=== PATIENT | male | born 1965 | race Caucasian/White ===

== ENCOUNTER → 2017-07-03 10:32 | Outpatient (CLI) | payer OTHER, SELFPAY | PROVIDERS: Family Provider Family Medicine Geriatric Medicine; PCP Family Medicine Geriatric Medicine; Visit Provider Family Medicine Geriatric Medicine | DX: R68.83 Chills (without fever) (principal) | CPT/HCPCS: 87633 ==

== ENCOUNTER → 2017-10-08 14:14 | Outpatient (CLI) | payer OTHER, SELFPAY ==
[2017-10-08 17:30] LABS: Absolute Lymphocyte Count 1.67 X10^3/ul (0.83-4.51); Absolute Neutrophil Count 5.1 X10^3/uL (2.0-7.7); Basophil# 0.08 X10^3/uL; Eosinophil# 0.33 X10^3/uL; Eosinophils% 4.2 % (0-5); Hematocrit 46.9 % (40-54); Hemoglobin 15.3 g/dl (13.0-16.5); Lymphocyte # 1.67 X10^3/ul (4.0); Lymphocyte % 21.5 % (19-41); Mean Corp Hgb Conc 32.6 g/gl (32-36); Mean Corpuscular Volume 94.9 fL (80-94); Mean Platelet Vol. 10.4 fl (6.2-12.0); Monocyte# 0.55 X10^3/uL; Monocyte% 7.1 % (0-10); Neutrophil # 5.13 X10^3/uL (2.7-7.7); Neutrophil % 66.1 % (47-70); Platelet Count 300 K/mm3 (150-450); RBC Distribution Width CV 13.7 % (11.6-14.6); RBC Distribution Width SD 47.1 fl (35.1-43.9); Red Blood Count 4.94 M/mm3 (4.6-6.2); White Blood Count 7.8 K/mm3 (4.4-11.0)
[2017-10-08 17:31] LABS: POSITIVE COUNT NO; POSITIVE DIFFERENTIAL NO; POSITIVE MORPHOLOGY NO
[2017-10-08 17:52] LABS: ALB/GLOB Ratio 1.3 RATIO (0.9-2.4); AST(SGOT) 16 U/L (15-37); Alanine Aminotransfer ALT/SGPT 37 U/L (16-61); Albumin, Serum 4.1 g/dL (3.2-5.0); Alkaline Phosphatase 81 U/L (45-117); Anion Gap 7 (5-15); BUN 16 mg/dL (7-18); BUN/Creat Ratio 12.9 RATIO (10-20); Calcium,Total 8.4 mg/dL (8.5-10.1); Chloride 106 mmol/L (98-107); Creatinine, Serum 1.24 mg/dL (0.70-1.30); EST Glomerular Filtration Rate 65 mL/min (>60); Est Glom Filt Rate - Afr Amer 79 mL/min (>60); Globulin 3.1 g/dL (2.2-4.2); Glucose 166 mg/dL (74-106); Potassium 4.3 mmol/L (3.5-5.1); Protein, Total 7.2 g/dL (6.4-8.2); Sodium Level 141 mmol/L (136-145); Thyroid Stim Hormone (TSH) 1.32 uIU/mL (0.358-3.74)
== END ==
PROVIDERS: Family Provider Family Medicine Geriatric Medicine; PCP Family Medicine Geriatric Medicine; Visit Provider Family Medicine Geriatric Medicine
DX: I10 Essential (primary) hypertension (principal)
CPT/HCPCS: 36415; 80053; 84443; 85025

== ENCOUNTER → 2018-08-17 12:13 | Outpatient (CLI) | payer OTHER, SELFPAY | PROVIDERS: Family Provider Family Medicine Geriatric Medicine; PCP Family Medicine Geriatric Medicine; Referring Provider Family Medicine Geriatric Medicine; Visit Provider Family Medicine Geriatric Medicine | DX: R68.83 Chills (without fever) (principal) | CPT/HCPCS: 87633 ==

== ENCOUNTER → 2018-10-12 09:45 | Outpatient (CLI) | payer OTHER, SELFPAY ==
[2018-10-12 10:34] LABS: Absolute Lymphocyte Count 1.57 X10^3/ul (0.83-4.51); Absolute Neutrophil Count 4.6 X10^3/uL (2.0-7.7); Basophil# 0.11 X10^3/uL; Basophil% 1.5 % (0-1); Eosinophil# 0.47 X10^3/uL; Eosinophils% 6.3 % (0-5); Hemoglobin 16.4 g/dl (13.0-16.5); Lymphocyte # 1.57 X10^3/ul (4.0); Lymphocyte % 20.9 % (19-41); Mean Corp Hgb Conc 34.2 g/gl (32-36); Mean Corpuscular Hgb 30.9 pg (27.0-32.0); Mean Corpuscular Volume 90.4 fL (80-94); Mean Platelet Vol. 10.3 fl (6.2-12.0); Monocyte# 0.73 X10^3/uL; Monocyte% 9.7 % (0-10); Neutrophil # 4.61 X10^3/uL (2.7-7.7); Neutrophil % 61.5 % (47-70); Platelet Count 317 K/mm3 (150-450); RBC Distribution Width CV 13.6 % (11.6-14.6); RBC Distribution Width SD 45.1 fl (35.1-43.9); Red Blood Count 5.31 M/mm3 (4.6-6.2); White Blood Count 7.5 K/mm3 (4.4-11.0)
[2018-10-12 10:36] LABS: POSITIVE COUNT NO; POSITIVE DIFFERENTIAL NO; POSITIVE MORPHOLOGY NO
[2018-10-12 11:41] LABS: ALB/GLOB Ratio 1.1 RATIO (0.9-2.4); AST(SGOT) 36 U/L (15-37); Alanine Aminotransfer ALT/SGPT 68 U/L (16-61); Albumin, Serum 4.1 g/dL (3.2-5.0); Alkaline Phosphatase 111 U/L (45-117); Anion Gap 8 (5-15); BUN 17 mg/dL (7-18); BUN/Creat Ratio 11.9 RATIO (10-20); Calcium,Total 9.7 mg/dL (8.5-10.1); Chloride 105 mmol/L (98-107); Creatinine, Serum 1.43 mg/dL (0.70-1.30); EST Glomerular Filtration Rate 55 mL/min (>60); Est Glom Filt Rate - Afr Amer 67 mL/min (>60); Globulin 3.6 g/dL (2.2-4.2); Glucose 101 mg/dL (74-106); Potassium 4.3 mmol/L (3.5-5.1); Protein, Total 7.7 g/dL (6.4-8.2); Sodium Level 141 mmol/L (136-145); Thyroid Stim Hormone (TSH) 3.17 uIU/mL (0.358-3.74)
== END ==
PROVIDERS: Family Provider Family Medicine Geriatric Medicine; PCP Family Medicine Geriatric Medicine; Visit Provider Family Medicine Geriatric Medicine
DX: I10 Essential (primary) hypertension (principal); E23.6 Other disorders of pituitary gland
CPT/HCPCS: 36415; 80053; 84403; 84443; 85025

== ENCOUNTER 2019-01-04 08:12 | Emergency (ER) | payer OTHER, SELFPAY ==
[2019-01-04 08:13] VITALS: BP 173/107; PULSE 107; RESP 16; TEMP 36.7; O2SAT 97; BMI 35.9
--- NOTE | 2019-01-04 08:17 | NURSING ---
NO OLD EKGS
--- NOTE | 2019-01-04 08:27 | EKG12_ITS ---
Test Reason : CP Blood Pressure : / mmHG Vent. Rate : 105 BPM Atrial Rate : 105 BPM P-R Int : 174 ms QRS Dur : 084 ms QT Int : 336 ms P-R-T Axes : 040 049 026 degrees QTc Int : 444 ms Sinus tachycardia Otherwise normal ECG Confirmed by CHRIS MATHEWS, BRIONNA ([id number]), editorial project manager EDYTA SUAZO ([id number]) on 01/06/2019 8:53:28 AM Referred By: SHIRLEY Confirmed By:BRIONNA PEREZ MD
--- NOTE | 2019-01-04 08:28 | ED.VISSUMM ---
- ER Visit Summary Date of Service: 01/04/19 Chief Complaint: Chest pain History of Present Illness: The patient is a 53 M who presents emergency department for the evaluation of chest pain. Patient states at 0600 hrs. today he experienced the sensation he cannot take a full breath. Feels a tightness across his entire chest. Does not radiate. No sweating. He has been having diarrhea since Friday after eating [employer]. No vomiting. Have a history of reflux symptoms with that have actually been pretty good the past week. Patient states that he never comes to the emergency department but today he was very scared considering his family history. He states his grandfather father and his uncles have all had early heart disease. He had a stress test around the age of 41 that he states was negative. He is a non-smoker. He denies any changes in exercise tolerance. 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 Physical Examination: Afebrile vital signs are stable noted heart rate 107 Gen: Well-nourished well-developed Head: Normocephalic atraumatic Eyes: Perrl EOMI ENT: TMs clear no rhinorrhea moist mucous membranes Neck: Supple no lymphadenopathy no JVD nontender CVS: Regular rate rhythm no murmurs normal S1-S2 Respiratory: No distress clear to auscultation bilaterally chest nontender Abdomen: Soft nontender nondistended normal bowel sounds no masses Back: Nontender Extremity: Nontender no edema Skin: Normal color no rash Neuro: alert orientated ?3 CN II-XII intact normal strength sensation reflexes gait cerebellar Psych: Patient is nervous Test Results: EKG showed a sinus tachycardia at a rate of 105. Basic labs showed a creatinine 1.38. D-dimer 0.44. Troponin is negative. Chest x-ray negative Emergency Department Course and Treatment: Patient's symptoms were abating on its own. He had heartburn that resolved with a single nitroglycerin. He had taken aspirin at home. In speaking with the patient and calculated his YONATHAN score and his heart score we will proceed with a second troponin III hours after the first draw. Second troponin was also negative. At this point he is classified as low risk with both pathways. 2- troponins. Will be discharged to have follow-up with his primary care physician to arrange outpatient stress testing. Return if worsening or concerns Impression: 1. Acute chest pain This note was generated with [employer] software. It may contain incorrect words, spelling, and punctuation that were not noted in review of the chart prior to signing ED Disposition - Plan for ED Patient: Disposition: Home or Assisted Living Instructions: CHEST PAIN, Uncertain Cause Referrals: Robbi Turner Chi, MD [Primary Care Provider] - As soon as possible
--- NOTE | 2019-01-04 08:30 | RAD_ITS ---
STUDY: X-RAY CHEST REASON FOR EXAM: Male, 53 years old. Chest pain. Shortness of breath. TECHNIQUE: Single AP portable view of the chest. COMPARISON: None. FINDINGS: EKG electrodes are seen. Elevation of the right hemidiaphragm. There is no demonstrated pleural abnormality. Normal size heart. Normal mediastinum and kevin. Normal visualized pulmonary arteries. Normal visualized aortic arch and descending thoracic aorta. Normal visualized thoracic spine. Normal visualized ribs, clavicles, and shoulders. There is no demonstrated abnormality of the visualized soft tissue structures of the upper abdomen. RAD/Chest 1 View (Portable) IMPRESSION: No acute abnormality is seen. Electronically Signed: Nabeel Herr, at 8:51 EDT , Service support ,
[2019-01-04 08:52] LABS: Absolute Lymphocyte Count 1.27 X10^3/uL (0.83-4.51); Absolute Neutrophil Count 4.4 X10^3/uL (2.0-7.7); Basophil# 0.05 X10^3/uL; Basophil% 0.7 % (0-1); Eosinophil# 0.47 X10^3/uL; Eosinophils% 6.9 % (0-5); Hematocrit 48.7 % (40-54); Hemoglobin 16.2 g/dL (13.0-16.5); Lymphocyte # 1.27 X10^3/ul (4.0); Lymphocyte % 18.6 % (19-41); Mean Corp Hgb Conc 33.3 g/dL (32-36); Mean Corpuscular Volume 93.3 fL (80-94); Mean Platelet Vol. 9.7 fl (6.2-12.0); Monocyte# 0.64 X10^3/uL; Monocyte% 9.4 % (0-10); NRBC Flagged by Analyzer 0 % (0-5); Neutrophil % 64.3 % (47-70); Platelet Count 293 K/mm3 (150-450); RBC Distribution Width CV 13.1 % (11.6-14.6); RBC Distribution Width SD 44.7 fl (35.1-43.9); Red Blood Count 5.22 M/mm3 (4.6-6.2); White Blood Count 6.8 K/mm3 (4.4-11.0)
[2019-01-04 09:05] LABS: D-Dimer Quantitative (DVT/PE) 0.44 FEU/ug/m (0.27-0.49)
[2019-01-04] MEDS: Nitroglycerin SL (ED/IMG/CATH) 0.4 MG TABLET SUBLINGUAL (09:05)
[2019-01-04 09:09] LABS: Anion Gap 6 (5-15); BUN 15 mg/dL (7-18); BUN/Creat Ratio 10.9 RATIO (10-20); Calcium,Total 9.3 mg/dL (8.5-10.1); Chloride 106 mmol/L (98-107); Creatinine, Serum 1.38 mg/dL (0.70-1.30); EST Glomerular Filtration Rate 57 mL/min (>60); Est Glom Filt Rate - Afr Amer 70 mL/min (>60); Estimated Creatinine Clearance 76.88 ml/min; Glucose 137 mg/dL (74-106); Potassium 3.7 mmol/L (3.5-5.1); Sodium Level 139 mmol/L (136-145)
[2019-01-04 09:13] VITALS: BP 123/93; PULSE 96; RESP 13; O2SAT 94
[2019-01-04 10:09] VITALS: BP 137/92; PULSE 86; RESP 14; O2SAT 96
[2019-01-04 11:56] VITALS: BP 133/95; PULSE 90; RESP 12; O2SAT 96
[2019-01-04 12:27] VITALS: BP 133/105; PULSE 83
== END 2019-01-04 12:27 | disposition home or self-care (01) ==
PROVIDERS: Emergency Provider Emergency Medicine; Family Provider Family Medicine Geriatric Medicine; PCP Family Medicine Geriatric Medicine
DX: R07.9 Chest pain, unspecified (principal); R19.7 Diarrhea, unspecified; R00.0 Tachycardia, unspecified; K21.9 Gastro-esophageal reflux disease without esophagitis; Z79.899 Other long term (current) drug therapy
CPT/HCPCS: 71045; 80048; 84484; 85025; 85379; 93005; 99284; A4216

== ENCOUNTER 2019-01-09 18:18 | Emergency (ER) | payer OTHER, SELFPAY ==
[2019-01-09 18:18] VITALS: BP 137/79; PULSE 101; RESP 21; O2SAT 95
[2019-01-09 18:19] VITALS: BP 137/79; PULSE 102; RESP 18; TEMP 36.7; O2SAT 93; BMI 37.5
[2019-01-09 18:28] VITALS: O2SAT 94
--- NOTE | 2019-01-09 18:28 | EKG12_ITS ---
Test Reason : CP Blood Pressure : / mmHG Vent. Rate : 098 BPM Atrial Rate : 098 BPM P-R Int : 172 ms QRS Dur : 090 ms QT Int : 358 ms P-R-T Axes : 028 015 014 degrees QTc Int : 457 ms Normal sinus rhythm Normal ECG Confirmed by CHRISTIAN MATHEWS, LIZZIE ([id number]), photography editor EDYTA SUAZO ([id number]) on 01/12/2019 1:22:36 PM Referred By: JOAN Confirmed By:LIZZIE GONZALES MD
--- NOTE | 2019-01-09 18:30 | RAD_ITS ---
STUDY: X-RAY CHEST REASON FOR EXAM: Male, 53 years old. Chest pain. TECHNIQUE: Single frontal view of the chest. COMPARISON: January 04, 2019 FINDINGS: There is persistent elevation of the right hemidiaphragm. There is no new focal consolidation. Normal size heart. Normal mediastinum and kevin. Normal visualized pulmonary arteries. Normal visualized aortic arch and descending thoracic aorta. Normal visualized thoracic spine. Normal visualized ribs, clavicles, and shoulders. There is no demonstrated abnormality of the visualized soft tissue structures of the upper abdomen. RAD/Chest 1 View (Portable) IMPRESSION: No acute cardiopulmonary process. Electronically Signed: Leonor Berman MD at 18:58 EDT Tel , Service support ,
[2019-01-09 18:41] LABS: Absolute Lymphocyte Count 2.67 X10^3/uL (0.83-4.51); Absolute Neutrophil Count 6.1 X10^3/uL (2.0-7.7); Basophil# 0.11 X10^3/uL; Basophil% 1.1 % (0-1); Eosinophil# 0.52 X10^3/uL; Hematocrit 44.5 % (40-54); Hemoglobin 15.1 g/dL (13.0-16.5); Lymphocyte # 2.67 X10^3/ul (4.0); Lymphocyte % 25.8 % (19-41); Mean Corp Hgb Conc 33.9 g/dL (32-36); Mean Corpuscular Hgb 31.4 pg (27.0-32.0); Mean Corpuscular Volume 92.5 fL (80-94); Mean Platelet Vol. 9.8 fl (6.2-12.0); Monocyte# 0.88 X10^3/uL; Monocyte% 8.5 % (0-10); NRBC Flagged by Analyzer 0 % (0-5); Platelet Count 315 K/mm3 (150-450); RBC Distribution Width CV 13.2 % (11.6-14.6); RBC Distribution Width SD 44.9 fl (35.1-43.9); Red Blood Count 4.81 M/mm3 (4.6-6.2); White Blood Count 10.3 K/mm3 (4.4-11.0)
[2019-01-09 18:53] LABS: Prothrombin Time (Protime)PT. 12.8 SECONDS (11.7-14.9)
[2019-01-09 18:58] LABS: Anion Gap 8 (5-15); BUN 15 mg/dL (7-18); BUN/Creat Ratio 10.7 RATIO (10-20); Calcium,Total 8.7 mg/dL (8.5-10.1); Chloride 108 mmol/L (98-107); EST Glomerular Filtration Rate 57 mL/min (>60); Est Glom Filt Rate - Afr Amer 68 mL/min (>60); Estimated Creatinine Clearance 75.78 ml/min; Glucose 130 mg/dL (74-106); Potassium 3.3 mmol/L (3.5-5.1); Sodium Level 140 mmol/L (136-145)
--- NOTE | 2019-01-09 19:20 | CT_ITS ---
STUDY: CTA CHEST REASON FOR EXAM: Male, 53 years old. Pleuritic chest pain. RADIATION DOSAGE (If Supplied By Facility): CTDIvol = ( 12.67 ) mGy, DLP = ( 549.35 ) mGycm TECHNIQUE: The examination was performed with the intravenous administration of 100ML IV Isovue 370. Post-processing of the angiographic images was performed, with multiplanar reformation and 3D reconstruction. Individualized dose optimization techniques were used for this CT. COMPARISON: None. FINDINGS: Normal enhancement of the main pulmonary artery and right and left pulmonary arteries. There is suboptimal enhancement of the bilateral peripheral pulmonary arteries. There is no demonstrated gross pulmonary embolism. Normal thoracic aorta and visualized great vessels. There is no demonstrated aortic dissection. There are calcifications of the coronary arteries. Normal mediastinum. Normal hilar regions. Normal visualized trachea and bronchi. There is minimal atelectasis and/or scarring within the lingula. Normal osseous structures. Normal visualized upper abdomen. CT/CTA Chest W/WO Contrast IMPRESSION: No demonstrated pulmonary embolism or arterial dissection. Atherosclerosis. Minimal lingular atelectasis and/or scarring. Electronically Signed: Leonor Berman MD at 20:58 EDT Tel , Service support ,
[2019-01-09] MEDS: 0.9% Normal Saline 1,000 ML 999 ML IV (19:30)
[2019-01-09 22:04] VITALS: BP 142/89; PULSE 85; RESP 18; O2SAT 95
[2019-01-09 22:23] VITALS: BP 146/98; PULSE 84; RESP 15; O2SAT 95
--- NOTE | 2019-01-09 22:23 | ED.VISSUMM ---
- ER Visit Summary Date of Service: 01/09/19 Chief Complaint: Pleuritic chest pain History of Present Illness: The patient is a 53 M history of high cholesterol and hypothyroidism. Patient is now had 7 days of pleuritic chest pain. Denies any hemoptysis. He had a negative stress test years ago. But no prior heart cath. This is not associated with exertion or exercise. It is worse with taking deep breath. He has had no leg pain or leg swelling. He had no recent travel or surgery. He had a negative cardiac work-up on 01/04/2019 along with a negative d-dimer at that time. Physical Examination: Middle-aged male no acute distress. Vital signs are stable and afebrile. Pulse ox 94% on room air no hypoxia. H EENT exam normal. Neck nontender no lymphadenopathy. Lungs clear to auscultation bilaterally. Heart regular rhythm no murmur. Chest were nontender. Abdomen soft nontender. Extremities moves all 4. Equal symmetrical radial pulses. Calves are nontender without edema or cords. Neurologically is awake and alert. Test Results: CBC normal. Chemistries unremarkable potassium 3.3. Creatinine 1.4. PT/INR normal. Troponin normal. Initial EKG sinus rhythm rate 98 with no acute abnormality. No OR or ischemia. Chest x-ray was unremarkable. Patient underwent a CTA of his chest due to the pleuritic nature of his pain and it was read as no acute abnormality read by the radiologist reviewed by me. No PE nor any dissection. Emergency Department Course and Treatment: Repeat exam patient is doing well at 20 2:23 PM. And I discussed all his test results. He will be discharged home. Treatment Plan: Outpatient follow-up. Disposition: Discharge Impression: Acute chest pain uncertain etiology This note was generated with [employer] software. It may contain incorrect words, spelling, and punctuation that were not noted in review of the chart prior to signing ED Disposition - Plan for ED Patient: Referrals: Robbi Turner Chi, MD [Primary Care Provider] -
--- NOTE | 2019-01-09 22:26 | ED.DEP ---
ED Disposition - Plan for ED Patient: Disposition: Home or Assisted Living Instructions: CHEST PAIN, Uncertain Cause Referrals: Robbi Turner Chi, MD [Primary Care Provider] - As soon as possible Additional Instructions: Call follow-up with your doctor.
== END 2019-01-09 22:34 | disposition home or self-care (01) ==
PROVIDERS: Emergency Provider Emergency Medicine; Family Provider Family Medicine Geriatric Medicine; PCP Family Medicine Geriatric Medicine
DX: R07.9 Chest pain, unspecified (principal); E03.9 Hypothyroidism, unspecified; E78.00 Pure hypercholesterolemia, unspecified; Z79.899 Other long term (current) drug therapy
CPT/HCPCS: 71045; 71275; 80048; 84484; 85025; 85610; 93005; 96360; 96361; 99285; J7030; Q9967; A4216

== ENCOUNTER → 2019-01-12 10:29 | Outpatient (CLI) | payer OTHER, SELFPAY ==
[2019-01-04 08:13] VITALS: BMI 35.9
[2019-01-09 18:19] VITALS: BMI 37.5
--- NOTE | 2019-01-12 10:32 | STEWCON_ITS ---
Reason For Study: CHEST PAIN Stress Results Maximum Predicted HR: 168 bpm Target HR: 143 bpm % Maximum Predicted HR: 99 % DurationHeart Rate Stage (mm:ss) (bpm) BP Comment BASELINE 84 132/821.5 CC DEFINITY STAGE 1 3:00 130 162/84 STAGE 2 3:00 151 166/86SLIGHT SOB STAGE 3 1:16 166 / INCREASED SOB, 1.5 CC DEFINITY RECOVERY 129 144/98 Stress Duration: 7:16 mm:ss Maximum Stress HR: 166 bpm METS: 9 Baseline Echocardiogram Findings Stress Echo Wall motion Data Resting WM Intermediate WM Stress WM Resting Wall Motion Wall Motion Stress All segments Normal. All segments Hyperkinetic. Ejection Fraction 55 %. Ejection Fraction 75 %. Stress Results Heart rate response: Appropriate Blood pressure response: Normal resting blood pressure-appropriate response Arrhythmias: None Functional capacity: Average Stopped secondary to: Dyspnea. EKG Data The baseline ECG displays normal sinus rhythm. Peak exercise ECG: No obvious ECG changes. Symptoms with Stress No complaint of chest discomfort concerning for angina pectoris during exercise or recovery. Interpretation Summary Technically difficult study Contrast injection performed Negative (adequate) stress echocardiogram Ordering Physician: Robbi Turner Referring Physician: Robbi Turner Chi Performed By: Judy Samuel RDCS
[2019-01-12 18:01] LABS: Anion Gap 7 (5-15); BUN 16 mg/dL (7-18); Calcium,Total 8.8 mg/dL (8.5-10.1); Chloride 110 mmol/L (98-107); Creatinine, Serum 1.33 mg/dL (0.70-1.30); EST Glomerular Filtration Rate 60 mL/min (>60); Est Glom Filt Rate - Afr Amer 73 mL/min (>60); Glucose 152 mg/dL (74-106); Potassium 3.5 mmol/L (3.5-5.1); Sodium Level 143 mmol/L (136-145)
== END ==
PROVIDERS: Family Provider Family Medicine Geriatric Medicine; PCP Family Medicine Geriatric Medicine; Referring Provider Family Medicine Geriatric Medicine; Visit Provider Family Medicine Geriatric Medicine
DX: R07.9 Chest pain, unspecified (principal); I10 Essential (primary) hypertension
CPT/HCPCS: 36415; 80048; 93017; 93350; Q9957; A4216; C8928

== ENCOUNTER 2019-02-01 07:48 | Day surgery (SDC) | payer OTHER, SELFPAY ==
[2019-01-20 08:41] VITALS: BMI 36.8
[2019-02-01 08:23] VITALS: BMI 35.9
--- NOTE | 2019-02-01 08:32 | HP.PCM_ITS ---
History and Physical Date of Admission: 02/01/19 History of Present Illness Pleasant 53-year-old gentleman with no previous cardiac history but a strong family history of cardiac disease who has been having chest discomfort described as a tightness. He presents here today for a diagnostic heart cath. He does have a history of hypertension, hyperlipidemia, obesity,. He had presented to the emergency room on 01/09/2019. The chest discomfort was not associated with exercise or exertion it appeared to be worse taking a deep breath. His d-dimer was negative his EKG did not demonstrate any significant abnormality. He had a CAT scan done of his chest which did not demonstrate any significant of normality other than mild coronary calcification. He has continued to have some of this chest discomfort his blood pressure has also been elevated and he was started on a beta-amari. He has been keeping meticulous records of his blood pressures but he still has had diastolic blood pressures which have been over 80. He did perform a stress test to 9 metabolic equivalents with no wall motion abnormalities. He has been concerned about the above discomfort especially with his family history and presents here for an evaluation. Intake VS: See chart Allergies No Known Allergies Allergy (Verified 01/20/19 08:42) Medications Levothyroxine [Synthroid] 150 mcg PO DAILY 01/04/19 [History Confirmed 01/20/19] Atorvastatin Calcium 40 mg PO QHS 01/09/19 [History Confirmed 01/20/19] acyclovir 400 mg tablet PO #60 tab 01/13/19 [History Confirmed 01/20/19] omeprazole 20 mg capsule,delayed release 20 mg PO DAILY #90 cap 01/13/19 [Histor y Confirmed 01/20/19] amlodipine 5 mg tablet 5 mg PO DAILY #90 tab 01/20/19 [Rx Confirmed 01/20/19] aspirin 81 mg tablet,delayed release 81 mg PO DAILY 01/20/19 [History Confirmed 01/20/19] metoprolol tartrate 25 mg tablet 25 mg PO BID #60 tab 01/20/19 [History Confirmed 01/20/19] [facility] Medical History Essential (primary) hypertension (Chronic) Hyperlipidemia (Chronic) GERD (gastroesophageal reflux disease) (Chronic) Genital herpes (Chronic) History of nephrolithiasis (Chronic) Hypersomnia, unspecified (Chronic) Hypothyroidism (Chronic) Surgical History History of appendectomy (Resolved) Family History Father Myocardial infarction, Onset Age: 40 Heart disease Grandfather Myocardial infarction, Onset Age: 40 Heart disease Aunt Heart disease Uncle Heart disease Social History (Updated 01/20/19 @ 11:10 by Jesus Zuñiga MD) Smoking Status: Former smoker alcohol intake: current alcohol intake frequency: holidays/special occasions only ROS Const Const: Positive for fatigue; negative for weakness, headache(s), frequent falls, difficulty sleeping or excessive sweating Eyes Eyes: Negative for loss of peripheral vision, transient loss of vision, blurry vision, double vision or tunnel vision ENT ENT: Negative for headache(s), dizziness, Nosebleed/epistaxis or balance pro blems Cardio Chest Pain: Yes Frequency: daily Character: sharp Onset: at rest Location: mid sternal, right chest Duration: continuous Exacerbation: exercise, activity, positional Relieving: positional Recurrence: activity, rest, positional Palpitations: No Edema: None Muscle aches with walking: None Resp Respiratory: Positive for SOB with activity; negative for SOB at rest, SOB orthopnea\SOB lying down, Cough or paroxysmal nocturnal dyspnea GI GI: Negative nausea, vomiting, heartburn or black,tarry stools : Negative for hematuria Musc Musc: Negative for muscle aches/ myalgia, muscle weakness, joint pain or balance problems Skin Skin: Negative non-healing lesions, rash or unusual bruising Neuro Neuro: Negative for dizziness, lightheadedness, near syncope, syncope, orthostatic symptoms, frequent falls, headache(s), weakness, blurry vision, double vision or lack of coordination Rom Hematologic/Lymphatic: Negative for easy bleeding or easy bruising Endo Endo: Positive for fatigue; negative for excessive sweating or increased thirst/drinking Psych Psych: Negative for anxiety or depression Allergy Allergy/Immunology: Negative for hives, Negative for rash Cardiology Exam Const Appearance: cooperative, healthy appearing, no acute distress, well developed and well groomed Nutritional Appearance: average body habitus and well nourished Orientation: alert, awake and oriented x3 Head Head: normal to inspection, normocephalic and atraumatic Ears: hearing grossly normal bilaterally and external ears normal Nose: external nose normal, nares normal, nasal mucous membranes and turbinates normal, septum normal, no nasal discharge Face and Sinus: face symmetric Mouth: oral mucosae normal, tongue normal, oropharynx normal and moist mucous membranes Teeth and gingiva: dentition normal Throat: posterior oropharynx normal, tonsils normal and uvula midline Eyes General: appearance normal, both eyes and all related structures Eyelids: eyelids normal Conjunctivae: conjunctivae normal Pupils: PERRL, normal by confrontation and accommodation normal EOM: EOM intact bilaterally Neck Neck: normal visual inspection, trachea midline and no JVD JVD: +5 Carotids: normal carotid upstroke and bounding pulses Chest Chest inspection: normal inspection of the chest, symmetric chest movement and normal respiratory effort Auscultation: Bilateral: Clear to Auscultation Cardio Palpation: normal PMI Rate: regular rate Rhythm: regular rhythm Heart sounds: S1 normal, S2 normal and normal, physiologic split S2; negative rub, gallop or murmur GI GI: normal to inspection, soft, no hepatosplenomegaly and bowel sounds present Neuro General: alert, awake, oriented x3, gait normal, moves all extremities and no focal sensory deficit Skin Skin: no rashes or lesions noted Extremities Pulses: Normal: Right Femoral Pulse, Left Femoral Pulse, Right Dorsalis Pedis Pulse, Left Dorsalis Pedis Pulse, Right Posterior Tibial Pulse, Left Posterior Tibial Pulse, Right Radial Pulse, Left Radial Pulse Lower Extremity Edema: None: Bilateral Musculoskel Musculoskeletal: No joint tenderness Psych Psychological: normal affect Assessment & Plan 1. Chest pain R07.9 Plan He does have chest discomfort which has some characteristics which are concerning for coronary artery disease. His CAT scan did demonstrate evidence of coronary calcification which is unusual given his age. With his strong family history I would recommend that we proceed with a left heart catheterization, this will be done today. The risk benefits and alternatives have been explained to him he understands and agrees to proceed. 2. Essential (primary) hypertension I10 Plan He does have a history of hypertension which is not very well controlled, at his OV we had added amlodipine 5 mg a day to his regimen. He was continuing on his beta amari. Based on his heart cath today will further adjust if need be.
--- NOTE | 2019-02-01 09:49 | CL.D_ITS ---
Patient Name: DADA SOLO Study Date: 02/01/2019 Performing: Jesus Zuñiga MD Ht: 74 inches 187.96 cm : 1965 Wt: 295.4 lbs 133.81 kg Age: 53 Gender: male BSA: 2.56 PROCEDURE(S) PERFORMED PG49-TNE/COR/LV CLINICAL PROFILE AND INDICATIONS Indications: Suspected CAD Heart Failure: None Stress/Imaging Stress/Image Study Performed: No CAD Presentations: Other: high calcium score CONCLUSIONS Normal coronary arteries Normal LV size, wall motion,and systolic function RECOMMENDATIONS Medical therapy DESCRIPTION OF PROCEDURE The patient arrived to the procedure lab. The risks and benefits of the procedure as well as a full d escription of our services here and current unavailability of surgical backup were fully explained to the patient and/or their significant other prior to the catheterization. The Timeout was completed, verifying the correct patient and procedure. The patient's procedural site was prepped and draped in the usual fashion. Local anesthetic was given subcutaneously to right radial region with Lidocaine 2% . Using a modified Seldinger technique, arterial access was obtained via the right radial artery, a 6 Fr sheath was inserted. Right Coronary Artery selective angiography was then performed in multiple v iews using a 5 Fr. 4.0 [place] catheter. Left Coronary Artery selective angiography was performed in mu ltiple views using a 5 Fr. 4.0 [place] catheter. Left Ventriculography was performed in SPICER projection using a 5 Fr. Pigtail catheter. LV to AO pullback pressures were then recorded.The arterial sheath was pulled and a TR Band was applied for hemostasis. 11cc of air CORONARY ANGIOGRAPHY DOMINANCE: Right Dominant LEFT HEART ASSESSMENT Left Ventricular Ejection Fraction: by LV Gram 60 % Normal LV wall motion Normal Left Ventricular systolic function Normal Left Ventricular systolic function LEFT MAIN: Angiographically normal LEFT ANTERIOR DESCENDING ARTERY: Angiographically normal CIRCUMFLEX ARTERY: Angiographically normal RIGHT CORONARY ARTERY: Angiographically normal COMPLICATIONS No Complications PROCEDURE MEDICATIONS Fentanyl 50 mcg IV Versed 1 mg IV Oxygen: 2 L/min via nasal cannula Heparin diluted in 23cc Heparinized saline. Patient given 10cc IA of this solution. 02/01/2019 09:26:3 9 Verapamil 2.5mg, Ntg 100mcgs, 2000 units of Heparin diluted in 23cc Heparinized saline. Patient give n 10cc IA of this solution. 02/01/2019 09:26:39 SUMMARY OF HEMODYNAMIC DATA Time AIR REST ECG 08:22:28 AO 117/91 (104) SA 09:29:22 LV 118/10, 17 09:38:00 LV 120/11, 16 09:38:06 LVp 123/88, 93 09:38:53 AOp 113/81 (96) 09:38:58 09:44:10 Signed By Jesus Zuñiga MD On 02/01/2019 09:48:22 Jesus Zuñiga MD
== END 2019-02-01 12:15 | disposition home or self-care (01) ==
LOC: CLSP 07:49
PROVIDERS: Family Provider Family Medicine Geriatric Medicine; PCP Family Medicine Geriatric Medicine; Referring Provider Internal Medicine Cardiovascular Disease; Visit Provider Internal Medicine Cardiovascular Disease
DX: R07.9 Chest pain, unspecified (principal); I10 Essential (primary) hypertension; E78.5 Hyperlipidemia, unspecified; E03.9 Hypothyroidism, unspecified; G47.10 Hypersomnia, unspecified; K21.9 Gastro-esophageal reflux disease without esophagitis; E66.9 Obesity, unspecified; Z79.82 Long term (current) use of aspirin; Z79.899 Other long term (current) drug therapy; Z87.442 Personal history of urinary calculi; Z87.891 Personal history of nicotine dependence
CPT/HCPCS: 93458; 99152; J7040; Q9967; C1769; C1894

== ENCOUNTER → 2019-04-12 15:59 | Outpatient (CLI) | payer OTHER, SELFPAY ==
[2019-04-12 17:39] LABS: Absolute Lymphocyte Count 2.17 X10^3/uL (0.83-4.51); Absolute Neutrophil Count 5.3 X10^3/uL (2.0-7.7); Basophil# 0.11 X10^3/uL; Basophil% 1.2 % (0-1); Eosinophil# 0.56 X10^3/uL; Eosinophils% 6.3 % (0-5); Hematocrit 43.1 % (40-54); Hemoglobin 14.3 g/dL (13.0-16.5); Lymphocyte # 2.17 X10^3/ul (4.0); Lymphocyte % 24.2 % (19-41); Mean Corp Hgb Conc 33.2 g/dL (32-36); Mean Corpuscular Hgb 31.2 pg (27.0-32.0); Mean Corpuscular Volume 94.1 fL (80-94); Mean Platelet Vol. 10.3 fl (6.2-12.0); Monocyte# 0.82 X10^3/uL; Monocyte% 9.2 % (0-10); NRBC Flagged by Analyzer 0 % (0-5); Neutrophil # 5.27 X10^3/uL (2.7-7.7); Neutrophil % 58.8 % (47-70); Platelet Count 328 K/mm3 (150-450); RBC Distribution Width CV 13.6 % (11.6-14.6); RBC Distribution Width SD 46.9 fl (35.1-43.9); Red Blood Count 4.58 M/mm3 (4.6-6.2)
[2019-04-12 17:52] LABS: ALB/GLOB Ratio 1.3 RATIO (0.9-2.4); AST(SGOT) 16 U/L (15-37); Alanine Aminotransfer ALT/SGPT 46 U/L (16-61); Albumin, Serum 4.1 g/dL (3.2-5.0); Alkaline Phosphatase 105 U/L (45-117); Anion Gap 6 (5-15); BUN 18 mg/dL (7-18); BUN/Creat Ratio 14.6 RATIO (10-20); Chloride 106 mmol/L (98-107); Creatinine, Serum 1.23 mg/dL (0.70-1.30); EST Glomerular Filtration Rate 66 mL/min (>60); Est Glom Filt Rate - Afr Amer 79 mL/min (>60); Globulin 3.2 g/dL (2.2-4.2); Glucose 105 mg/dL (74-106); Potassium 4.1 mmol/L (3.5-5.1); Protein, Total 7.3 g/dL (6.4-8.2); Sodium Level 138 mmol/L (136-145); Thyroid Stim Hormone (TSH) 0.53 uIU/mL (0.358-3.74)
== END ==
PROVIDERS: Family Provider Family Medicine Geriatric Medicine; PCP Family Medicine Geriatric Medicine; Visit Provider Family Medicine Geriatric Medicine
DX: I10 Essential (primary) hypertension (principal); E23.6 Other disorders of pituitary gland
CPT/HCPCS: 36415; 80053; 84403; 84443; 85025

== ENCOUNTER → 2019-07-09 11:32 | Outpatient (CLI) | payer OTHER, SELFPAY ==
[2019-07-09 12:37] LABS: Erythrocyte Sedimentation Rate 5 mm/hr (0-20)
[2019-07-09 12:41] LABS: Absolute Lymphocyte Count 1.62 X10^3/uL (0.83-4.51); Absolute Neutrophil Count 5.1 X10^3/uL (2.0-7.7); Basophil% 1.3 % (0-1); Eosinophil# 0.53 X10^3/uL; Eosinophils% 6.7 % (0-5); Hematocrit 46.1 % (40-54); Hemoglobin 14.8 g/dL (13.0-16.5); Lymphocyte # 1.62 X10^3/ul (4.0); Lymphocyte % 20.4 % (19-41); Mean Corp Hgb Conc 32.1 g/dL (32-36); Mean Corpuscular Volume 93.3 fL (80-94); Mean Platelet Vol. 10.4 fl (6.2-12.0); Monocyte# 0.63 X10^3/uL; Monocyte% 7.9 % (0-10); NRBC Flagged by Analyzer 0 % (0-5); Neutrophil # 5.05 X10^3/uL (2.7-7.7); Neutrophil % 63.4 % (47-70); Platelet Count 331 K/mm3 (150-450); RBC Distribution Width CV 13.3 % (11.6-14.6); RBC Distribution Width SD 45.9 fl (35.1-43.9); Red Blood Count 4.94 M/mm3 (4.6-6.2)
[2019-07-09 12:45] LABS: BNP,B-Type NATRIURETIC PEPTIDE 33.2 pg/mL (0-100)
[2019-07-09 12:46] LABS: ALB/GLOB Ratio 1.1 RATIO (0.9-2.4); AST(SGOT) 22 U/L (15-37); Alanine Aminotransfer ALT/SGPT 51 U/L (16-61); Alkaline Phosphatase 121 U/L (45-117); Anion Gap 4 (5-15); BUN 17 mg/dL (7-18); BUN/Creat Ratio 13.1 RATIO (10-20); CPK Total, Creatine Kinase 243 U/L (39-308); Calcium,Total 9.3 mg/dL (8.5-10.1); Chloride 108 mmol/L (98-107); EST Glomerular Filtration Rate 61 mL/min (>60); Est Glom Filt Rate - Afr Amer 74 mL/min (>60); Globulin 3.5 g/dL (2.2-4.2); Glucose 100 mg/dL (74-106); Potassium 3.9 mmol/L (3.5-5.1); Protein, Total 7.5 g/dL (6.4-8.2); Sodium Level 140 mmol/L (136-145); Uric Acid 5.2 mg/dL (3.5-7.2)
[2019-07-10 10:40] LABS: Myoglobin, Serum 54 ng/mL (28-72)
== END ==
PROVIDERS: PCP Family Medicine Geriatric Medicine; Visit Provider Family Medicine Geriatric Medicine
DX: R60.9 Edema, unspecified (principal); M10.9 Gout, unspecified; R07.9 Chest pain, unspecified
CPT/HCPCS: 36415; 80053; 82550; 83874; 83880; 84484; 84550; 85025; 85652; 86140

== ENCOUNTER → 2019-10-21 10:29 | Outpatient (CLI) | payer OTHER, SELFPAY ==
[2019-08-10 15:36] VITALS: BMI 35.2
[2019-10-21 12:47] LABS: Absolute Lymphocyte Count 1.95 X10^3/uL (0.83-4.51); Basophil# 0.13 X10^3/uL; Basophil% 1.5 % (0-1); Eosinophil# 0.79 X10^3/uL; Eosinophils% 9.2 % (0-5); Hematocrit 44.8 % (40-54); Hemoglobin 14.2 g/dL (13.0-16.5); Lymphocyte # 1.95 X10^3/ul (4.0); Lymphocyte % 22.6 % (19-41); Mean Corp Hgb Conc 31.7 g/dL (32-36); Mean Corpuscular Hgb 30.1 pg (27.0-32.0); Mean Corpuscular Volume 95.1 fL (80-94); Mean Platelet Vol. 10.3 fl (6.2-12.0); Monocyte# 0.76 X10^3/uL; Monocyte% 8.8 % (0-10); NRBC Flagged by Analyzer 0 % (0-5); Neutrophil # 4.97 X10^3/uL (2.7-7.7); Neutrophil % 57.7 % (47-70); Platelet Count 352 K/mm3 (150-450); RBC Distribution Width SD 49.1 fl (35.1-43.9); Red Blood Count 4.71 M/mm3 (4.6-6.2); White Blood Count 8.6 K/mm3 (4.4-11.0)
[2019-10-21 13:14] LABS: ALB/GLOB Ratio 1.2 RATIO (0.9-2.4); AST(SGOT) 25 U/L (15-37); Alanine Aminotransfer ALT/SGPT 60 U/L (16-61); Albumin, Serum 3.8 g/dL (3.2-5.0); Alkaline Phosphatase 95 U/L (45-117); Anion Gap 7 (5-15); BUN 17 mg/dL (7-18); Calcium,Total 9.1 mg/dL (8.5-10.1); Chloride 105 mmol/L (98-107); Creatinine, Serum 1.21 mg/dL (0.70-1.30); EST Glomerular Filtration Rate 67 mL/min (>60); Est Glom Filt Rate - Afr Amer 81 mL/min (>60); Globulin 3.2 g/dL (2.2-4.2); Glucose 94 mg/dL (74-106); Potassium 4.4 mmol/L (3.5-5.1); Sodium Level 140 mmol/L (136-145); Thyroid Stim Hormone (TSH) 0.35 uIU/mL (0.358-3.74)
== END ==
PROVIDERS: PCP Family Medicine Geriatric Medicine; Visit Provider Family Medicine Geriatric Medicine
DX: E23.6 Other disorders of pituitary gland (principal); I10 Essential (primary) hypertension
CPT/HCPCS: 36415; 80053; 84403; 84443; 85025

== ENCOUNTER → 2020-05-01 08:57 | Outpatient (CLI) | payer OTHER, SELFPAY ==
[2019-08-10 15:36] VITALS: BMI 35.2
[2020-05-01 11:30] LABS: Absolute Neutrophil Count 5.2 X10^3/uL (2.0-7.7); Basophil# 0.11 X10^3/uL; Basophil% 1.3 % (0-1); Eosinophil# 0.78 X10^3/uL; Hematocrit 47.9 % (40-54); Hemoglobin 15.7 g/dL (13.0-16.5); Lymphocyte % 20.7 % (19-41); Mean Corp Hgb Conc 32.8 g/dL (32-36); Mean Corpuscular Hgb 31.2 pg (27.0-32.0); Mean Corpuscular Volume 95.2 fL (80-94); Mean Platelet Vol. 10.2 fl (6.2-12.0); Monocyte# 0.78 X10^3/uL; NRBC Flagged by Analyzer 0 % (0-5); Neutrophil % 59.8 % (47-70); Platelet Count 344 K/mm3 (150-450); RBC Distribution Width CV 13.3 % (11.6-14.6); RBC Distribution Width SD 46.9 fl (35.1-43.9); Red Blood Count 5.03 M/mm3 (4.6-6.2); White Blood Count 8.7 K/mm3 (4.4-11.0)
[2020-05-01 11:54] LABS: ALB/GLOB Ratio 1.2 RATIO (0.9-2.4); AST(SGOT) 26 U/L (15-37); Alanine Aminotransfer ALT/SGPT 61 U/L (16-61); Alkaline Phosphatase 104 U/L (45-117); Anion Gap 5 (5-15); BUN 17 mg/dL (7-18); Chloride 108 mmol/L (98-107); Creatinine, Serum 1.31 mg/dL (0.70-1.30); EST Glomerular Filtration Rate 61 mL/min (>60); Est Glom Filt Rate - Afr Amer 73 mL/min (>60); Globulin 3.4 g/dL (2.2-4.2); Glucose 82 mg/dL (74-106); Potassium 4.3 mmol/L (3.5-5.1); Protein, Total 7.4 g/dL (6.4-8.2); Sodium Level 141 mmol/L (136-145); Thyroid Stim Hormone (TSH) 0.63 uIU/mL (0.358-3.74)
== END ==
PROVIDERS: PCP Family Medicine Geriatric Medicine; Visit Provider Family Medicine Geriatric Medicine
DX: I10 Essential (primary) hypertension (principal)
CPT/HCPCS: 36415; 80053; 84443; 85025

== ENCOUNTER → 2020-10-26 16:32 | Outpatient (CLI) | payer OTHER, SELFPAY ==
[2020-08-08 15:45] VITALS: BMI 36.5
[2020-10-26 17:27] LABS: Absolute Lymphocyte Count 2.55 X10^3/uL (0.83-4.51); Absolute Neutrophil Count 4.6 X10^3/uL (2.0-7.7); Basophil# 0.11 X10^3/uL; Basophil% 1.3 % (0-1); Eosinophil# 0.69 X10^3/uL; Eosinophils% 7.9 % (0-5); Hemoglobin 15.4 g/dL (13.0-16.5); Lymphocyte # 2.55 X10^3/ul (0.83-4.51); Lymphocyte % 29.1 % (19-41); Mean Corp Hgb Conc 32.8 g/dL (32-36); Mean Corpuscular Hgb 30.5 pg (27.0-32.0); Mean Corpuscular Volume 93.1 fL (80-94); Mean Platelet Vol. 10.1 fl (6.2-12.0); Monocyte# 0.78 X10^3/uL; Monocyte% 8.9 % (0-10); NRBC Flagged by Analyzer 0 % (0-5); Neutrophil # 4.62 X10^3/uL (2.7-7.7); Neutrophil % 52.6 % (47-70); Platelet Count 335 K/mm3 (150-450); RBC Distribution Width CV 13.2 % (11.6-14.6); RBC Distribution Width SD 44.3 fl (35.1-43.9); Red Blood Count 5.05 M/mm3 (4.6-6.2); White Blood Count 8.8 K/mm3 (4.4-11.0)
--- NOTE | 2020-10-26 17:35 | RAD_ITS ---
STUDY: X-RAY - LEFT KNEE REASON FOR EXAM: Male, 55 years old. KNEE PAIN FOR SEVERAL MONTHS WITH POPPING SOUND. NO INJURY. TECHNIQUE: 4 view(s) of the knee. COMPARISON: None. FINDINGS: Normal visualized distal femur. Normal visualized proximal tibia and fibula. Normal proximal tibiofibular articulation. There is no demonstrated fracture. Normal medial femorotibial compartment. Normal lateral femorotibial compartment. Normal patellofemoral articulation. There is no demonstrated joint effusion. The soft tissue structures are unremarkable. RAD/Knee 4 or More Views IMPRESSION: Normal x-ray examination of the knee. Electronically Signed: Natalio Bullock MD at 19:34 EDT , Service support ,
[2020-10-26 17:57] LABS: Vitamin D,25 Hydroxy 69.3 ng/mL
[2020-10-26 18:05] LABS: ALB/GLOB Ratio 1.2 RATIO (0.9-2.4); AST(SGOT) 58 U/L (15-37); Alanine Aminotransfer ALT/SGPT 134 U/L (16-61); Albumin, Serum 3.9 g/dL (3.2-5.0); Alkaline Phosphatase 135 U/L (45-117); Anion Gap 7 (5-15); BUN 15 mg/dL (7-18); Calcium,Total 8.9 mg/dL (8.5-10.1); Chloride 105 mmol/L (98-107); Creatinine, Serum 1.36 mg/dL (0.70-1.30); EST Glomerular Filtration Rate 58 mL/min (>60); Est Glom Filt Rate - Afr Amer 70 mL/min (>60); Globulin 3.3 g/dL (2.2-4.2); Glucose 95 mg/dL (74-106); Potassium 4.3 mmol/L (3.5-5.1); Protein, Total 7.2 g/dL (6.4-8.2); Sodium Level 141 mmol/L (136-145); Thyroid Stim Hormone (TSH) 0.91 uIU/mL (0.358-3.74)
== END ==
PROVIDERS: PCP Family Medicine Geriatric Medicine; Visit Provider Family Medicine Geriatric Medicine
DX: I10 Essential (primary) hypertension (principal); E55.9 Vitamin D deficiency, unspecified; M25.562 Pain in left knee
CPT/HCPCS: 36415; 73564; 80053; 82306; 84443; 85025

== ENCOUNTER → 2020-11-06 08:44 | Outpatient (CLI) | payer OTHER, SELFPAY ==
[2020-08-08 15:45] VITALS: BMI 36.5
--- NOTE | 2020-11-06 08:55 | US_ITS ---
STUDY: ABDOMINAL ULTRASOUND - RIGHT UPPER QUADRANT REASON FOR VISIT: Male, 55 years old ELEVATED LIVER ENZYMES TECHNIQUE: Ultrasound evaluation of the right upper quadrant was performed with real-time and static tillman-scale imaging. TECHNICAL QUALITY: Limited. Examination limited due to a combination of factors including obesity and bowel gas. COMPARISON: None. FINDINGS: Liver: The liver measures 16.9 cm. There is increased echogenicity consistent with fatty infiltration. The bile ducts are within normal limits. There is hepatic color flow. The direction of portal flow is hepatopetal. There is no demonstrated mass lesion. Gallbladder: Normal distended gallbladder. The gallbladder wall measures 1.4 mm. There is a negative sonographic Patel''s sign. There is no pericholecystic fluid. There are no gallstones. Common Bile Duct (C.B.D.): The common bile duct measures 4 mm. Pancreas: Normal size of the head, body of the pancreas. The tail portion of the pancreas is obscured due to overlying bowel gas. There is increased echogenicity of the pancreas. There is no demonstrated pancreatic mass or cyst. Right Kidney: Normal size of the right kidney. The right kidney measures 11.6 cm x 5.6 cm x 5.5 cm. Normal renal cortex. The right cortex measures 1.5 cm. There is no demonstrated renal mass or cyst. There is no right hydronephrosis. US/Abdomen Limited IMPRESSION: Fatty infiltration of the liver. Electronically Signed: Nabeel Herr MD at 10:04 EDT , Service support ,
== END ==
PROVIDERS: PCP Family Medicine Geriatric Medicine; Referring Provider Family Medicine Geriatric Medicine; Visit Provider Family Medicine Geriatric Medicine
DX: R74.8 Abnormal levels of other serum enzymes (principal)
CPT/HCPCS: 76705

== ENCOUNTER → 2020-11-06 10:32 | Outpatient (CLI) | payer OTHER, SELFPAY ==
[2020-08-08 15:45] VITALS: BMI 36.5
[2020-11-07 05:07] LABS: HEPATITIS B SURFACE AG Negative (Negative); Hepatitis A AB, Total Negative (Negative); Hepatitis A IgM Antibody Negative (Negative); Hepatitis B Core AB IgM Negative (Negative); Hepatitis B Core Ab Total Negative (Negative); Hepatitis C Ab <0.1 s/co ratio (0.0-0.9)
[2020-11-07 11:15] LABS: Hep B Surface Antibodies Non Reactive (.)
== END ==
PROVIDERS: PCP Family Medicine Geriatric Medicine; Visit Provider Family Medicine Geriatric Medicine
DX: R74.8 Abnormal levels of other serum enzymes (principal)
CPT/HCPCS: 36415; 86704; 86705; 86706; 86708; 86709; 86803; 87340

== ENCOUNTER → 2021-05-02 13:33 | Outpatient (CLI) | payer OTHER, SELFPAY ==
[2021-05-02 15:14] LABS: Absolute Lymphocyte Count 2.21 X10^3/uL (0.83-4.51); Absolute Neutrophil Count 4.3 X10^3/uL (2.0-7.7); Basophil# 0.11 X10^3/uL; Basophil% 1.4 % (0-1); Eosinophils% 10.1 % (0-5); Hematocrit 45.2 % (40-54); Hemoglobin 14.7 g/dL (13.0-16.5); Lymphocyte # 2.21 X10^3/ul (0.83-4.51); Lymphocyte % 27.8 % (19-41); Mean Corp Hgb Conc 32.5 g/dL (32-36); Mean Corpuscular Hgb 30.6 pg (27.0-32.0); Mean Platelet Vol. 10.6 fl (6.2-12.0); Monocyte# 0.53 X10^3/uL; Monocyte% 6.7 % (0-10); NRBC Flagged by Analyzer 0 % (0-5); Neutrophil # 4.27 X10^3/uL (2.7-7.7); Neutrophil % 53.7 % (47-70); Platelet Count 306 K/mm3 (150-450); RBC Distribution Width CV 13.2 % (11.6-14.6); RBC Distribution Width SD 45.5 fl (35.1-43.9); Red Blood Count 4.81 M/mm3 (4.6-6.2); White Blood Count 7.9 K/mm3 (4.4-11.0)
[2021-05-02 15:36] LABS: ALB/GLOB Ratio 1.2 RATIO (0.9-2.4); AST(SGOT) 27 U/L (15-37); Alanine Aminotransfer ALT/SGPT 61 U/L (16-61); Albumin, Serum 3.9 g/dL (3.2-5.0); Alkaline Phosphatase 92 U/L (45-117); Anion Gap 8 (5-15); BUN 18 mg/dL (7-18); BUN/Creat Ratio 11.2 RATIO (10-20); Calcium,Total 8.9 mg/dL (8.5-10.1); Chloride 106 mmol/L (98-107); EST Glomerular Filtration Rate 48 mL/min (>60); Est Glom Filt Rate - Afr Amer 58 mL/min (>60); Globulin 3.3 g/dL (2.2-4.2); Glucose 146 mg/dL (74-106); Potassium 4.4 mmol/L (3.5-5.1); Protein, Total 7.2 g/dL (6.4-8.2); Sodium Level 142 mmol/L (136-145); Thyroid Stim Hormone (TSH) 0.43 uIU/mL (0.358-3.74)
== END ==
PROVIDERS: PCP Family Medicine Geriatric Medicine; Visit Provider Family Medicine Geriatric Medicine
DX: I10 Essential (primary) hypertension (principal); E23.6 Other disorders of pituitary gland
CPT/HCPCS: 36415; 80053; 84403; 84443; 85025

== ENCOUNTER → 2021-05-24 07:09 | Outpatient (CLI) | payer OTHER, SELFPAY ==
--- NOTE | 2021-05-24 07:15 | US_ITS ---
STUDY: ABDOMINAL ULTRASOUND - ELASTOGRAPHY REASON FOR VISIT: Male, 55 years old. History of fatty infiltration of the liver. TECHNIQUE: Liver stiffness measurements were obtained on a CellVir RS 85 ultrasound machine using a CA 1-7 probe following the SRU guidelines. 3 measurements were obtained using a 2-D-SWE method. The IQR/M was 21% suggesting a quality data set. TECHNICAL QUALITY: Adequate. COMPARISON: Comparison is made with prior examination done earlier in the day. FINDINGS: Liver: Fatty infiltration of the liver. Median liver stiffness measured 4.4 kPa. US/Elastography Parenchyma/Organ IMPRESSION: Liver stiffness measures 4.4 kPa compatible with F0 Metavir score. Electronically Signed: Nabeel Herr MD at 10:16 EST , Service support ,
--- NOTE | 2021-05-24 07:15 | US_ITS ---
STUDY: ABDOMINAL ULTRASOUND - RIGHT UPPER QUADRANT REASON FOR VISIT: Male, 55 years old FATTY LIVER TECHNIQUE: Ultrasound evaluation of the right upper quadrant was performed with real-time and static tillman-scale imaging. TECHNICAL QUALITY: Adequate. COMPARISON: Comparison is made with prior study dated 11/06/2020. FINDINGS: Liver: The liver measures 15.9 cm. There is increased echogenicity consistent with fatty infiltration. The bile ducts are within normal limits. There is hepatic color flow. The direction of portal flow is hepatopetal. There is no demonstrated mass lesion. Gallbladder: Normal distended gallbladder. The gallbladder wall measures 2.2 mm. There is a negative sonographic Patel''s sign. There is no pericholecystic fluid. There are no gallstones. Common Bile Duct (C.B.D.): The common bile duct measures 4.7 mm. Pancreas: There is nonvisualization of the pancreas due to overlying bowel gas. Right Kidney: Normal size of the right kidney. The right kidney measures 12.4 cm x 6.4 cm x 6.5 cm. Normal renal cortex. The right cortex measures 1.9 cm. There is no demonstrated renal mass or cyst. There is no right hydronephrosis. US/Abdomen Limited IMPRESSION: Fatty infiltration of the liver. Stable examination. Electronically Signed: Nabeel Herr MD at 10:17 EST , Service support ,
== END ==
PROVIDERS: PCP Family Medicine Geriatric Medicine; Referring Provider Family Medicine Geriatric Medicine; Visit Provider Family Medicine Geriatric Medicine
DX: K76.0 Fatty (change of) liver, not elsewhere classified (principal)
CPT/HCPCS: 76705; 76981

== ENCOUNTER 2021-05-30 14:34 | Outpatient (CLI) | payer OTHER, SELFPAY ==
[2021-05-30 17:29] LABS: Anion Gap 6 (5-15); BUN 16 mg/dL (7-18); BUN/Creat Ratio 12.6 RATIO (10-20); Calcium,Total 9.2 mg/dL (8.5-10.1); Chloride 105 mmol/L (98-107); Creatinine, Serum 1.27 mg/dL (0.70-1.30); EST Glomerular Filtration Rate 63 mL/min (>60); Est Glom Filt Rate - Afr Amer 76 mL/min (>60); Glucose 103 mg/dL (74-106); Potassium 4.5 mmol/L (3.5-5.1); Sodium Level 140 mmol/L (136-145)
== END 2021-05-30 23:59 | disposition short-term general hospital (02) ==
LOC: POLAB3 14:35
PROVIDERS: PCP Family Medicine Geriatric Medicine; Visit Provider Family Medicine Geriatric Medicine
DX: N18.31 Chronic kidney disease, stage 3a (principal)
CPT/HCPCS: 36415; 80048

== ENCOUNTER 2021-06-08 10:30 | Outpatient (CLI) | payer OTHER, SELFPAY ==
[2021-06-08 12:20] LABS: BUN 16 mg/dL (7-18); BUN/Creat Ratio 13.3 RATIO (10-20); Calcium,Total 8.9 mg/dL (8.5-10.1); Chloride 104 mmol/L (98-107); EST Glomerular Filtration Rate 67 mL/min (>60); Est Glom Filt Rate - Afr Amer 81 mL/min (>60); Glucose 102 mg/dL (74-106); Potassium 4.1 mmol/L (3.5-5.1); Sodium Level 139 mmol/L (136-145)
== END 2021-06-08 23:59 | disposition short-term general hospital (02) ==
LOC: POLAB3 10:31
PROVIDERS: PCP Family Medicine Geriatric Medicine; Visit Provider Internal Medicine Nephrology
DX: N17.9 Acute kidney failure, unspecified (principal); N18.31 Chronic kidney disease, stage 3a
CPT/HCPCS: 36415; 80069

== ENCOUNTER 2021-07-06 11:00 | Outpatient (CLI) | payer OTHER, SELFPAY ==
[2021-07-06 12:37] LABS: Albumin, Serum 3.6 g/dL (3.2-5.0); BUN 15 mg/dL (7-18); BUN/Creat Ratio 11.8 RATIO (10-20); Calcium,Total 8.6 mg/dL (8.5-10.1); Chloride 108 mmol/L (98-107); Creatinine, Serum 1.27 mg/dL (0.70-1.30); EST Glomerular Filtration Rate 63 mL/min (>60); Est Glom Filt Rate - Afr Amer 76 mL/min (>60); Glucose 164 mg/dL (74-106); Phosphorus 1.2 mg/dL (2.5-4.9); Potassium 3.9 mmol/L (3.5-5.1); Sodium Level 140 mmol/L (136-145)
== END 2021-07-06 23:59 | disposition home or self-care (01) ==
PROVIDERS: PCP Family Medicine Geriatric Medicine; Visit Provider Internal Medicine Nephrology
DX: N17.9 Acute kidney failure, unspecified (principal); N18.31 Chronic kidney disease, stage 3a
CPT/HCPCS: 36415; 80069

== ENCOUNTER 2021-09-04 16:55 | Outpatient (CLI) | payer OTHER, SELFPAY ==
--- NOTE | 2021-09-04 17:07 | RAD_ITS ---
STUDY: X-RAY - RIGHT ANKLE REASON FOR EXAM: Male, 55 years old. Ankle pain. TECHNIQUE: 3 view(s) of the ankle. COMPARISON: None. FINDINGS: Normal visualized distal tibia and fibula. Normal medial and lateral malleoli. Normal tibiotalar articulation and ankle mortise. Normal visualized talus and calcaneus. The visualized subtalar, talonavicular, calcaneocuboid and tarsal articulations are normal. The soft tissue structures are unremarkable. RAD/Ankle min 3 Views IMPRESSION: Normal x-ray examination of the ankle. Electronically Signed: Ishmael Dias MD at 9:58 EDT ,
== END 2021-09-04 23:59 | disposition home or self-care (01) ==
LOC: RAD 17:02
PROVIDERS: PCP Family Medicine Geriatric Medicine; Referring Provider Family Medicine Geriatric Medicine; Visit Provider Family Medicine Geriatric Medicine
DX: M25.571 Pain in right ankle and joints of right foot (principal)
CPT/HCPCS: 73610

== ENCOUNTER → 2021-11-01 | Outpatient (CLI) | payer OTHER, SELFPAY ==
[2021-11-01 12:13] LABS: Absolute Neutrophil Count 4.5 X10^3/uL (2.0-7.7); Basophil% 1.3 % (0-1); Eosinophil# 0.34 X10^3/uL; Eosinophils% 4.6 % (0-5); Hematocrit 46.9 % (40-54); Hemoglobin 15.4 g/dL (13.0-16.5); Lymphocyte % 24.2 % (19-41); Mean Corp Hgb Conc 32.8 g/dL (32-36); Mean Corpuscular Volume 94.6 fL (80-94); Mean Platelet Vol. 10.4 fl (6.2-12.0); Monocyte# 0.73 X10^3/uL; Monocyte% 9.8 % (0-10); NRBC Flagged by Analyzer 0 % (0-5); Neutrophil # 4.46 X10^3/uL (2.7-7.7); Neutrophil % 59.8 % (47-70); Platelet Count 307 K/mm3 (150-450); RBC Distribution Width CV 13.5 % (11.6-14.6); RBC Distribution Width SD 46.9 fl (35.1-43.9); Red Blood Count 4.96 M/mm3 (4.6-6.2); White Blood Count 7.5 K/mm3 (4.4-11.0)
[2021-11-01 13:00] LABS: ALB/GLOB Ratio 1.2 RATIO (0.9-2.4); AST(SGOT) 27 U/L (15-37); Alanine Aminotransfer ALT/SGPT 54 U/L (16-61); Albumin, Serum 3.9 g/dL (3.2-5.0); Alkaline Phosphatase 84 U/L (45-117); Anion Gap 6 (5-15); BUN 15 mg/dL (7-18); BUN/Creat Ratio 10.4 RATIO (10-20); Chloride 104 mmol/L (98-107); Creatinine, Serum 1.44 mg/dL (0.70-1.30); EST Glomerular Filtration Rate 54 mL/min (>60); Est Glom Filt Rate - Afr Amer 66 mL/min (>60); Globulin 3.2 g/dL (2.2-4.2); Glucose 102 mg/dL (74-106); PSA,Total - Annual Screen 0.42 ng/mL (0.00-4.00); Potassium 4.4 mmol/L (3.5-5.1); Protein, Total 7.1 g/dL (6.4-8.2); Sodium Level 137 mmol/L (136-145); Thyroid Stim Hormone (TSH) 1.15 uIU/mL (0.358-3.74)
== END | disposition home or self-care (01) ==
LOC: POLAB3 11:03
PROVIDERS: PCP Family Medicine Geriatric Medicine; Visit Provider Family Medicine Geriatric Medicine
DX: E23.6 Other disorders of pituitary gland (principal); R53.83 Other fatigue; Z12.5 Encounter for screening for malignant neoplasm of prostate
CPT/HCPCS: 36415; 80053; 84153; 84403; 84443; 85025; G0103

== ENCOUNTER → 2021-12-05 | Outpatient (CLI) | payer OTHER, SELFPAY ==
--- NOTE | 2021-12-05 09:54 | ART_ITS ---
Reason For Study: Ankle Pain Procedure A bilateral lower extremity continuous wave Doppler with analog waveform analysis and ankle brachial indexes. Left Segmental Pressures Left brachial= 132mmHg. Left posterior tibial artery = 151mmHg. Left dorsalis pedis artery = 145mmHg. Right Segmental Pressures Right brachial= 134mmHg. Right posterior tibial artery = 162mmHg. Right dorsalis pedis artery = 155mmHg. Indices The right ankle brachial index by the posterior tibial artery is 1.21. The right ankle brachial index by the dorsalis pedis is 1.16. The left ankle brachial index by the posterior tibial artery is 1.13. The left ankle brachial index by the dorsalis pedis is 1.08. VL/Ankle Brachial Index Interpretation Summary Right MELANIE 1.21, normal. Doppler/PVR waveforms of the right leg normal at rest. Left MELANIE 1.13, normal. Doppler/PVR waveforms of the left leg normal at rest. Ordering Physician: Robbi Turner Referring Physician: Robbi Turner Chi Performed By: Stephanie Willson RDCS/RVT
--- NOTE | 2021-12-05 11:10 | MRI_ITS ---
STUDY: MRI RIGHT ANKLE WITHOUT CONTRAST REASON FOR EXAM: Right ankle pain, twisting injury of the right ankle 3 months ago. TECHNIQUE: Standardized fat and water weighted pulse sequences were obtained in all 3 orthogonal planes. COMPARISON: Radiographs 09/04/2021. FINDINGS: Normal subcutis adipose space. Normal posterior tibialis tendon. Normal flexor digitorum longus tendon. Normal flexor hallucis longus tendon. Normal peroneus longus and brevis tendons. Normal tibialis anterior tendon. Normal extensor hallucis longus tendon. Normal extensor digitorum longus tendons. Normal Achilles tendon and teno-osseous insertion. Normal plantar fascia. Normal plantar calcaneal tubercles. Normal intrinsic muscles of the rearfoot. Normal distal tibiofibular syndesmotic ligamentous complex. There is attenuation of the anterior talofibular ligament (T2 axial image 15) consistent with partial tear. Normal calcaneofibular and posterior talofibular ligaments. Normal subtalar ligaments and sinus tarsi. There is a mild sprain of the deltoid ligament (T2 coronal images 14, 15). Normal plantar calcaneonavicular (spring) ligament. Normal tibiotalar articulation. Normal talar dome. Normal subtalar articulations. Normal talonavicular articulation. Normal calcaneocuboid articulation. Normal navicular-cuneiform articulations. MRI/Lower Ext Joint Only (Routine) IMPRESSION: Partial tear of the anterior talofibular ligament. Mild sprain of the deltoid ligament. Electronically Signed: Semaj Leigh MD at 13:09 EDT ,
== END | disposition home or self-care (01) ==
PROVIDERS: PCP Family Medicine Geriatric Medicine; Referring Provider Family Medicine Geriatric Medicine; Visit Provider Family Medicine Geriatric Medicine
DX: M25.571 Pain in right ankle and joints of right foot (principal)
CPT/HCPCS: 73721; 93922

== ENCOUNTER → 2021-12-07 | Outpatient (CLI) | payer OTHER, SELFPAY ==
--- NOTE | 2021-12-07 11:46 | CT_ITS ---
STUDY: CT BRAIN WITHOUT CONTRAST REASON FOR EXAM: Male, 56 years old. LIGHTHEADED for one month. History of hypertension. RADIATION DOSAGE (If Supplied By Facility): CTDIvol = ( 47.06 ) mGy, DLP = ( 872.68 ) mGycm TECHNIQUE: Transaxial CT imaging of the brain was performed without administration of intravenous contrast material. Individualized dose optimization techniques were used for this CT. COMPARISON: No relevant priors. FINDINGS: Normal soft tissue structures. Normal calvarium. Normal size ventricles and extra-axial spaces for the patient''s age. Normal white matter tracts of the cerebral hemispheres. Normal basal ganglia and thalami. Normal brainstem. Normal cerebellum. There is no intracranial hemorrhage. There are no findings of an acute ischemic infarction. Normal visualized paranasal sinuses. CT/Brain/Head without Contrast IMPRESSION: Normal unenhanced CT scan of the brain. Electronically Signed: Nabeel Herr MD at 12:52 EDT ,
[2021-12-07 12:40] LABS: Absolute Lymphocyte Count 0.87 X10^3/uL (0.83-4.51); Absolute Neutrophil Count 6.4 X10^3/uL (2.0-7.7); Basophil# 0.09 X10^3/uL; Basophil% 1.1 % (0-1); Eosinophil# 0.17 X10^3/uL; Eosinophils% 2.2 % (0-5); Hemoglobin 14.8 g/dL (13.0-16.5); Lymphocyte # 0.87 X10^3/ul (0.83-4.51); Lymphocyte % 11.1 % (19-41); Mean Corp Hgb Conc 32.9 g/dL (32-36); Mean Corpuscular Hgb 31.1 pg (27.0-32.0); Mean Corpuscular Volume 94.5 fL (80-94); Mean Platelet Vol. 10.4 fl (6.2-12.0); Monocyte# 0.22 X10^3/uL; Monocyte% 2.8 % (0-10); NRBC Flagged by Analyzer 0 % (0-5); Neutrophil # 6.37 X10^3/uL (2.7-7.7); Platelet Count 302 K/mm3 (150-450); RBC Distribution Width CV 13.3 % (11.6-14.6); RBC Distribution Width SD 45.8 fl (35.1-43.9); Red Blood Count 4.76 M/mm3 (4.6-6.2); White Blood Count 7.9 K/mm3 (4.4-11.0)
[2021-12-07 13:12] LABS: Anion Gap 5 (5-15); BUN 19 mg/dL (7-18); BUN/Creat Ratio 13.4 RATIO (10-20); Calcium,Total 9.2 mg/dL (8.5-10.1); Chloride 106 mmol/L (98-107); Creatinine, Serum 1.42 mg/dL (0.70-1.30); EST Glomerular Filtration Rate 55 mL/min (>60); Est Glom Filt Rate - Afr Amer 67 mL/min (>60); Glucose 150 mg/dL (74-106); Potassium 4.5 mmol/L (3.5-5.1); Sodium Level 138 mmol/L (136-145)
== END | disposition home or self-care (01) ==
LOC: CT 11:44
PROVIDERS: PCP Family Medicine Geriatric Medicine; Visit Provider Family Medicine Geriatric Medicine
DX: R42 Dizziness and giddiness (principal); N39.0 Urinary tract infection, site not specified
CPT/HCPCS: 36415; 70450; 80048; 85025; 87086

== ENCOUNTER → 2022-04-03 | Outpatient (CLI) | payer OTHER, SELFPAY ==
[2022-04-03 14:30] LABS: Albumin, Serum 3.9 g/dL (3.2-5.0); BUN 17 mg/dL (7-18); BUN/Creat Ratio 13.1 RATIO (10-20); Calcium,Total 8.7 mg/dL (8.5-10.1); Chloride 104 mmol/L (98-107); EST Glomerular Filtration Rate 61 mL/min (>60); Est Glom Filt Rate - Afr Amer 74 mL/min (>60); Glucose 94 mg/dL (74-106); Phosphorus 2.2 mg/dL (2.5-4.9); Potassium 4.1 mmol/L (3.5-5.1); Sodium Level 139 mmol/L (136-145)
== END | disposition home or self-care (01) ==
PROVIDERS: PCP Family Medicine Geriatric Medicine; Visit Provider Internal Medicine Nephrology
DX: N18.2 Chronic kidney disease, stage 2 (mild) (principal)
CPT/HCPCS: 36415; 80069

== ENCOUNTER → 2022-04-16 | Outpatient (CLI) | payer OTHER, SELFPAY | END | disposition home or self-care (01) | PROVIDERS: PCP Family Medicine Geriatric Medicine; Referring Provider Family Medicine Geriatric Medicine; Visit Provider Family Medicine Geriatric Medicine | DX: R68.83 Chills (without fever) (principal) | CPT/HCPCS: 87635; 87804; 87807; C9803; U0003; U0005 ==

== ENCOUNTER → 2022-05-02 | Outpatient (CLI) | payer OTHER, SELFPAY ==
[2022-05-02 13:28] LABS: Absolute Lymphocyte Count 1.32 X10^3/uL (0.83-4.51); Basophil# 0.06 X10^3/uL; Eosinophil# 0.58 X10^3/uL; Eosinophils% 10.1 % (0-5); Hematocrit 48.7 % (40-54); Hemoglobin 15.6 g/dL (13.0-16.5); Lymphocyte # 1.32 X10^3/ul (0.83-4.51); Mean Corpuscular Hgb 29.7 pg (27.0-32.0); Mean Corpuscular Volume 92.8 fL (80-94); Mean Platelet Vol. 10.7 fl (6.2-12.0); Monocyte# 0.78 X10^3/uL; Monocyte% 13.6 % (0-10); NRBC Flagged by Analyzer 0 % (0-5); Neutrophil # 2.99 X10^3/uL (2.7-7.7); Neutrophil % 52.1 % (47-70); Platelet Count 267 K/mm3 (150-450); RBC Distribution Width CV 13.9 % (11.6-14.6); RBC Distribution Width SD 47.5 fl (35.1-43.9); Red Blood Count 5.25 M/mm3 (4.6-6.2); White Blood Count 5.7 K/mm3 (4.4-11.0)
[2022-05-02 13:48] LABS: ALB/GLOB Ratio 1.2 RATIO (0.9-2.4); AST(SGOT) 28 U/L (15-37); Alanine Aminotransfer ALT/SGPT 63 U/L (16-61); Albumin, Serum 3.9 g/dL (3.2-5.0); Alkaline Phosphatase 100 U/L (45-117); Anion Gap 6 (5-15); BUN 13 mg/dL (7-18); BUN/Creat Ratio 9.8 RATIO (10-20); Calcium,Total 8.8 mg/dL (8.5-10.1); Chloride 106 mmol/L (98-107); Creatinine, Serum 1.32 mg/dL (0.70-1.30); EST Glomerular Filtration Rate 60 mL/min (>60); Est Glom Filt Rate - Afr Amer 72 mL/min (>60); Globulin 3.2 g/dL (2.2-4.2); Glucose 132 mg/dL (74-106); Potassium 3.8 mmol/L (3.5-5.1); Protein, Total 7.1 g/dL (6.4-8.2); Sodium Level 141 mmol/L (136-145); Thyroid Stim Hormone (TSH) 7.93 uIU/mL (0.358-3.74)
== END | disposition home or self-care (01) ==
LOC: POLAB3 09:12
PROVIDERS: PCP Family Medicine Geriatric Medicine; Visit Provider Family Medicine Geriatric Medicine
DX: I10 Essential (primary) hypertension (principal)
CPT/HCPCS: 36415; 80053; 84443; 85025

== ENCOUNTER → 2022-06-27 | Outpatient (CLI) | payer OTHER, SELFPAY ==
[2022-06-27 18:01] LABS: Thyroid Stim Hormone (TSH) 2.23 uIU/mL (0.358-3.74)
== END | disposition home or self-care (01) ==
LOC: POLAB3 14:15
PROVIDERS: PCP Family Medicine Geriatric Medicine; Visit Provider Family Medicine Geriatric Medicine
DX: E03.9 Hypothyroidism, unspecified (principal)
CPT/HCPCS: 36415; 84443

== ENCOUNTER → 2022-10-23 | Outpatient (CLI) | payer OTHER, SELFPAY ==
[2022-10-23 10:36] LABS: Absolute Lymphocyte Count 1.93 X10^3/uL (0.83-4.51); Absolute Neutrophil Count 3.8 X10^3/uL (2.0-7.7); Basophil# 0.07 X10^3/uL; Eosinophil# 0.64 X10^3/uL; Eosinophils% 9.2 % (0-5); Hematocrit 46.4 % (40-54); Hemoglobin 15.3 g/dL (13.0-16.5); Lymphocyte # 1.93 X10^3/ul (0.83-4.51); Lymphocyte % 27.8 % (19-41); Mean Corpuscular Hgb 30.7 pg (27.0-32.0); Mean Platelet Vol. 10.1 fl (6.2-12.0); Monocyte# 0.49 X10^3/uL; Monocyte% 7.1 % (0-10); NRBC Flagged by Analyzer 0 % (0-5); Neutrophil # 3.81 X10^3/uL (2.7-7.7); Neutrophil % 54.8 % (47-70); Platelet Count 301 K/mm3 (150-450); RBC Distribution Width CV 13.4 % (11.6-14.6); Red Blood Count 4.99 M/mm3 (4.6-6.2)
[2022-10-23 11:48] LABS: Albumin, Serum 3.8 g/dL (3.2-5.0); BUN 16 mg/dL (7-18); BUN/Creat Ratio 12.6 RATIO (10-20); Calcium,Total 9.1 mg/dL (8.5-10.1); Chloride 104 mmol/L (98-107); Creatinine, Serum 1.27 mg/dL (0.70-1.30); EST Glomerular Filtration Rate 62 mL/min (>60); Est Glom Filt Rate - Afr Amer 75 mL/min (>60); Glucose 143 mg/dL (74-106); PSA,Total - Annual Screen 0.54 ng/mL (0.00-4.00); Phosphorus 1.6 mg/dL (2.5-4.9); Potassium 3.8 mmol/L (3.5-5.1); Sodium Level 138 mmol/L (136-145); Thyroid Stim Hormone (TSH) 3.93 uIU/mL (0.358-3.74)
== END | disposition home or self-care (01) ==
LOC: POLAB3 09:30
PROVIDERS: PCP Family Medicine Geriatric Medicine; Visit Provider Internal Medicine Nephrology
DX: R53.83 Other fatigue (principal); N18.2 Chronic kidney disease, stage 2 (mild)
CPT/HCPCS: 36415; 80069; 84153; 84443; 85025; G0103

== ENCOUNTER → 2023-02-13 | Outpatient (CLI) | payer OTHER, SELFPAY | END | disposition home or self-care (01) | LOC: PSN 11:09 | PROVIDERS: PCP Family Medicine Geriatric Medicine; Referring Provider Family Medicine Geriatric Medicine; Visit Provider Family Medicine Geriatric Medicine | DX: R68.83 Chills (without fever) (principal) | CPT/HCPCS: 87635; 87804; 87807; C9803 ==

== ENCOUNTER → 2023-02-27 | Outpatient (CLI) | payer OTHER, SELFPAY | END | disposition home or self-care (01) | PROVIDERS: PCP Family Medicine Geriatric Medicine; Referring Provider Family Medicine Geriatric Medicine; Visit Provider Family Medicine Geriatric Medicine | DX: R68.83 Chills (without fever) (principal) | CPT/HCPCS: 87635; 87804; 87807 ==

== ENCOUNTER → 2023-05-09 | Outpatient (CLI) | payer OTHER, SELFPAY ==
[2023-05-09 10:54] LABS: Absolute Lymphocyte Count 2.09 X10^3/uL (0.83-4.51); Absolute Neutrophil Count 5.3 X10^3/uL (2.0-7.7); Basophil# 0.15 X10^3/uL; Basophil% 1.7 % (0-1); Eosinophil# 0.58 X10^3/uL; Eosinophils% 6.6 % (0-5); Hematocrit 47.7 % (40-54); Hemoglobin 15.5 g/dL (13.0-16.5); Lymphocyte # 2.09 X10^3/ul (0.83-4.51); Lymphocyte % 23.8 % (19-41); Mean Corp Hgb Conc 32.5 g/dL (32-36); Mean Corpuscular Hgb 30.3 pg (27.0-32.0); Mean Corpuscular Volume 93.3 fL (80-94); Mean Platelet Vol. 10.2 fl (6.2-12.0); Monocyte# 0.68 X10^3/uL; Monocyte% 7.7 % (0-10); NRBC Flagged by Analyzer 0 % (0-5); Neutrophil # 5.27 X10^3/uL (2.7-7.7); Platelet Count 320 K/mm3 (150-450); RBC Distribution Width CV 13.5 % (11.6-14.6); RBC Distribution Width SD 46.5 fl (35.1-43.9); Red Blood Count 5.11 M/mm3 (4.6-6.2); White Blood Count 8.8 K/mm3 (4.4-11.0)
[2023-05-09 11:17] LABS: ALB/GLOB Ratio 1.2 RATIO (0.9-2.4); AST(SGOT) 21 U/L (15-37); Alanine Aminotransfer ALT/SGPT 46 U/L (16-61); Alkaline Phosphatase 102 U/L (45-117); Anion Gap 6 (5-15); BUN 15 mg/dL (7-18); BUN/Creat Ratio 11.1 RATIO (10-20); Calcium,Total 8.9 mg/dL (8.5-10.1); Chloride 107 mmol/L (98-107); Creatinine, Serum 1.35 mg/dL (0.70-1.30); EST Glomerular Filtration Rate 58 mL/min (>60); Est Glom Filt Rate - Afr Amer 70 mL/min (>60); Globulin 3.4 g/dL (2.2-4.2); Glucose 113 mg/dL (74-106); Potassium 4.1 mmol/L (3.5-5.1); Protein, Total 7.4 g/dL (6.4-8.2); Sodium Level 142 mmol/L (136-145); Thyroid Stim Hormone (TSH) 0.39 uIU/mL (0.358-3.74)
== END | disposition home or self-care (01) ==
LOC: POLAB3 09:41
PROVIDERS: PCP Family Medicine Geriatric Medicine; Visit Provider Family Medicine Geriatric Medicine
DX: I10 Essential (primary) hypertension (principal)
CPT/HCPCS: 36415; 80053; 84443; 85025

== ENCOUNTER → 2023-07-29 | Outpatient (CLI) | payer OTHER, SELFPAY ==
--- OUTSIDE RECORDS SUMMARY | 2023-07-29 06:35 | XMS RPT_ITS | CCD ---
Author Name Unknown Address [address] [place] [address] Organization [facility] Care Team Providers Care Completions Engineer Name Role Phone Med Chand Unavailable Unavailable Med Chand Unavailable Unavailable Robbi Santizo Chi Unavailable Unavailable Jolly MATHEWS, Roby Agarwal Unavailable Norman Santizo MD Primary Care Provider LOGAN GRIFFIN Attending Unavailable NORMAN SANTIZO Primary Care Unavailable Medications Current Medications Medication Drug Class(es) Dates Sig (Normalized) Sig (Original) oxygen (O2) therapy (1 source) Start: 07-14-2023 oxygen (O2) therapy Completed/Discontinued Medications Medication Drug Class(es) Dates Sig (Normalized) Sig (Original) baclofen 10 mg oral tablet (1 source) gamma-Aminobutyric Acid-ergic Agonist Start: 08-09-2019 BACLOFEN 10 MG TABS one tablet daily BACLOFEN [id number] Rosa Maria Ferguson CABLE SPLICER ASSISTANT diclofenac sodium 25 mg delayed release oral tablet (1 source) Nonsteroidal Anti-inflammatory Drug Start: 08-09-2019 DICLOFENAC SODIUM 25 MG TBEC one tablet twice daily DICLOFENAC SODIUM [id number] Rosa Maria Ferguson CABLE SPLICER ASSISTANT furosemide 20 mg oral tablet (1 source) Loop Diuretic Start: 08-09-2019 LASIX 20 MG TABS one tablet daily FUROSEMIDE [id number] Rosa Maria Ferguson CABLE SPLICER ASSISTANT predniSONE 10 mg oral tablet (1 source) Start: 08-09-2019 PREDNISONE 10 MG TABS titer as prescribed by family physician PREDNISONE [id number] Rosa Maria Ferguson CABLE SPLICER ASSISTANT 1000 ml sodium chloride 9 mg/ml injection (1 source) Start: 07-14-2023 End: 07-14-2023 sodium chloride 0.9 % bolus 1,000 mL Problems Active Problems Problem Classification Problem Date Documented Da te Episodic/Chronic Fluid and electrolyte disorders (3 sources) Hypovolemia; Translations: [Volume depletion, unspecified] Onset: 07-14-2023 07-14-2023 Episodic Other connective tissue disease (1 source) Palmar fascial fibromatosis [Dupuytren]; Translations: [Palmar fascial fibromatosis [Dupuytren]] Onset: 08-21-2019 08-21-2019 Episodic Syncope (3 sources) Syncope; Translations: [Syncope and collapse] Onset: 07-14-2023 07-14-2023 Episodic Past or Other Problems Problem Classification Problem Date Documented Da te Episodic/Chronic Unclassified (1 source) Problem Results Test Name Value Interpretation Reference Range Facil ity Vital Signs Date Time Vital Sign Value Performing Clinician Facility 07-14-2023 14:30-0500 Diastolic blood pressure 82 mm[Hg] Logan Griffin DO Work Phone: [facility] 07-14-2023 14:30-0500 Heart rate 79 /min Logan Griffin DO Work Phone: [facility] 07-14-2023 14:30-0500 Respiratory rate 15 /min Logan Abernathyservando DO Work Phone: [facility] 07-14-2023 14:30-0500 SaO2% (BldA) [Mass fraction] 96 % Logan Griffin DO Work Phone: [facility] 07-14-2023 14:30-0500 Systolic blood pressure 123 mm[Hg] Logan Griffin DO Work Phone: [facility] 07-14-2023 12:00-0500 Body height 193 cm Logan Griffin DO Work Phone: [facility] 07-14-2023 12:00-0500 Body mass index (BMI) [Ratio] 33.47 kg/m2 Logan Griffin DO Work Phone: [facility] 07-14-2023 12:00-0500 Body temperature 97.39 [degF] Logan Abernathyservando DO Work Phone: [facility] 07-14-2023 12:00-0500 Body weight 124.74 kg Logansukhjinder Griffin DO Work Phone: [facility] NEGATED: Highlighted [id number] 12:23-0400 BMI (Body Mass Index) 34.21 kg/m2 Balaji García [facility] Work Phone: NEGATED: Highlighted [id number] 12:23-0400 Body weight 127.01 kg Balaji [facility] Work Phone: NEGATED: Highlighted [id number] 12:23-0400 Body weight 127 kg [facility] Work Phone: NEGATED: Highlighted [id number] 12:23-0400 Height 193.04 cm Balaji García [facility] Work Phone: NEGATED: Highlighted [id number] 12:23-0400 Height 193 cm Balaji García [facility] Work Phone: Encounters Encounter Date Encounter Type Care Provider Facility Start: 07-14-2023 End: 07-14-2023 Emergency department patient visit LOGAN GRIFFIN [facility] Start: 07-14-2023 End: 07-14-2023 Emergency department patient visit Logan Griffin DO Work Phone: [facility] Emergency Medicine Procedures Date Procedure Procedure Detail Performing Clinician Start: 07-14-2023 ECG 12-LEAD LOGAN KERNS Start: 07-14-2023 EXTRA URINE PHIPPS TUBE C AMCHANA GRIFFIN Start: 07-14-2023 URINALYSIS MICROSCOP IC WITH REFLEX CULTURE LOGAN GRIFFIN Start: 07-14-2023 URINALYSIS WITH REFL EX CULTURE AND MICROSCOPIC LOGAN GRIFFIN Start: 07-14-2023 CT HEAD WO IV CONTRAST LOGAN GRIFFIN Start: 07-14-2023 Ecg routine ecg w/le ast 12 lds trcg only w/o i&r Logan Griffin DO Work Phone: Start: 07-14-2023 XR CHEST 1 VIEW LOGAN GRIFFIN Start: 07-14-2023 INFLUENZA A AND B PCR C AMEROSukhjinder GRIFFIN Start: 07-14-2023 SARS-COV-2 PCR LOGAN GRIFFIN Start: 07-14-2023 CBC W Auto Different ial panel - Blood LOGAN GRIFFIN Start: 07-14-2023 Comprehensive metabo lic 2000 panel - Serum or Plasma LOGAN GRIFFIN Start: 07-14-2023 TROPONIN I, HIGH SENSITIVITY LOGAN GRIFFIN Start: 07-14-2023 Urinalysis complete W Reflex Culture panel - Urine Logan Griffin DO Work Phone: Start: 07-14-2023 Urnls dip stick/tabl et reagent auto microscopy Logan Griffin DO Work Phone: Start: 07-14-2023 INITIATE DROPLET PLU S ISOLATION LOGAN GRIFFIN Start: 07-14-2023 Ct head/brain w/o contrast material Logan Griffin DO Work Phone: Start: 07-14-2023 Radiologic exam ches t single view Logan Griffin DO Work Phone: Start: 07-14-2023 Influenza virus A an d B RNA [Identifier] in Unspecified specimen by COSTA with probe detection Logan Griffin DO Work Phone: Start: 07-14-2023 SARS-CoV-2 (COVID-19 ) RNA [Presence] in Respiratory specimen by COSTA with probe detection Logan Griffin DO Work Phone: Start: 07-14-2023 Comprehensive metabo lic panel Logan Griffin DO Work Phone: Start: 08-19-2019 End: 08-21-2019 Blood pressure screening not performed - reason not given Roby Azevedo MD Work Phone: Start: 08-19-2019 End: 08-21-2019 BMI outside of normal parameters - no follow-up plan/reason not given Roby Azevedo MD Work Phone: Start: 08-19-2019 End: 08-21-2019 Documentation of current medications Roby Azevedo MD Work Phone: Start: 08-19-2019 End: 08-21-2019 Pain assessment documented as negative - follow-up not required Roby Azevedo MD Work Phone: Start: 08-19-2019 End: 08-21-2019 Tobacco non-user Roby Azevedo MD Work Phone: NEGATED: Highlighted rowStart: 08-19-2019 End: 08-19-2019 Documentation of current medications Balaji García LPN Plan of Treatment Date Care Activity Detail Author Start: 01-24-2023 COVID-19 Vaccine () COVID-19 Vaccine ( season) [facility] Start: 1988 DTaP/Tdap/Td Vaccine s (1 - Tdap) DTaP/Tdap/Td Vaccines (1 - Tdap) [facility] Start: 1984 Hepatitis C screening Hepatitis C Sc reening [facility] Start: 09-23-1967 MMR Vaccines (1 of 1 - Standard series) MMR Vaccines (1 of 1 - Standard series) [facility] Start: 1966 Hepatitis B Vaccines (1 of 3 - 3-dose series) Hepatitis B Vaccines (1 of 3 - 3-dose series) [facility] Start: 1966 HIV screening HIV Screening [facility] Start: 1966 Lipid panel Lipid Panel [facility] Start: 1966 Screening for malignant neoplasm of colon [facility] Start: 1966 Yearly Adult Physical Yearly Adult P hysical [facility] ECG 12 lead ECG 12 lead ECG STAT 07/14/2023 2:47 PM EST [facility] Work Phone: End: 07-14-2023 Extra Urine Phipps Tube [facility] Work Phone: Payers Date Payer Category Payer Unknown [id number] 2017 Unknown 1965 Unknown [id number] Social History Date Type Detail Facility Tobacco smoking status NHIS Tobacco smoking consumption unknown [facility] Work Phone: Start: 1965 Sex Assigned At Not on file [facility] Work Phone: [facility] identity [facility] Work Phone: Start: 07-04-2023 End: 07-14-2023 Exposure to SARS-CoV-2 (event) Not sure [facility] Work Phone: NEGATED: Highlighted rowStart: 08-19-2019 End: 08-19-2019 Alcohol use Alcohol use [facility] Work Phone: NEGATED: Highlighted rowStart: 08-19-2019 End: 08-19-2019 Details of drug misuse behavior Details of drug misuse behavior [facility] Work Phone: NEGATED: Highlighted rowStart: 08-19-2019 End: 08-19-2019 How many days of moderate to strenuous exercise, like a brisk walk, did you do in the last 7 days? How many days of moderate to strenuous exercise, like a brisk walk, did you do in the last 7 days? [facility] Work Phone: NEGATED: Highlighted rowStart: 08-19-2019 End: 08-19-2019 Assertion Never smoker [facility] Work Phone: Emergency department Note 07-14-2023 Logan Griffin, - 07/14/2023 11:56 AM EST Note Date & Type Note Facility 07-14-2023 Emergency department Note Associated Order(s): ECG 12 lead HPI Chief Complaint Patient presents with Syncope Brought to ED per [employer] squad after syncopal episode at [employer] while sitting at a table. He denies any pain or SOB before the episode or now. He is diaphoretic and tired. He did not hit his head or fall to ground. No injuries from episode. EKG done at Limitations to History: None HPI: 57-year-old male presents with concern for syncopal episode while at [employer]. Was seated. States he was feeling unwell somewhat while going to the restaurant. Did state that he had nausea as well as dizziness prior. Denies any headache, vision change, neck pain, chest pain, shortness of breath, abdominal pain, urinary symptoms. Additional History Obtained from: EMS Physical Exam: VS: As documented in the triage note and EMR flowsheet from this visit were reviewed. Appearance: Alert. cooperative, in no acute distress. Skin: Intact, dry skin, no lesions, rash, petechiae or purpura. Eyes: PERRLA, EOMs intact, Conjunctiva pink with no redness or exudates. HENT: Normocephalic, atraumatic. Nares patent. No intraoral lesions. Neck: Supple, without meningismus. Trachea at midline. No lymphadenopathy. Pulmonary: Clear bilaterally with good chest wall excursion. No rales, rhonchi or wheezing. No accessory muscle use or stridor. Cardiac: Regular rate and rhythm, no rubs, murmurs, or gallops. Abdomen: Abdomen is soft, nontender, and nondistended. No palpable organomegaly. No rebound or guarding. No CVA tenderness. Nonsurgical abdomen. Genitourinary: Exam deferred. Musculoskeletal: Full range of motion. Pulses full and equal. No cyanosis, clubbing, or edema. Neurological: Cranial nerves are grossly intact, grossly normal sensation, no weakness, no focal findings identified. Psychiatric: Appropriate mood and affect. Peterson Coma Scale Score: 15 Patient History No past medical history on file. No past surgical history on file. No family history on file. Social History Tobacco Use Smoking status: Not on file Smokeless tobacco: Not on file Substance Use Topics Alcohol use: Not on file Drug use: Not on file Physical Exam ED Triage Vitals [07/14/23 1200] Temperature Heart Rate Respirations BP 36.3 C (97.4 F) 86 18 115/74 Pulse Ox Temp src Heart Rate Source Patient Position (!) 92 % -- -- -- BP Location FiO2 (%) -- -- Physical Exam ED Course & MDM Diagnoses as of 07/14/23 1444 Syncope, unspecified syncope type Volume depletion Medical Decision Making Labs Reviewed CBC WITH AUTO DIFFERENTIAL - Abnormal WBC 8.1 nRBC 0.0 RBC 4.87 Hemoglobin 15.1 Hematocrit 45.4 MCV 93 MCH 31.0 MCHC 33.3 RDW 13.1 Platelets 314 Neutrophils % 46.5 Immature Granulocytes %, Automated 0.1 Lymphocytes % 35.2 Monocytes % 8.9 Eosinophils % 7.7 Basophils % 1.6 Neutrophils Absolute 3.74 Immature Granulocytes Absolute, Au* 0.01 Lymphocytes Absolute 2.84 Monocytes Absolute 0.72 Eosinophils Absolute 0.62 Basophils Absolute 0.13 (*) COMPREHENSIVE METABOLIC PANEL - Abnormal Glucose 167 (*) Sodium 139 Potassium 3.6 Chloride 106 Bicarbonate 24 Anion Gap 13 Urea Nitrogen 14 Creatinine 1.15 eGFR 75 Calcium 9.3 Albumin 4.0 Alkaline Phosphatase 95 Total Protein 6.2 (*) AST 19 Bilirubin, Total 0.5 ALT 38 URINALYSIS WITH REFLEX CULTURE AND MICROSCOPIC - Abnormal Color, Urine Yellow Appearance, Urine Hazy (*) Specific [place], Urine 1.019 pH, Urine 5.0 Protein, Urine 100 (2+) (*) Glucose, Urine NEGATIVE Blood, Urine NEGATIVE Ketones, Urine 20 (1+) (*) Bilirubin, Urine NEGATIVE Urobilinogen, Urine <2.0 Nitrite, Urine NEGATIVE Leukocyte Esterase, Urine NEGATIVE URINALYSIS MICROSCOPIC WITH REFLEX CULTURE - Abnormal WBC, Urine 1-5 RBC, Urine 3-5 Mucus, Urine 1+ Hyaline Casts, Urine 1+ (*) Fine Granular Casts, Urine 3+ (*) TROPONIN I, HIGH SENSITIVITY - Normal Troponin I, High Sensitivity <3 Narrative: Less than 99th percentile of normal range cutoff- Female and children under 18 years old <14 ng/L; Male <21 ng/L: Negative Repeat testing should be performed if clinically indicated. Female and children under 18 years old 14-50 ng/L; Male 21-50 ng/L: Consistent with possible cardiac damage and possible increased clinical risk. Serial measurements may help to assess extent of myocardial damage. >50 ng/L: Consistent with cardiac damage, increased clinical risk and myocardial infarction. Serial measurements may help assess extent of myocardial damage. NOTE: Children less than 1 year old may have higher baseline troponin levels and results should be interpreted in conjunction with the overall clinical context. NOTE: Troponin I testing is performed using a different testing methodology at [facility] than at [facility]. Direct result comparisons should only be made within the same method. SARS-COV-2 PCR - Normal Coronavirus 2019, PCR Narrative: This assay has received FDA Emergency Use Authorization (EUA) and is only authorized for the duration of time that circumstances exist to justify the authorization of the emergency use of in vitro diagnostic tests for the detection of SARS-CoV-2 virus and/or diagnosis of COVID-19 infection under section 564(b)(1) of the Act, 21 U.S.C. 360bbb-3(b)(1). This assay is an in vitro diagnostic nucleic acid amplification test for the qualitative detection of SARS-CoV-2 from nasopharyngeal specimens and has been validated for use at [facility]. Negative results do not preclude COVID-19 infections and should not be used as the sole basis for diagnosis, treatment, or other management decisions. INFLUENZA A AND B PCR - Normal Flu A Result Flu B Result Narrative: This assay is an in vitro diagnostic multiplex nucleic acid amplification test for the detection and discrimination of Influenza A & B from nasopharyngeal specimens, and has been validated for use at [facility]. Negative results do not preclude Influenza A/B infections, and should not be used as the sole basis for diagnosis, treatment, or other management decisions. If Influenza A/B and RSV PCR results are negative, testing for Parainfluenza virus, Adenovirus and Metapneumovirus is routinely performed for [facility] pediatric oncology and intensive care inpatients, and is available on other patients by placing an add-on request. URINALYSIS WITH REFLEX CULTURE AND MICROSCOPIC Narrative: The following orders were created for panel order Urinalysis with Reflex Culture and Microscopic. Procedure Abnormality Status --------- ------ Urinalysis with Reflex C...[[id number]] Abnormal Final result Extra Urine Phipps Tube[[id number]] In process Please view results for these tests on the individual orders. EXTRA URINE PHIPPS TUBE CT head wo IV contrast Final Result No evidence of acute cortical infarct or intracranial hemorrhage. MACRO: None Signed by: Jonah Dugan 07/14/2023 1:29 PM Dictation workstation: [id number] XR chest 1 view Final Result No focal infiltrate or pneumothorax is identified. MACRO: None. Signed by: John Paul Sales 07/14/2023 12:27 PM Dictation workstation: [id number] Medical Decision Making: Patient appears well nontoxic. No focal deficit. Lab work otherwise unremarkable. CT brain negative. Chest x-ray clear. Patient treated with fluid resuscitation and feeling much improved. Able to ambulate to the bathroom without any difficulty. Stable at time of discharge. Differential Diagnoses Considered: Volume depletion, vasovagal syncope, intracranial hemorrhage, electrolyte abnormality Independent Interpretation of Studies: I independently interpreted: CT brain shows no intracranial hemorrhage or mass. Chest x-ray shows no evidence of pneumonia or pneumothorax. Escalation of Care: Appropriate for discharge and follow-up with primary care. Procedure ECG 12 lead Performed by: Logan Griffin DO Authorized by: Logan Griffin DO ECG interpreted by ED Physician in the absence of a inspection machine tender: yes Comments: EKG interpreted by Dr. Logan Griffin: Normal sinus rhythm at 85 bpm. GA interval 188 ms. QTc of 452 ms. No evidence of ST elevation or depression at this time. Logan Griffin DO 07/14/23 1447 documented in this encounter [facility] Work Phone: Physician Emergency department Note 07-14-2023 Logan Griffin DO - 07/14/2023 11:56 AM EST Note Date & Type Note Facility 07-14-2023 Physician Emergency department Note Associated Order(s): ECG 12 lead HPI Chief Complaint Patient presents with Syncope Brought to ED per [facility] crain after syncopal episode at [employer] while sitting at a table. He denies any pain or SOB before the episode or now. He is diaphoretic and tired. He did not hit his head or fall to ground. No injuries from episode. EKG done at Limitations to History: None HPI: 57-year-old male presents with concern for syncopal episode while at [employer]. Was seated. States he was feeling unwell somewhat while going to the restaurant. Did state that he had nausea as well as dizziness prior. Denies any headache, vision change, neck pain, chest pain, shortness of breath, abdominal pain, urinary symptoms. Additional History Obtained from: EMS Physical Exam: VS: As documented in the triage note and EMR flowsheet from this visit were reviewed. Appearance: Alert. cooperative, in no acute distress. Skin: Intact, dry skin, no lesions, rash, petechiae or purpura. Eyes: PERRLA, EOMs intact, Conjunctiva pink with no redness or exudates. HENT: Normocephalic, atraumatic. Nares patent. No intraoral lesions. Neck: Supple, without meningismus. Trachea at midline. No lymphadenopathy. Pulmonary: Clear bilaterally with good chest wall excursion. No rales, rhonchi or wheezing. No accessory muscle use or stridor. Cardiac: Regular rate and rhythm, no rubs, murmurs, or gallops. Abdomen: Abdomen is soft, nontender, and nondistended. No palpable organomegaly. No rebound or guarding. No CVA tenderness. Nonsurgical abdomen. Genitourinary: Exam deferred. Musculoskeletal: Full range of motion. Pulses full and equal. No cyanosis, clubbing, or edema. Neurological: Cranial nerves are grossly intact, grossly normal sensation, no weakness, no focal findings identified. Psychiatric: Appropriate mood and affect. Peterson Coma Scale Score: 15 Patient History No past medical history on file. No past surgical history on file. No family history on file. Social History Tobacco Use Smoking status: Not on file Smokeless tobacco: Not on file Substance Use Topics Alcohol use: Not on file Drug use: Not on file Physical Exam ED Triage Vitals [07/14/23 1200] Temperature Heart Rate Respirations BP 36.3 C (97.4 F) 86 18 115/74 Pulse Ox Temp src Heart Rate Source Patient Position (!) 92 % -- -- -- BP Location FiO2 (%) -- -- Physical Exam ED Course & MDM Diagnoses as of 07/14/23 1444 Syncope, unspecified syncope type Volume depletion Medical Decision Making Labs Reviewed CBC WITH AUTO DIFFERENTIAL - Abnormal WBC 8.1 nRBC 0.0 RBC 4.87 Hemoglobin 15.1 Hematocrit 45.4 MCV 93 MCH 31.0 MCHC 33.3 RDW 13.1 Platelets 314 Neutrophils % 46.5 Immature Granulocytes %, Automated 0.1 Lymphocytes % 35.2 Monocytes % 8.9 Eosinophils % 7.7 Basophils % 1.6 Neutrophils Absolute 3.74 Immature Granulocytes Absolute, Au* 0.01 Lymphocytes Absolute 2.84 Monocytes Absolute 0.72 Eosinophils Absolute 0.62 Basophils Absolute 0.13 (*) COMPREHENSIVE METABOLIC PANEL - Abnormal Glucose 167 (*) Sodium 139 Potassium 3.6 Chloride 106 Bicarbonate 24 Anion Gap 13 Urea Nitrogen 14 Creatinine 1.15 eGFR 75 Calcium 9.3 Albumin 4.0 Alkaline Phosphatase 95 Total Protein 6.2 (*) AST 19 Bilirubin, Total 0.5 ALT 38 URINALYSIS WITH REFLEX CULTURE AND MICROSCOPIC - Abnormal Color, Urine Yellow Appearance, Urine Hazy (*) Specific [place], Urine 1.019 pH, Urine 5.0 Protein, Urine 100 (2+) (*) Glucose, Urine NEGATIVE Blood, Urine NEGATIVE Ketones, Urine 20 (1+) (*) Bilirubin, Urine NEGATIVE Urobilinogen, Urine <2.0 Nitrite, Urine NEGATIVE Leukocyte Esterase, Urine NEGATIVE URINALYSIS MICROSCOPIC WITH REFLEX CULTURE - Abnormal WBC, Urine 1-5 RBC, Urine 3-5 Mucus, Urine 1+ Hyaline Casts, Urine 1+ (*) Fine Granular Casts, Urine 3+ (*) TROPONIN I, HIGH SENSITIVITY - Normal Troponin I, High Sensitivity <3 Narrative: Less than 99th percentile of normal range cutoff- Female and children under 18 years old <14 ng/L; Male <21 ng/L: Negative Repeat testing should be performed if clinically indicated. Female and children under 18 years old 14-50 ng/L; Male 21-50 ng/L: Consistent with possible cardiac damage and possible increased clinical risk. Serial measurements may help to assess extent of myocardial damage. >50 ng/L: Consistent with cardiac damage, increased clinical risk and myocardial infarction. Serial measurements may help assess extent of myocardial damage. NOTE: Children less than 1 year old may have higher baseline troponin levels and results should be interpreted in conjunction with the overall clinical context. NOTE: Troponin I testing is performed using a different testing methodology at [facility] than at [facility]. Direct result comparisons should only be made within the same method. SARS-COV-2 PCR - Normal Coronavirus 2019, PCR Narrative: This assay has received FDA Emergency Use Authorization (EUA) and is only authorized for the duration of time that circumstances exist to justify the authorization of the emergency use of in vitro diagnostic tests for the detection of SARS-CoV-2 virus and/or diagnosis of COVID-19 infection under section 564(b)(1) of the Act, 21 U.S.C. 360bbb-3(b)(1). This assay is an in vitro diagnostic nucleic acid amplification test for the qualitative detection of SARS-CoV-2 from nasopharyngeal specimens and has been validated for use at [facility]. Negative results do not preclude COVID-19 infections and should not be used as the sole basis for diagnosis, treatment, or other management decisions. INFLUENZA A AND B PCR - Normal Flu A Result Flu B Result Narrative: This assay is an in vitro diagnostic multiplex nucleic acid amplification test for the detection and discrimination of Influenza A & B from nasopharyngeal specimens, and has been validated for use at [facility]. Negative results do not preclude Influenza A/B infections, and should not be used as the sole basis for diagnosis, treatment, or other management decisions. If Influenza A/B and RSV PCR results are negative, testing for Parainfluenza virus, Adenovirus and Metapneumovirus is routinely performed for [facility] pediatric oncology and intensive care inpatients, and is available on other patients by placing an add-on request. URINALYSIS WITH REFLEX CULTURE AND MICROSCOPIC Narrative: The following orders were created for panel order Urinalysis with Reflex Culture and Microscopic. Procedure Abnormality Status --------- ------ Urinalysis with Reflex C...[[id number]] Abnormal Final result Extra Urine Phipps Tube[[id number]] In process Please view results for these tests on the individual orders. EXTRA URINE PHIPPS TUBE CT head wo IV contrast Final Result No evidence of acute cortical infarct or intracranial hemorrhage. MACRO: None Signed by: Jonah Dugan 07/14/2023 1:29 PM Dictation workstation: [id number] XR chest 1 view Final Result No focal infiltrate or pneumothorax is identified. MACRO: None. Signed by: John Paul Sales 07/14/2023 12:27 PM Dictation workstation: [id number] Medical Decision Making: Patient appears well nontoxic. No focal deficit. Lab work otherwise unremarkable. CT brain negative. Chest x-ray clear. Patient treated with fluid resuscitation and feeling much improved. Able to ambulate to the bathroom without any difficulty. Stable at time of discharge. Differential Diagnoses Considered: Volume depletion, vasovagal syncope, intracranial hemorrhage, electrolyte abnormality Independent Interpretation of Studies: I independently interpreted: CT brain shows no intracranial hemorrhage or mass. Chest x-ray shows no evidence of pneumonia or pneumothorax. Escalation of Care: Appropriate for discharge and follow-up with primary care. Procedure ECG 12 lead Performed by: Logan Griffin DO Authorized by: Logan Griffin DO ECG interpreted by ED Physician in the absence of a inspection machine tender: yes Comments: EKG interpreted by Dr. Logan Griffin: Normal sinus rhythm at 85 bpm. GA interval 188 ms. QTc of 452 ms. No evidence of ST elevation or depression at this time. Logan Griffin DO 07/14/23 1447 [facility] Work Phone: Evaluation note Note Date & Type Note Facility documented in this encounter [facility] Work Phone: Reason for referral (narrative) Consultation (Routine) - Authorized Note Date & Type Note Facility Referral ID Status Reason Start Date Expiration Date Visits Requested Visits Authorized [id number] Authorized Specialty Services Required 07/14/2023 07/13/2024 1 1 [facility] Work Phone: Summary Purpose Family History No Family History Records FoundThere may be information available, but it has not been provided by the sender.No Family History Records FoundNo Family History Records Found Advance Directives No Advanced Directives Records FoundThere may be information available, but it has not been provided by the sender.No Advanced Directives Records FoundNo Advanced Directives Records Found Chief Complaint Chief Complaint Description Start Date bilateral hand pain Preliminary chief co mplaint data, not yet signed by the author as of Assessments There may be information available, but it has not been provided by the sender. Review of System There may be information available, but it has not been provided by the sender. History of Present Illness There may be information available, but it has not been provided by the sender. Additional Source Comments (unrecognized sect ion and content) No Status Records FoundNo Status Records FoundNo Status Records Found INFORMATION SOURCE (unrecogn ized section and content) DATE CREATED AUTHOR AUTHOR'S ORGANIZ ATION 07/16/2023 [facility] DATE CREATED AUTHOR AUTHOR'S ORGANIZ ATION 07/22/2023 [facility] Reason for Visit (unrecogniz ed section and content) Reason Comments Syncope Brought to ED per [employer] D squad after syncopal episode at [facility] while sitting at a table. He denies any pain or SOB before the episode or now. He is diaphoretic and tired. He did not hit his head or fall to ground. No injuries from episode. EKG done at Scheduled Active and Recently Administ ered Medications (unrecognized section and content) PRN Medication Order 07/12/2023 07/13/2023 07/14/2023 oxygen (O2) therapy inhalation, Continuous PRN - O2/gases, other, Starting on 07/14/23 at 1202, Device: Nasal Cannula, Rate in liters per minute: 2 LPM 1202 (Start - Provid er: Reta Rachel CRTT) Care Teams (unrecognized sec tion and content) FOR RECORDS PERTAINING TO PATIENTS WHO ARE OR HAVE BEEN ENROLLED IN A CHEMICAL DEPENDENCY/SUBSTANCEABUSE PROGRAM, SOME INFORMATION MAY BE OMITTED. This clinical summary was aggregated from multiple sources. Caution should be exercised in using it in the provision of clinical care. This summary normalizes information from multiple sources, and as a consequence, information in this document may materially change the coding, format and clinical context of patient data. In addition, data may be omitted in some cases. CLINICAL DECISIONS SHOULD BE BASED ON THE PRIMARY CLINICAL RECORDS. [facility]. provides no warranty or guarantee of the accuracy or completeness of information in this document.
--- NOTE | 2023-07-29 06:39 | MRI_ITS ---
INDICATION: SYNCOPE AND COLLAPSE EXAMINATION: MRI - MR Brain WO/W Contrast TECHNIQUE: Multiplanar and multisequence MR images of the brain were obtained without and with gadolinium. IV Contrast Dosage and Agent: 10 mL Dotarem COMPARISON: CT brain dated 12/07/2021 FINDINGS: BRAIN PARENCHYMA: No MRI evidence of hemorrhage. No evidence of acute infarct. No intracranial mass or mass effect. No areas of abnormal brain parenchymal or leptomeningeal enhancement. There is preservation of the tillman/white matter interface. Normal sella turcica, pituitary gland, infundibular stalk, optic chiasm and hypothalamus. Posterior fossa structures are unremarkable. CSF SPACES: Appropriate for age. No hydrocephalus. Basal cisterns are patent. VASCULAR SYSTEM: Normal flow voids in the major intracranial circulation. CALVARIUM, SKULL BASE, PARANASAL SINUSES AND MASTOID AIR CELLS: Clear. No expansile changes. ORBITS: Both globes, extraocular muscles, optic nerves and retrobulbar fat appear unremarkable. MRI/Brain W/WO Contrast IMPRESSION: Normal MR imaging appearance of the brain. Electronically Signed: Jamshid Bautista MD at 2:34 EST ,
--- NOTE | 2023-07-29 06:41 | MRI_ITS ---
INDICATION: SYNCOPE AND COLLAPSE EXAMINATION: MRA - MRA Head W/O Contrast TECHNIQUE: Routine [place]/brain 3D time of flight MR angiogram protocol was performed without gadolinium. 3D reconstructions were reviewed. IV Contrast Dosage and Agent: None. COMPARISON: No relevant prior comparison study available FINDINGS: --Anterior Circulation: ICAs: No significant stenosis at the intracranial/visualized segments. ACAs: No significant stenosis at the visualized segments. ACOM: Present. MCAs: No significant stenosis at the visualized segments. --Posterior Circulation: PCOMs: Absent assembler molded frames: No significant stenosis at the visualized segments. BASILAR ARTERY: No significant stenosis. VERTEBRAL ARTERIES: No significant stenosis at the intradural/visualized segments. No evidence of intracranial aneurysm or vascular malformation. MRI/MRA Head ONLY without Contrast IMPRESSION: Unremarkable MRA head. Electronically Signed: Jamshid Bautista MD at 2:25 EST ,
== END | disposition home or self-care (01) ==
LOC: MRI 06:32
PROVIDERS: PCP Family Medicine Geriatric Medicine; Referring Provider Family Medicine Geriatric Medicine; Visit Provider Family Medicine Geriatric Medicine
DX: R55 Syncope and collapse (principal)
CPT/HCPCS: 70544; 70553; A9575; A4216

== ENCOUNTER → 2023-08-06 | Outpatient (CLI) | payer OTHER, SELFPAY ==
[2023-08-08 18:08] LABS: Lyme IgG P18 Ab Absent (.); Lyme IgG P23 Ab Absent (.); Lyme IgG P28 Ab Absent (.); Lyme IgG P30 Ab Absent (.); Lyme IgG P39 Ab Absent (.); Lyme IgG P41 Ab Absent (.); Lyme IgG P45 Ab Absent (.); Lyme IgG P58 Ab Absent (.); Lyme IgG P66 Ab Absent (.); Lyme IgG P93 Ab Absent (.); Lyme IgG WB Interpretation Negative (.); Lyme IgM P23 Ab Absent (.); Lyme IgM P39 Ab Absent (.); Lyme IgM P41 Ab Absent (.); Lyme IgM WB Interpretation Negative (.)
== END | disposition home or self-care (01) ==
LOC: POLAB3 09:48
PROVIDERS: PCP Family Medicine Geriatric Medicine; Visit Provider Family Medicine Geriatric Medicine
DX: T14.8XXA Other injury of unspecified body region, initial encounter (principal); W57.XXXA Bitten or stung by nonvenomous insect and other nonvenomous arthropods, initial encounter
CPT/HCPCS: 36415; 86617

== ENCOUNTER → 2023-08-11 | Outpatient (CLI) | payer OTHER, SELFPAY ==
--- OUTSIDE RECORDS SUMMARY | 2023-08-11 08:35 | XMS RPT_ITS | CCD ---
Author Name Unknown Address [address] [place] [address] Organization [facility] Care Team Providers Care Condominium [employer] Manager Name Role Phone Med Chand Unavailable Unavailable Med Chand Unavailable Unavailable Robbi Santizo Chi Unavailable Unavailable Jolly MATHEWS, Roby Agarwal Unavailable Norman Santizo MD Primary Care Provider [phone] LOGAN GRIFFIN Attending Unavailable NORMAN SANTIZO Primary Care Unavailable Medications Current Medications Medication Drug Class(es) Dates Sig (Normalized) Sig (Original) oxygen (O2) therapy (1 source) Start: 07-14-2023 oxygen (O2) therapy Completed/Discontinued Medications Medication Drug Class(es) Dates Sig (Normalized) Sig (Original) baclofen 10 mg oral tablet (1 source) gamma-Aminobutyric Acid-ergic Agonist Start: 08-09-2019 BACLOFEN 10 MG TABS one tablet daily BACLOFEN [id number] Rosa Maria Ferguson [employer] diclofenac sodium 25 mg delayed release oral tablet (1 source) Nonsteroidal Anti-inflammatory Drug Start: 08-09-2019 DICLOFENAC SODIUM 25 MG TBEC one tablet twice daily DICLOFENAC SODIUM [id number] Roas Maria Ferguson [employer]EL [employer] furosemide 20 mg oral tablet (1 source) Loop Diuretic Start: 08-09-2019 LASIX 20 MG TABS one tablet daily FUROSEMIDE [id number] Rosa Maria Ferguson [employer]EL [employer] predniSONE 10 mg oral tablet (1 source) Start: 08-09-2019 PREDNISONE 10 MG TABS titer as prescribed by family physician PREDNISONE [id number] Rosa Maria Ferguson HEEL LAYER 1000 ml sodium chloride 9 mg/ml injection [...] 82 mm[Hg] Logan Griffin DO Work Phone: [facility] 07-14-2023 14:30-0500 Heart rate 79 /min Logan Griffin DO Work Phone: [facility] 07-14-2023 14:30-0500 Respiratory rate 15 /min Logan Abernathyservando DO Work Phone: [facility] 07-14-2023 14:30-0500 SaO2% (BldA) [Mass fraction] 96 % Logan Griffin DO Work Phone: [facility] 07-14-2023 14:30-0500 Systolic blood pressure 123 mm[Hg] Logan Griffin DO Work Phone: [facility] 07-14-2023 12:00-0500 Body height 193 cm Logan Griffin DO Work Phone: [facility] 07-14-2023 12:00-0500 Body mass index (BMI) [Ratio] 33.47 kg/m2 Logan Griffin DO Work Phone: [facility] 07-14-2023 12:00-0500 Body temperature 97.39 [degF] Logan Abernathyservando DO Work Phone: [facility] 07-14-2023 12:00-0500 Body weight 124.74 kg Logansukhjinder Griffin DO Work Phone: [facility] NEGATED: Highlighted [id number] 12:23-0400 BMI (Body Mass Index) 34.21 kg/m2 Balaji García [facility] Work Phone: NEGATED: Highlighted [id number] 12:23-0400 Body weight 127.01 kg Balaji [facility] Work Phone: NEGATED: Highlighted [id number] 12:23-0400 Body weight 127 kg [facility] Work Phone: NEGATED: Highlighted [id number] 12:23-0400 Height 193.04 cm Balaji García [facility] Work Phone: NEGATED: Highlighted [id number] 12:23-0400 Height 193 cm Balaji García [facility] Work Phone: Encounters Encounter Date Encounter Type Care Provider Facility Start: 07-14-2023 End: 07-14-2023 Emergency department patient visit LOGAN GRIFFIN [facility] Start: 07-14-2023 End: 07-14-2023 Emergency department patient visit Logan Griffin DO Work Phone: [facility] Emergency [facility] Procedures Date Procedure Procedure [...] COVID-19 Vaccine () COVID-19 Vaccine ( season) [facility] Start: 1988 DTaP/Tdap/Td Vaccine s (1 - Tdap) DTaP/Tdap/Td Vaccines (1 - Tdap) [facility] Start: 1984 Hepatitis C screening Hepatitis C Sc reening [facility] Start: 09-23-1967 MMR Vaccines (1 of 1 - Standard series) MMR Vaccines (1 of 1 - Standard series) [facility] Start: 1966 Hepatitis B Vaccines (1 of 3 - 3-dose series) Hepatitis B Vaccines (1 of 3 - 3-dose series) [facility] Start: 1966 HIV screening HIV Screening [facility] Start: 1966 Lipid panel Lipid Panel [facility] Start: 1966 Screening for malignant neoplasm of colon [facility] Start: 1966 Yearly Adult Physical Yearly Adult P hysical [facility] ECG 12 lead ECG 12 lead ECG STAT 07/14/2023 2:47 PM EST [facility] Work Phone: End: 07-14-2023 Extra Urine Phipps Tube [facility] Work Phone: Payers Date Payer Category Payer Unknown [id number] 2017 Unknown 1965 Unknown [id number] Social History Date Type Detail Facility Tobacco smoking status NHIS Tobacco smoking consumption unknown [facility] Work Phone: Start: 1965 Sex Assigned At Not on file [facility] Work Phone: Gender identity [facility]: Start: 07-04-2023 End: 07-14-2023 Exposure to SARS-CoV-2 (event) Not sure [facility] Work Phone: NEGATED: Highlighted rowStart: 08-19-2019 End: 08-19-2019 Alcohol use Alcohol use [facility] Work Phone: NEGATED: Highlighted rowStart: 08-19-2019 End: 08-19-2019 Details of drug misuse behavior Details of drug misuse behavior [facility] Work Phone: NEGATED: Highlighted rowStart: 08-19-2019 End: 08-19-2019 How many days of moderate to strenuous exercise, like a brisk walk, did you do in the last 7 days? How many days of moderate to strenuous exercise, like a brisk walk, did you do in the last 7 days? [facility] Work Phone: NEGATED: Highlighted rowStart: 08-19-2019 End: 08-19-2019 Assertion Never smoker [facility] Work Phone: Emergency department Note 07-14-2023 [...] findings identified. Psychiatric: Appropriate mood and affect. Charisse Coma Scale Score: 15 Patient History No [...] Urine Yellow Appearance, Urine Hazy (*) Specific [place], Urine 1.019 pH, Urine 5.0 Protein, Urine [...] performed using a different testing methodology at [facility] than at [facility]. Direct result comparisons should only be made [...] and has been validated for use at [facility]. Negative results do not preclude [...] and has been validated for use at [facility]. Negative results do not preclude Influenza A/B infections, and should not be used as the sole basis for diagnosis, treatment, or other management decisions. If Influenza A/B and RSV PCR results are negative, testing for Parainfluenza virus, Adenovirus and Metapneumovirus is routinely performed for [facility] pediatric oncology and intensive care inpatients, and is available on other patients by placing an add-on request. URINALYSIS WITH REFLEX CULTURE AND MICROSCOPIC Narrative: The following orders were created for panel order Urinalysis with Reflex Culture and Microscopic. Procedure Abnormality Status --------- ------ Urinalysis with Reflex C...[[id number]] Abnormal Final result Extra Urine Phipps Tube[[id number]] In process Please view results for these tests on the individual orders. EXTRA URINE PHIPPS TUBE CT head wo IV contrast Final Result No evidence of acute cortical infarct or intracranial hemorrhage. MACRO: None Signed by: Jonah Dugan 07/14/2023 1:29 PM Dictation workstation: [id number] XR chest 1 view Final Result No focal infiltrate or pneumothorax is identified. MACRO: None. Signed by: John Paul Sales 07/14/2023 12:27 PM Dictation workstation: [id number] Medical Decision Making: Patient appears well nontoxic. [...] ED Physician in the absence of a grain drier: yes Comments: EKG interpreted by Dr. Logan Griffin: Normal sinus rhythm at 85 bpm. MT interval 188 ms. QTc of 452 ms. No evidence of ST elevation or depression at this time. Logan Griffin DO 07/14/23 1447 documented in this encounter [facility] Work Phone: Physician Emergency department [...] findings identified. Psychiatric: Appropriate mood and affect. Charisse Coma Scale Score: 15 Patient History No [...] Urine Yellow Appearance, Urine Hazy (*) Specific [place], Urine 1.019 pH, Urine 5.0 Protein, Urine [...] performed using a different testing methodology at [facility] than at [facility]. Direct result comparisons should only be made [...] and has been validated for use at [facility]. Negative results do not preclude [...] and has been validated for use at [facility]. Negative results do not preclude Influenza A/B infections, and should not be used as the sole basis for diagnosis, treatment, or other management decisions. If Influenza A/B and RSV PCR results are negative, testing for Parainfluenza virus, Adenovirus and Metapneumovirus is routinely performed for [facility] pediatric oncology and intensive care inpatients, and is available on other patients by placing an add-on request. URINALYSIS WITH REFLEX CULTURE AND MICROSCOPIC Narrative: The following orders were created for panel order Urinalysis with Reflex Culture and Microscopic. Procedure Abnormality Status --------- ------ Urinalysis with Reflex C...[[id number]] Abnormal Final result Extra Urine Phipps Tube[[id number]] In process Please view results for these tests on the individual orders. EXTRA URINE PHIPPS TUBE CT head wo IV contrast Final Result No evidence of acute cortical infarct or intracranial hemorrhage. MACRO: None Signed by: Jonah Dugan 07/14/2023 1:29 PM Dictation workstation: [id number] XR chest 1 view Final Result No focal infiltrate or pneumothorax is identified. MACRO: None. Signed by: John Paul Sales 07/14/2023 12:27 PM Dictation workstation: [id number] Medical Decision Making: Patient appears well nontoxic. [...] ED Physician in the absence of a grain drier: yes Comments: EKG interpreted by Dr. Logan Griffin: Normal sinus rhythm at 85 bpm. MT interval 188 ms. QTc of 452 ms. No evidence of ST elevation or depression at this time. Logan Griffin DO 07/14/23 1447 [facility] Work Phone: Evaluation note Note Date & Type Note Facility documented in this encounter [facility] Work Phone: Reason for referral (narrative) Consultation (Routine) - Authorized Note Date & Type Note Facility Referral ID Status Reason Start Date Expiration Date Visits Requested Visits Authorized [id number] Authorized Specialty Services Required 07/14/2023 07/13/2024 1 1 [facility] Work Phone: Summary Purpose Family [...] DATE CREATED AUTHOR AUTHOR'S ORGANIZ ATION 07/16/2023 [facility] DATE CREATED AUTHOR AUTHOR'S ORGANIZ ATION 07/22/2023 [facility] Reason for Visit (unrecogniz ed section and content) Reason Comments 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 He [...] BE BASED ON THE PRIMARY CLINICAL RECORDS. [facility] [employer] [facility]. provides no warranty or guarantee of the accuracy or completeness of information in this document.
== END | disposition home or self-care (01) ==
PROVIDERS: PCP Family Medicine Geriatric Medicine; Referring Provider Family Medicine Geriatric Medicine; Visit Provider Family Medicine Geriatric Medicine
DX: R55 Syncope and collapse (principal)
CPT/HCPCS: 95819

== ENCOUNTER → 2023-08-15 | Outpatient (CLI) | payer OTHER, SELFPAY ==
--- NOTE | 2023-08-15 08:43 | ECHOD_ITS ---
Reason For Study: Syncope Procedure This was a 2D Doppler, Color Flow transthoracic echocardiogram. Exam performed in department. Left Ventricle Normal LV size. Left ventricular systolic function is normal. The estimated ejection fraction is 55 %. Stage 1 diastolic dysfunction. No regional wall motion abnormalities noted. Right Ventricle Normal RV size. Normal systolic function. Atria Normal left atrium. Normal right atrium. Mitral Valve Normal mitral valve. Tricuspid Valve Normal tricuspid valve. Mild tricuspid valve insufficiency. Normal pulmonary artery pressure. Pulmonic Valve The pulmonic valve is not well visualized. Great Vessels Normal aortic root. Pericardium/Pleural No pericardial effusion. MMode/2D Measurements & Calculations LVIDd: 4.4 cm IVSd: 1.1 cm Ao root diam: 3.4 cm LVIDs: 3.2 cm LVPWd: 1.1 cm LA dimension: 3.9 cm RVDd: 3.9 cm FS: 26.3 % LAV(MOD-bp): 56.3 ml LVAd ap4: 36.5 cm2 SV(MOD-sp4): 59.6 ml LAV(MOD-bp) Indexed: 21.9 ml/m2 LVLd ap4: 9.0 cm LAV(MOD-sp2): 58.2 ml EDV(MOD-sp4): 120.8 ml LAV(MOD-sp4): 54.3 ml EDV(sp4-el): 125.4 ml LVAs ap4: 24.3 cm2 LVLs ap4: 8.1 cm ESV(MOD-sp4): 61.2 ml ESV(sp4-el): 62.0 ml EF(MOD-sp4): 49.4 % EF(sp4-el): 50.6 % SV(sp4-el): 63.4 ml LA A4 area: 20.0 cm2 RA A4 area: 19.7 cm2 TAPSE: 1.8 cm Time Measurements MV dec time: 0.22 sec Doppler Measurements & Calculations MV E max raphael: 80.4 cm/sec Lat Peak E' Raphael: 10.9 cm/sec Med Peak E' Raphael: 10.5 cm/sec MV A max raphael: 93.8 cm/sec E/E' lat: 7.4 E/E' med: 7.7 MV E/A: 0.86 MV V2 max: 94.1 cm/sec MV P1/2t max raphael: 75.8 cm/sec Ao V2 max: 136.1 cm/sec MV max P.5 mmHg MV P1/2t: 67.0 msec Ao max P.4 mmHg MV V2 mean: 55.2 cm/sec MV dec slope: 331.1 cm/sec2 Ao V2 mean: 93.8 cm/sec MV mean P.4 mmHg Ao mean P.1 mmHg MV V2 VTI: 21.3 cm MVA(P1/2t): 3.3 cm2 Ao V2 VTI: 26.7 cm AV (velocity ratio): 0.93 LV V1 max: 130.0 cm/sec PA V2 max: 126.5 cm/sec TR max raphael: 206.1 cm/sec LV V1 max P.8 mmHg PA V2 mean: 87.0 cm/sec TR max P.0 mmHg LV V1 mean P.8 mmHg LV V1 mean: 90.9 cm/sec LV V1 VTI: 24.8 cm ECHO/Echo Complete Interpretation Summary Normal LV size. Left ventricular systolic function is normal. Stage 1 diastolic dysfunction. The estimated ejection fraction is 55 %. The study was technically difficult. Ordering Physician: Robbi Turner Chi Referring Physician: Miguel Petty MD Performed By: Oziel Anderson RCS
== END | disposition home or self-care (01) ==
PROVIDERS: PCP Family Medicine Geriatric Medicine; Referring Provider Family Medicine Geriatric Medicine; Visit Provider Family Medicine Geriatric Medicine
DX: R55 Syncope and collapse (principal)
CPT/HCPCS: 93306

== ENCOUNTER → 2023-08-27 | Outpatient (CLI) | payer OTHER, SELFPAY ==
--- NOTE | 2023-08-27 07:40 | CDU_ITS ---
Reason For Study: Syncope Rt. Velocities/BP Lt. Velocities/BP Prox CCA 96.6/27.2 cm/sec. Prox CCA 105.1/25.3 cm/sec. Mid CCA 80.1/23.0 cm/sec. Mid CCA 96.5/31.4 cm/sec. Dist CCA 73.5/24.1 cm/sec. Dist CCA 95.3/31.4 cm/sec. Prox ICA 66.0/21.6 cm/sec. Prox ICA 85.1/30.3 cm/sec. Mid ICA 76.8/35.2 cm/sec. Mid ICA 61.6/25.0 cm/sec. Dist ICA 78.7/35.2 cm/sec. Dist ICA 61.0/30.4 cm/sec. Rt. ICA/CCA = 1.00. Lt. ICA/CCA = 0.9. Prox ECA 109.4/21.7 cm/sec. Prox ECA 86.4/17.1 cm/sec. Rt. Vert. 53.8/20.7 cm/sec. Lt. Vert. 45.0/18.0 cm/sec. Right Extracranial There is intimal thickening but no significant atherosclerotic plaque noted in the right common carotid artery. There is intimal thickening but no significant atherosclerotic plaque noted in the right internal carotid artery. There is intimal thickening but no significant atherosclerotic plaque noted in the right external carotid artery. Antegrade flow is noted in the right vertebral artery. Left Extracranial There is intimal thickening but no significant atherosclerotic plaque noted in the left common carotid artery. There is intimal thickening but no significant atherosclerotic plaque noted in the left internal carotid artery. There is intimal thickening but no significant atherosclerotic plaque noted in the left external carotid artery. Antegrade flow is noted in the left vertebral artery. Procedure Carotid Duplex [id number]. This is a Carotid Duplex examination using B-mode, color flow and specral Doppler. The exam was diagnostic. Exam performed in department. VL/Carotid Duplex Ultrasound Interpretation Summary Normal right extracranial internal carotid. Normal left extracranial internal carotid. Patent and antegrade vertebrals bilaterally. Ordering Physician: Robbi Turner Chi Referring Physician: Robbi Turner Chi Performed By: Donavan Murray RVT and Student
== END | disposition home or self-care (01) ==
PROVIDERS: PCP Family Medicine Geriatric Medicine; Referring Provider Family Medicine Geriatric Medicine; Visit Provider Family Medicine Geriatric Medicine
DX: R55 Syncope and collapse (principal)
CPT/HCPCS: 93880

== ENCOUNTER → 2023-10-14 | Outpatient (CLI) | payer OTHER, SELFPAY ==
--- NOTE | 2023-10-20 11:28 | STRESSREP_ITS ---
Stress Test Report Date: 10/14/2023 Procedure: Pharmacologic stress nuclear imaging study Indications: Chest pain Consent: Per the patient Procedure: The patient underwent pharmacologic (Regadenoson) evaluation with a peak heart rate of 107 beats per minute (65%predicted maximal heart rate) and a peak blood pressure of 118/64 mmHg. The baseline ECG demonstrated normal sinus rhythm. EKG during lexiscan infusion revealed no significant ischemic changes. EKG post infusion revealed no significant ischemic changes [There were no cardiac dysrhythmias pretest, during pharmacologic infusion, or recovery]. [There was no complaint of chest discomfort during pharmacologic infusion or recovery]. The examination was discontinued secondary to completion of protocol. Impression: 1. Lexiscan stress test test is negative for Lexiscan infusion induced EKG changes of ischemia. 2. Lexiscan stress test test is negative for Lexiscan infusion induced chest pain. 3. Results of the nuclear portion of the test is as below Myocardial perfusion imaging study: Technique: The patient was injected with 14.5 millicuries of technetium 99m Cardiolite and subsequently rest SPECT Cardiolite nuclear imaging was obtained in the horizontal long, vertical long, and short axis views. The patient underwent pharmacologic [Regadenoson 0.4mg] evaluation. Please see above for details. The patient was injected with 44.8 millicuries of technetium 99m Cardiolite and subsequently stress SPECT Cardiolite nuclear imaging was obtained in the horizontal long, vertical long, and short axis views. A gated Cardiolite study at peak stress was obtained. Interpretation: Rest and stress SPECT Cardiolite nuclear imaging status post realignment, normalization, and attenuation correction demonstrate no evidence of significant ischemia or infarction. Gated images reveal no significant regional wall motion abnormalities. The reported LVEF is 55%. Impression: 1. There is []. 2. Estimated ejection fraction is []. This note was generated with [employer] software. It may contain incorrect words, spelling, and punctuation that were not noted in checking the note before signing.
== END | disposition home or self-care (01) ==
LOC: CVS 06:24
PROVIDERS: PCP Family Medicine Geriatric Medicine; Referring Provider Family Medicine Geriatric Medicine; Visit Provider Family Medicine Geriatric Medicine
DX: I51.89 Other ill-defined heart diseases (principal); R07.9 Chest pain, unspecified; R55 Syncope and collapse
CPT/HCPCS: 78452; 93017; A9500; A4216; J2785

== ENCOUNTER → 2023-11-14 | Outpatient (CLI) | payer OTHER, SELFPAY ==
[2023-11-14 10:17] LABS: Absolute Lymphocyte Count 1.96 X10^3/uL (0.83-4.51); Absolute Neutrophil Count 3.7 X10^3/uL (2.0-7.7); Basophil# 0.12 X10^3/uL; Basophil% 1.6 % (0-1); Eosinophil# 0.91 X10^3/uL; Eosinophils% 12.4 % (0-5); Hematocrit 47.5 % (40-54); Hemoglobin 15.5 g/dL (13.0-16.5); Lymphocyte # 1.96 X10^3/ul (0.83-4.51); Lymphocyte % 26.7 % (19-41); Mean Corp Hgb Conc 32.6 g/dL (32-36); Mean Corpuscular Hgb 30.4 pg (27.0-32.0); Mean Corpuscular Volume 93.1 fL (80-94); Monocyte% 8.2 % (0-10); NRBC Flagged by Analyzer 0 % (0-5); Neutrophil # 3.73 X10^3/uL (2.7-7.7); Platelet Count 307 K/mm3 (150-450); RBC Distribution Width CV 13.5 % (11.6-14.6); RBC Distribution Width SD 46.3 fl (35.1-43.9); White Blood Count 7.3 K/mm3 (4.4-11.0)
[2023-11-14 11:00] LABS: ALB/GLOB Ratio 1.3 RATIO (0.9-2.4); AST(SGOT) 23 U/L (15-37); Alanine Aminotransfer ALT/SGPT 53 U/L (16-61); Alkaline Phosphatase 109 U/L (45-117); Anion Gap 6 (5-15); BUN 20 mg/dL (7-18); BUN/Creat Ratio 16.5 RATIO (10-20); Calcium,Total 9.1 mg/dL (8.5-10.1); Chloride 107 mmol/L (98-107); Creatinine, Serum 1.21 mg/dL (0.70-1.30); EST Glomerular Filtration Rate 66 mL/min (>60); Est Glom Filt Rate - Afr Amer 80 mL/min (>60); Globulin 3.1 g/dL (2.2-4.2); Glucose 106 mg/dL (74-106); PSA,Total - Annual Screen 0.48 ng/mL (0.00-4.00); Potassium 4.2 mmol/L (3.5-5.1); Protein, Total 7.1 g/dL (6.4-8.2); Sodium Level 140 mmol/L (136-145); Thyroid Stim Hormone (TSH) 0.07 uIU/mL (0.358-3.74)
== END | disposition home or self-care (01) ==
LOC: LAB 09:46
PROVIDERS: PCP Family Medicine Geriatric Medicine; Referring Provider Family Medicine Geriatric Medicine; Visit Provider Family Medicine Geriatric Medicine
DX: I10 Essential (primary) hypertension (principal); Z12.5 Encounter for screening for malignant neoplasm of prostate
CPT/HCPCS: 36415; 80053; 84153; 84443; 85025; G0103

== ENCOUNTER → 2023-12-26 | Outpatient (CLI) | payer OTHER, SELFPAY ==
[2023-12-26 09:56] LABS: Thyroid Stim Hormone (TSH) 0.13 uIU/mL (0.358-3.74)
== END | disposition home or self-care (01) ==
LOC: LAB 08:51
PROVIDERS: PCP Family Medicine Geriatric Medicine; Referring Provider Family Medicine Geriatric Medicine; Visit Provider Family Medicine Geriatric Medicine
DX: E03.9 Hypothyroidism, unspecified (principal)
CPT/HCPCS: 36415; 84443

== ENCOUNTER → 2024-02-09 | Outpatient (CLI) | payer OTHER, SELFPAY | END | disposition home or self-care (01) | LOC: LAB 08:27 | PROVIDERS: PCP Family Medicine Geriatric Medicine; Referring Provider Family Medicine Geriatric Medicine; Visit Provider Family Medicine Geriatric Medicine | DX: E03.9 Hypothyroidism, unspecified (principal) | CPT/HCPCS: 36415; 84443 ==

== ENCOUNTER → 2024-05-28 | Outpatient (CLI) | payer OTHER, SELFPAY ==
[2024-05-28 10:00] LABS: Absolute Lymphocyte Count 1.63 X10^3/uL (0.83-4.51); Absolute Neutrophil Count 3.6 X10^3/uL (2.0-7.7); Basophil# 0.11 X10^3/uL; Basophil% 1.6 % (0-1); Eosinophil# 0.72 X10^3/uL; Eosinophils% 10.7 % (0-5); Hematocrit 45.2 % (40-54); Hemoglobin 15.1 g/dL (13.0-16.5); Lymphocyte # 1.63 X10^3/ul (0.83-4.51); Lymphocyte % 24.3 % (19-41); Mean Corp Hgb Conc 33.4 g/dL (32-36); Mean Corpuscular Hgb 31.2 pg (27.0-32.0); Mean Corpuscular Volume 93.4 fL (80-94); Monocyte# 0.65 X10^3/uL; Monocyte% 9.7 % (0-10); NRBC Flagged by Analyzer 0 % (0-5); Neutrophil # 3.58 X10^3/uL (2.7-7.7); Neutrophil % 53.3 % (47-70); Platelet Count 307 K/mm3 (150-450); RBC Distribution Width CV 13.2 % (11.6-14.6); RBC Distribution Width SD 44.9 fl (35.1-43.9); Red Blood Count 4.84 M/mm3 (4.6-6.2); White Blood Count 6.7 K/mm3 (4.4-11.0)
[2024-05-28 10:31] LABS: ALB/GLOB Ratio 1.3 RATIO (0.9-2.4); AST(SGOT) 29 U/L (15-37); Alanine Aminotransfer ALT/SGPT 47 U/L (16-61); Alkaline Phosphatase 117 U/L (45-117); Anion Gap 2 (5-15); BUN 11 mg/dL (7-18); BUN/Creat Ratio 9.2 RATIO (10-20); Calcium,Total 8.7 mg/dL (8.5-10.1); Chloride 107 mmol/L (98-107); Cholesterol 178 mg/dL (200); EST Glomerular Filtration Rate 66 mL/min (>60); Est Glom Filt Rate - Afr Amer 80 mL/min (>60); Globulin 3.1 g/dL (2.2-4.2); Glucose 109 mg/dL (74-106); High Density Lipoprotein 61 mg/dL; Potassium 4.3 mmol/L (3.5-5.1); Protein, Total 7.1 g/dL (6.4-8.2); Sodium Level 139 mmol/L (136-145); Triglycerides 101 mg/dL; Very Low Density Lipoprotein 20 mg/dL (5-40)
== END | disposition home or self-care (01) ==
LOC: LAB 09:41
PROVIDERS: PCP Family Medicine Geriatric Medicine; Referring Provider Family Medicine Geriatric Medicine; Visit Provider Family Medicine Geriatric Medicine
DX: I10 Essential (primary) hypertension (principal); E78.5 Hyperlipidemia, unspecified
CPT/HCPCS: 36415; 80053; 80061; 84443; 85025

== ENCOUNTER → 2024-07-16 | Outpatient (CLI) | payer OTHER, SELFPAY ==
[2024-07-16 15:12] LABS: Thyroid Stim Hormone (TSH) 0.196 uIU/mL (0.358-3.740)
== END | disposition home or self-care (01) ==
LOC: LAB 13:33
PROVIDERS: PCP Family Medicine Geriatric Medicine; Referring Provider Family Medicine Geriatric Medicine; Visit Provider Family Medicine Geriatric Medicine
DX: E03.9 Hypothyroidism, unspecified (principal)
CPT/HCPCS: 36415; 84443

== ENCOUNTER → 2024-08-13 | Outpatient (CLI) | payer OTHER, SELFPAY ==
--- NOTE | 2024-08-13 12:30 | RAD_ITS ---
EXAM: XR Lumbosacral Spine, 4 or 5 Views CLINICAL INDICATION: LOW BACK PAIN TECHNIQUE: Frontal, lateral and bilateral oblique views of the lumbar spine. COMPARISON: No relevant prior studies available. FINDINGS: VERTEBRAE: Moderate facet arthropathy of L4 to S1. No acute fracture. Normal alignment. SACRUM/COCCYX: Unremarkable as visualized. No acute fracture. DISC SPACES: No acute findings. No significant narrowing. SOFT TISSUES: Unremarkable. RAD/L/S Spine Min 4 Views IMPRESSION: Degenerative changes as above. Reading Location: [facility]
== END | disposition home or self-care (01) ==
LOC: RAD 12:16
PROVIDERS: PCP Family Medicine Geriatric Medicine; Referring Provider Family Medicine Geriatric Medicine; Visit Provider Family Medicine Geriatric Medicine
DX: M54.50 Low back pain, unspecified (principal)
CPT/HCPCS: 72110

== ENCOUNTER → 2024-09-06 | Outpatient (CLI) | payer OTHER, SELFPAY | END | disposition home or self-care (01) | LOC: LABSPEC 18:22 | PROVIDERS: PCP Family Medicine Geriatric Medicine; Visit Provider Family Medicine Geriatric Medicine | DX: R05.9 Cough, unspecified (principal); R06.2 Wheezing | CPT/HCPCS: 87631 ==

== ENCOUNTER → 2024-09-25 | Outpatient (CLI) | payer OTHER, SELFPAY | END | disposition home or self-care (01) | LOC: LAB 10:20 | PROVIDERS: PCP Family Medicine Geriatric Medicine; Referring Provider Family Medicine Geriatric Medicine; Visit Provider Family Medicine Geriatric Medicine | DX: E03.9 Hypothyroidism, unspecified (principal) | CPT/HCPCS: 36415; 84443 ==

== ENCOUNTER 2024-10-07 17:30 | Outpatient (RCR) | payer OTHER, SELFPAY ==
--- NOTE | 2024-08-24 16:49 | HP.PTEVAL_ITS ---
Patient's Visit Information Visit Information Visit Information: DADA SOLO is a 58 year old M referred to Physical Therapy by Dr. Robbi Turner MD with a diagnosis of LBP. Date of Evaluation: 08/24/24 Physical Therapist: Carmine Landaverde, DPT, OCS, CSCS Visit Plan Frequency: 2x /Week Duration: 4-6 Weeks Plan: 2x/week x 3-6 IE HEP PPU 15x every 2 days, posture with towel roll, avoid excessive sitting, avoid forward bending of spine. Please treat with ext bias ROM including progression to PA mobs as needed, may need to go to L SGIS if deviation continues with ext. Progress to lumbar ROM and core strength to HEP when improved. May use TENS and ice if painful, STM paraspinals Subjective Subjective: LBP B and into legs and makes feet go numb for a couple weeks now. Hurts both knees. Has been happening 3-4 weeks. Wakes him up at night. No previous back problems. Worse at night, sitting makes him worse. Walking too far makes him worse 1/4 mile. Lies down adn feels better. Hard to get comfortable sitting. 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 Worse getting out of chair, uses arms to get up from chair. Morning is worse and hard to get up. Basic ADLs getting done slowly painfully. Exercises none. Has 10 acres and cuts firewood and splitting firewood when healthy. Pain LBP: Pain Intensity (Out of 10): 2 Pain Intensity Range: 0 and 8 Objective Objective: Walks into PT I without gait deviations. sits leaning to R offloading L spine. Flat lordosis in posture, kyphotic T/S Lumbar AROM deviates R with ext and mod limtied, flexion full, L SB painfu, R not painful, L limited. reflexes 2/3 patella and achilles sensaiton LE WNl to gross light touch. Strength: 4+, no myotomal abnormalities. core strength 4/5 abs and 4- extension. repeated eil 10x NE but better L SB, PDM repeated L SGIS: NO PDM, better ext ROM. Balance/Special Test Scores Oswestry Low Back Score: 16 Goals Goal 1:: Sleep without waking at night for 2 weeks Goal Time Frame: 4-6 Weeks Goal 2:: I appropriate HEP for strength, ROM and body mechanics/posture to limit future problems. Goal Time Frame: 4-6 Weeks Goal 3:: full lumbar ROM without deviations Goal Time Frame: 4-6 Weeks Goal 4:: Pain in LB and leg symptoms 80% better adn 1/10 at worst. Goal Time Frame: 4-6 Weeks Goal 5:: oswestry score 5 or better. Goal Time Frame: 4-6 Weeks Rehabilitation Potential Physical Therapy Diagnosis: limited ROM and strength and postural abnormalities causing LB and leg symptoms. Rehabilitation Potential: Fair Anticipated Interventions Patient/Client Instruction: Educate patient on: Condition and Plan of Care For the Purpose of:: To decrease pain, To increase ROM, To improve nutrient delivery to tissue, To increase tolerance to activity/condition/position and To improve ability of physical actions for home/community/work/leisure Therapeutic Exercise to Include: Strength training, Postural training, Passive ROM, Active ROM, Dynamic Lumbar Stabilization and Sae Exercises For the Purpose of:: To decrease pain, To increase ROM, To improve nutrient delivery to tissue, To improve muscle performance and motor function, To increase tolerance to activity/condition/position, To improve performance and independence with ADL's and To improve ability of physical actions for home/community/work/leisure Manual Therapy Techniques to Include: Mobilization, Passive ROM and Soft tissue mobilization For the Purpose of:: To decrease pain, To increase ROM, To improve nutrient delivery to tissue and To improve muscle performance and motor function TENS: Yes Cryotherapy (ice pack, ice massage): Yes For the Purpose of:: To decrease pain and To improve nutrient delivery to tissue Text: Thank you for the opportunity to evaluate your patient. For Medicare and Medicare HMO plans, please review the plan of care and approve it. It will need to be FAXED BACK to us at [phone] for Medicare purposes. For Medicare only, by signing this I certify the plan of care. Please let me know if there are questions or concerns regarding this plan of care. Physician Signature: Date:
--- NOTE | 2024-10-07 17:41 | HP.PTDCSUM ---
Discharge Summary D/C summary: It has been my pleasure to treat DADA SOLO referred by Dr. Robbi Turner MD, with the diagnosis of LBP for a total of 6 visit(s). Discharge Date: 10/07/24 Please see the following information for a summary of their discharge status. Subjective Subjective: No pain today. overdid jogging and knees hurt. Back tolerated well. Sagastume gets him at 3 am at times. Takes ibuprofen and it goes away. Intermittent without reason. HEP exercises daily, does them every other day or so. Will continue ex via HEP. Dr. Turner in October for normal follow up. Pain LBP: Pain Intensity (Out of 10): 4 Overall Improvement % Improvement: 100 Objective Objective/Function: Full Lumbar ROM without pain today. walks normal and feeling better. Feels able to manage with HEP from here on out. sagastume pain more intermittent and maangeable with meds. Goals Goal 1:: Sleep without waking at night for 2 weeks Goal Progress: Goal Met Goal 2:: I appropriate HEP for strength, ROM and body mechanics/posture to limit future problems. Goal Progress: Goal Met Goal 3:: full lumbar ROM without deviations Goal Progress: Goal Met Goal 4:: Pain in LB and leg symptoms 80% better adn 1/10 at worst. Goal Progress: Goal Met Goal 5:: oswestry score 5 or better. Goal Progress: Progressing Plan Plan: d/c to HEP D/C Information d/c sentence: If there are questions or concerns regarding this patient's physical therapy, please feel free to call me at [phone]. Thank you for the referral of this patient. Sincerely, Carmine Landaverde, DPT, OCS, CSCS Balance/Gait/Functional tests Balance/Special Test Scores Oswestry Low Back Score: 11 Improvement % Improvement: 100
== END 2024-10-07 19:00 | disposition home or self-care (01) ==
LOC: PT 17:30
PROVIDERS: PCP Family Medicine Geriatric Medicine; Referring Provider Family Medicine Geriatric Medicine; Visit Provider Family Medicine Geriatric Medicine
DX: M54.50 Low back pain, unspecified (principal)
CPT/HCPCS: 97110; 97161; 97530

== ENCOUNTER → 2024-11-15 | Outpatient (CLI) | payer OTHER, SELFPAY ==
[2024-11-15 10:42] LABS: Absolute Lymphocyte Count 1.16 X10^3/uL (0.83-4.51); Absolute Neutrophil Count 7.9 X10^3/uL (2.0-7.7); Basophil# 0.07 X10^3/uL; Basophil% 0.7 % (0-1); Eosinophil# 0.36 X10^3/uL; Eosinophils% 3.5 % (0-5); Hematocrit 45.4 % (40-54); Hemoglobin 15.1 g/dL (13.0-16.5); Lymphocyte # 1.16 X10^3/ul (0.83-4.51); Lymphocyte % 11.4 % (19-41); Mean Corp Hgb Conc 33.3 g/dL (32-36); Mean Corpuscular Hgb 31.4 pg (27.0-32.0); Mean Corpuscular Volume 94.4 fL (80-94); Mean Platelet Vol. 10.3 fl (6.2-12.0); Monocyte# 0.69 X10^3/uL; Monocyte% 6.8 % (0-10); NRBC Flagged by Analyzer 0 % (0-5); Neutrophil % 77.2 % (47-70); Platelet Count 281 K/mm3 (150-450); RBC Distribution Width CV 13.3 % (11.6-14.6); RBC Distribution Width SD 46.6 fl (35.1-43.9); Red Blood Count 4.81 M/mm3 (4.6-6.2); White Blood Count 10.2 K/mm3 (4.4-11.0)
[2024-11-15 12:19] LABS: ALB/GLOB Ratio 1.7 RATIO (0.9-2.4); AST(SGOT) 26 U/L (<=37); Alanine Aminotransfer ALT/SGPT 48 U/L (<=46); Albumin, Serum 4.4 g/dL (3.5-5.0); Alkaline Phosphatase 98 U/L (40-129); Anion Gap 11 (5-15); BUN 15 mg/dL (4-19); BUN/Creat Ratio 10.3 RATIO (10-20); Calcium,Total 9.5 mg/dL (7.6-11.0); Carbon Dioxide 25.1 mmol/L (21.0-32.0); Chloride 105 mmol/L (98-108); Cholesterol 164 mg/dL (<=200); Creatinine, Serum 1.47 mg/dL (0.70-1.20); EST Glomerular Filtration Rate 55 (>60); Globulin 2.5 g/dL (2.2-4.2); Glucose 109 mg/dL (70-99); High Density Lipoprotein 54 mg/dL; Low Density Lipoprotein Calc. 82 mg/dL; Potassium 4.1 mmol/L (3.3-5.1); Protein, Total 6.9 g/dL (5.9-8.4); Sodium Level 141 mmol/L (133-145); Total Bilirubin 0.64 mg/dL (0.00-1.30); Triglycerides 141 mg/dL; Very Low Density Lipoprotein 28 mg/dL (5-40); cholesterol:hdl ratio screen 3.04
[2024-11-15 12:20] LABS: PSA,Total - Annual Screen 0.53 ng/mL (0.02-4.00); Thyroid Stim Hormone (TSH) 0.158 uIU/mL (0.300-4.200)
--- OUTSIDE RECORDS SUMMARY | 2024-11-15 21:37 | XMS RPT_ITS | CCD ---
Author Organization [facility] Care Team Providers Care Paraffiner Name Role Phone Med Chand Unavailable Unavailable Med Chand Unavailable Unavailable Darlyn, Neel Chi Unavailable Unavailable Jolly MATHEWS, Roby Agarwal Unavailable Darlyn, Dr. Neel Rasmussen Primary Care Provider 1([facility])[phone] Dr. Carmine Fang Attending Provider 1([facility])[phone] Darlyn MATHEWS, Norman Primary Care Provider 1([facility])[phone] LOGAN GRIFFIN Attending Unavailable DARLYN, NEEL-CHI Primary Care Unavailable Darlyn, Dr. Neel Rasmussen Primary Care Provider 1([facility])[phone] Darlyn, Dr. Neel Rasmussen Referring Provider Dr. Miguel Petty Attending Provider 1([facility])[phone] Dr. Jesus Zuñiga Attending Provider 1([facility])[phone] Darlyn MATHEWS, Dr. Neel Rasmussen Primary Care Provider Darlyn MATHEWS, Dr. Neel Rasmussen Attending Provider 1([facility])[phone] Darlyn MATHEWS, Dr. Neel Rasmussen Referring Provider 1([facility])[phone] Darlyn MATHEWS, Dr. Neel Rasmussen Primary Care Provider Darlyn MATHEWS, Dr. Neel Rasmussen Attending Provider Darlyn MATHEWS, Dr. Neel Rasmussen Referring Provider [phone] Darlyn, Neel Chi Attending Unavailable Darlyn, Neel Chi Referring Unavailable Darlyn, Neel Chi Primary Care Unavailable Darlyn, Neel Chi Attending Unavailable Darlyn, Neel Chi Referring Unavailable Dalryn, Neel Chi Primary Care Unavailable Darlyn, Neel Chi Attending Unavailable Darlyn, Neel Chi Primary Care Unavailable Darlyn, Neel Chi Attending Unavailable Darlyn, Neel Chi Referring Unavailable Darlyn, Neel Chi Primary Care Unavailable Darlyn, Neel Chi Attending Unavailable Darlyn, Neel Chi Referring Unavailable Darlyn, Neel Chi Primary Care Unavailable Darlyn, Neel Chi Attending Unavailable Darlyn, Neel Chi Referring Unavailable Darlyn, Neel Chi Primary Care Unavailable Gail Torres Attending Unavailabl e Darlyn, Neel Chi Referring Unavailable Darlyn, Neel Chi Primary Care Unavailable NagajothiHaapradee Attending Unavailabl e Darlyn, Neel Chi Referring Unavailable Darlyn, Neel Chi Primary Care Unavailable Darlyn, Neel Chi Consulting Unavailable Darlyn, Neel Chi Attending Unavailable Darlyn, Neel Chi Referring Unavailable Darlyn, Neel Chi Primary Care Unavailable Darlyn, Neel Chi Primary Care Unavailable Darlyn, Neel Chi Attending Unavailable Darlyn, Neel Chi Referring Unavailable Darlyn, Neel Chi Primary Care Unavailable Darlyn, Neel Chi Attending Unavailable Darlny, Neel Chi Referring Unavailable Darlyn, Neel Chi Primary Care Unavailable Darlyn, Neel Chi Attending Unavailable Darlyn, Neel Chi Referring Unavailable Allergies Allergy Classification Reported Allergen(s) Allergy Type Date of Onset Reaction(s) Facility (17 sources) amLODIPine Drug Allergy 1 edema and syncope [facility] (1 source) amLODIPine Drug Allergy 4 [facility] Repository Medications Current Medications Medication Drug Class(es) Dates Sig (Normalized) Sig (Original) acyclovir 400 mg oral tablet (17 sources) Herpesvirus Nucleoside Analog DNA Polymerase Inhibitor, Herpes Simplex Virus Nucleoside Analog DNA Polymerase Inhibitor, Herpes Zoster Virus Nucleoside Analog DNA Polymerase Inhibitor Start: 01-13-2019 take 1 tablet by mouth every other day Acyclovir 400 mg tablet Active 1 {tbl} PO EVERY OTHER DAY 60 January 13, 2019 12:00am aspirin 81 mg delayed release oral tablet (17 sources) Platelet Aggregation Inhibitor, Nonsteroidal Anti-inflammatory Drug Start: 01-20-2019 take 1 tablet by mouth once daily Aspirin (Adult Aspirin Regimen) 81 mg tablet,delayed release (DR/EC) Active 81 mg PO DAILY January 20, 2019 12:00am atorvastatin 40 mg oral tablet (17 sources) HMG-CoA Reductase Inhibitor Start: 01-09-2019 take 1 tablet by mouth at bedtime Atorvastatin 40 MG tablet Active 40 mg PO AT BEDTIME January 09, 2019 12:00am levothyroxine sodium 0.175 mg oral capsule (20 sources) l-Thyroxine Start: 08-06-2023 take 1 capsule by mouth once daily Levothyroxine 175 mcg capsule Active 175 ug PO DAILY August 06, 2023 12:00am Start: 01-04-2019 End: 08-06-2023 take 1 tablet by mouth once daily Levothyroxine 150 MCG tablet Discontinued 150 ug PO DAILY January 04, 2019 12:00am August 06, 2023 8:50am oxygen (O2) therapy (1 source) Start: 07-14-2023 oxygen (O2) therapy pantoprazole 40 mg delayed release oral tablet (17 sources) Proton Pump Inhibitor Start: 08-08-2020 take 1 tablet by mouth once daily Pantoprazole 40 mg tablet,delayed release (DR/EC) Active 40 mg PO DAILY August 08, 2020 12:00am tamsulosin hydrochloride 0.4 mg oral capsule (7 sources) alpha-Adrenergic Sulema Start: 08-06-2023 take 1 capsule by mouth once daily Tamsulosin 0.4 mg capsule Active 0.4 mg PO DAILY August 06, 2023 12:00am ubidecarenone 75 mg oral capsule (7 sources) Start: 08-06-2023 Coenzyme Q10 (Ultra Coq10) 75 mg capsule Active 75 mg PO DAILY August 06, 2023 12:00am Completed/Discontinued Medications Medication Drug Class(es) Dates Sig (Normalized) Sig (Original) amLODIPine 10 mg oral tablet (20 sources) Dihydropyridine Calcium Channel Sulema Start: 02-01-2019 End: 08-08-2020 take 1 tablet by mouth once daily Amlodipine 10 mg tablet Discontinued 10 mg PO DAILY February 01, 2019 12:00am August 08, 2020 4:11pm Start: 01-20-2019 End: 02-01-2019 take 1 tablet by mouth once daily Amlodipine 5 mg tablet Discontinued 5 mg PO DAILY January 20, 2019 12:00am February 01, 2019 11:00am baclofen 10 mg oral tablet (1 source) gamma-Aminobutyric Acid-ergic Agonist Start: 08-09-2019 BACLOFEN 10 MG TABS one tablet daily BACLOFEN [id number] Rosa Maria Diestaryn METAL COATER diclofenac sodium 25 mg delayed release oral tablet (1 source) Nonsteroidal Anti-inflammatory Drug Start: 08-09-2019 DICLOFENAC SODIUM 25 MG TBEC one tablet twice daily DICLOFENAC SODIUM [id number] Rosa Maria Ferguson METAL COATER furosemide 20 mg oral tablet (1 source) Loop Diuretic Start: 08-09-2019 LASIX 20 MG TABS one tablet daily FUROSEMIDE [id number] Rosa Maria Ferguson LPN lisinopril 10 mg oral tablet (20 sources) Angiotensin Converting Enzyme Inhibitor Start: 02-24-2019 End: 08-06-2023 take 1 tablet by mouth once daily Lisinopril 10 mg tablet Discontinued 10 mg PO DAILY February 25, 2019 9:19am August 06, 2023 8:51am metoprolol tartrate 25 mg oral tablet (17 sources) beta-Adrenergic Sulema Start: 01-20-2019 End: 02-01-2019 take 1 tablet by mouth twice daily Metoprolol Tartrate 25 mg tablet Discontinued 25 mg PO TWICE A DAY 60 January 20, 2019 12:00am February 01, 2019 11:02am omeprazole 20 mg delayed release oral capsule (20 sources) Proton Pump Inhibitor Start: 01-13-2019 End: 08-08-2020 take 1 capsule by mouth once daily Omeprazole 20 mg capsule,delayed release(DR/EC) Discontinued 20 mg PO DAILY January 13, 2019 12:00am August 08, 2020 4:10pm Start: 01-04-2019 End: 01-13-2019 take 1 capsule by mouth once daily Omeprazole 10 MG capsule Discontinued 10 mg PO DAILY January 04, 2019 12:00am January 13, 2019 9:30pm predniSONE 10 mg oral tablet (1 source) Start: 08-09-2019 PREDNISONE 10 MG TABS titer as prescribed by family physician PREDNISONE [id number] Rosa Maria Ferguson LPN 1000 ml sodium chloride 9 mg /ml injection (1 source) Start: 07-14-2023 End: 07-14-2023 sodium chloride 0.9 % bolus 1,000 mL Problems Active Problems Problem Classification Problem Date Documented Da te Episodic/Chronic Conditions associated with dizziness or vertigo (17 sources) Lightheadedness; Translations: [Dizziness and giddiness] 08-05-2020 Episodic Disorders of lipid metabolism (17 sources) Hyperlipidemia; Translations: [Hyperlipidemia, unspecified] 02-01-2019 Chronic Essential hypertension (18 sources) Essential hypertension; Translations: [Essential (primary) hypertension] Onset: 06-22-2024 02-01-2019 Chronic Fluid and electrolyte disorders (3 sources) Hypovolemia; Translations: [Volume depletion, unspecified] Onset: 07-14-2023 07-14-2023 Episodic Other and ill-defined heart disease (1 source) Other ill-defined heart diseases; Translations: [Other ill-defined heart diseases] Onset: 10-24-2023 Chronic Other connective tissue disease (1 source) Palmar fascial fibromatosis [Dupuytren]; Translations: [Palmar fascial fibromatosis [Dupuytren]] Onset: 08-21-2019 08-21-2019 Episodic Other lower respiratory disease (17 sources) Pleuritic pain; Translations: [Pleurodynia] 08-05-2020 Episodic Other lower respiratory disease (17 sources) Dyspnea; Translations: [Dyspnea, unspecified] 08-05-2020 Episodic Other lower respiratory disease (17 sources) Chest pain on breathing; Translations: [Chest pain on breathing] 08-05-2020 Episodic Syncope (13 sources) Syncope; Translations: [Syncope and collapse] Onset: 07-14-2023 07-14-2023 Episodic Comment on above: The patient's sympto ms and observation by the nurse in the restaurant suggest that it was probably vasovagal in etiology. He has had negative neurologic workup with negative CTA of the head and negative MRI/MRA.An EEG is pending as well as carotid ultrasounds. The patient does not have any obvious physical findings of structural heart disease or low cardiac output syndrome. Back his blood pressure is elevated in the office today reports this is episodic and normally runs in the 120/80 range at home. Thyroid disorders (1 source) Hypothyroidism, unspecified; Translations: [Hypothyroidism, unspecified] Onset: 09-30-2024 Chronic Unclassified (1 source) Cough, unspecified; Translations: [Cough, unspecified] Onset: 09-09-2024 Unclassified (1 source) Low back pain, unspecified; Translations: [Low back pain, unspecified] Onset: 08-20-2024 Past or Other Problems Problem Classification Problem Date Documented Da te Episodic/Chronic Nonspecific chest pain (18 sources) Chest pain; Translations: [Chest pain, unspecified] Onset: 10-24-2023 02-01-2019 Episodic Unclassified (1 source) Problem Results Test Name Value Interpretation Reference Range Facility PT D/C Summary (1)on 025 PT D/C Summary (1) [facility] [address] [place] [address]. [address] [place] [address] / REHABILITATION SERVICES DISCHARGE SUMMARY MR#: [id number] Acct: [id number] Name: DADA SOLO Rep #: [id number] : 1965 59 From: Carmine PALMAT, OCS, CSCS Referring Dr.: Dr. Neel Turner MD Status: REG RCR Insurance: [facility] [employer] [facility]Y INSURANCE Discharge Summary D/C summary: It has been my pleasure to treat DADA SOLO referred by Dr. Neel Turner MD, with the diagnosis of LBP for a total of 6 visit(s). Discharge Date: 10/07/24 Please see the following information for a summary of their discharge status. Subjective Subjective: No pain today. overdid jogging and knees hurt. Back tolerated well. Wise gets him at 3 am at times. Takes ibuprofen and it goes away. Intermittent without reason. HEP exercises daily, does them every other day or so. Will continue ex via HEP. Dr. Turner in October for normal follow up. Pain LBP: Pain Intensity (Out of 10): 4 Overall Improvement % Improvement: 100 Objective Objective/Function: Full Lumbar ROM without pain today. walks normal and feeling better. Feels able to manage with HEP from here on out. wise pain more intermittent and maangeable with meds. Goals Goal 1:: Sleep without waking at night for 2 weeks Goal Progress: Goal Met Goal 2:: I appropriate HEP for strength, ROM and body mechanics/posture to limit future problems. Goal Progress: Goal Met Goal 3:: full lumbar ROM without deviations Goal Progress: Goal Met Goal 4:: Pain in LB and leg symptoms 80% better adn 1/10 at worst. Goal Progress: Goal Met Goal 5:: oswestry score 5 or better. Goal Progress: Progressing Plan Plan: d/c to HEP D/C Information d/c sentence: If there are questions or concerns regarding this patient's physical therapy, please feel free to call me at [phone]. Thank you for the referral of this patient. Sincerely, Carmine Landaverde DPT, OCS, CSCS Balance/Gait/Functi onal tests Balance/Special Test Scores Oswestry Low Back Score: 11 Improvement % Improvement: 100 10/07/24 1741 CC: Dr. Neel Turner MD EBG Signed Normal [facility] TSH DL <= 0.005 mIU/L QnOrde red By: Neel Turner on 09-25-2024 TSH Qn 2.470 uIU/mL 0.300-4.200 [facility] Thyroid Stim Hormone (TSH)on 09-25-2024 TSH 2.470 uIU/mL Normal 0.300-4.200 [facility] Comment on above: Performed By: #### L 501.9520 #### [facility] [address] [place], [place], [id number] Influenza virus A and B and SARS-CoV-2 (COVID-19) and Respiratory syncytial virus RNAOrdered By: Neel Turner on 09-06-2024 SARS-CoV-2 (COVID-19) RNA COSTA+probe Ql (Unsp spec) [facility] M100.678on 09-06-2024 M100.678 Pending SARS-CoV-2 (COVID 19) Negative INFLUENZA A Negative INFLUENZA B Negative RSV PCR Negative Normal [facility] Comment on above: Performed By: #### M 100.678 ####[facility] [id number] [place], [place], [id number] Inital Evaluation (1) - PTon 08-24-2024 Inital Evaluation (1) - PT [facility] Physical Therapy [facility] [place] [address] / REHABILITATION SERVICES INITIAL EVALUATION MR#: [id number] Acct: [id number] Name: DADA SOLO Rep #: [id number] : 1965 58 From: Carmine Landaverde DPT, OCS, CSCS Referring Dr.: Dr. Neel Turner MD Status: REG RCR Insurance: [facility] [employer] PAY INSURANCE Patient's Visit Information Visit Information Visit Information: DADA SOLO is a 58 year old M referred to Physical Therapy by Dr. Neel Turner MD with a diagnosis of LBP. Date of Evaluation: 08/24/24 Physical Therapist: Carmine Landaverde, CHET, OCS, CSCS Visit Plan Frequency: 2x /Week Duration: 4-6 Weeks Plan: 2x/week x 3-6 IE HEP PPU 15x every 2 days, posture with towel roll, avoid excessive sitting, avoid forward bending of spine. Please treat with ext bias ROM including progression to PA mobs as needed, may need to go to L SGIS if deviation continues with ext. Progress to lumbar ROM and core strength to HEP when improved. May use TENS and ice if painful, STM paraspinals Subjective Subjective: LBP B and into legs and makes feet go numb for a couple weeks now. Hurts both knees. Has been happening 3-4 weeks. Wakes him up at night. No previous back problems. Worse at night, sitting makes him worse. Walking too far makes him worse 1/4 mile. Lies down adn feels better. Hard to get comfortable sitting. 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 Worse getting out of chair, uses arms to get up from chair. Morning is worse and hard to get up. Basic ADLs getting done slowly painfully. Exercises none. Has 10 acres and cuts firewood and splitting firewood when healthy. Pain LBP: Pain Intensity (Out of 10): 2 Pain Intensity Range: 0 and 8 Objective Objective: Walks into PT I without gait deviations. sits leaning to R offloading L spine. Flat lordosis in posture, kyphotic T/S Lumbar AROM deviates R with ext and mod limtied, flexion full, L SB painfu, R not painful, L limited. reflexes 2/3 patella and achilles sensaiton LE WNl to gross light touch. Strength: 4+, no myotomal abnormalities. core strength 4/5 abs and 4- extension. repeated eil 10x NE but better L SB, PDM repeated L SGIS: NO PDM, better ext ROM. Balance/Special Test Scores Oswestry Low Back Score: 16 Goals Goal 1:: Sleep without waking at night for 2 weeks Goal Time Frame: 4-6 Weeks Goal 2:: I appropriate HEP for strength, ROM and body mechanics/posture to limit future problems. Goal Time Frame: 4-6 Weeks Goal 3:: full lumbar ROM without deviations Goal Time Frame: 4-6 Weeks Goal 4:: Pain in LB and leg symptoms 80% better adn 1/10 at worst. Goal Time Frame: 4-6 Weeks Goal 5:: oswestry score 5 or better. Goal Time Frame: 4-6 Weeks Rehabilitation Potential Physical Therapy Diagnosis: limited ROM and strength and postural abnormalities causing LB and leg symptoms. Rehabilitation Potential: Fair Anticipated Interventions Patient/Client Instruction: Educate patient on: Condition and Plan of Care For the Purpose of:: To decrease pain, To increase ROM, To improve nutrient delivery to tissue, To increase tolerance to activity/condition/ position and To improve ability of physical actions for home/community/work /leisure Therapeutic Exercise to Include: Strength training, Postural training, Passive ROM, Active ROM, Dynamic Lumbar Stabilization and Sae Exercises For the Purpose of:: To decrease pain, To increase ROM, To improve nutrient delivery to tissue, To improve muscle performance and motor function, To increase tolerance to activity/condition/ position, To improve performance and independence with ADL's and To improve ability of physical actions for home/community/work /leisure Manual Therapy Techniques to Include: Mobilization, Passive ROM and Soft tissue mobilization For the Purpose of:: To decrease pain, To increase ROM, To improve nutrient delivery to tissue and To improve muscle performance and motor function TENS: Yes Cryotherapy (ice pack, ice massage): Yes For the Purpose of:: To decrease pain and To improve nutrient delivery to tissue Text: Thank you for the opportunity to evaluate your patient. For Medicare and Medicare HMO plans, please review the plan of care and approve it. It will need to be FAXED BACK to us at [phone] for Medicare purposes. For Medicare only, by signing this I certify the plan of care. Please let me know if there are questions or concerns regarding this plan of care. Physician Signature: __Date: 08/24/24 1649 CC: Dr. Neel Turner MD EBG Signed Normal [facility] L/S Spine Min 4 Viewson 07-25 L/S Spine Min 4 Views [facility] [address] [place], [place] [address] L/S Spine Min 4 Views MR#: [id number] Acct: [id number] Name: DADA SOLO Rep #: [id number] : 1965 M 58 From: Soto Balderrama MD PCP: Dr. Neel Turner MD Status: REG CLI Study: L/S Spine Min 4 Views Date of Exam: 08/13/24 Exam# [id number] Ordering Dr: Neel Turner MD EXAM: XR Lumbosacral Spine, 4 or 5 Views CLINICAL INDICATION: LOW BACK PAIN TECHNIQUE: Frontal, lateral and bilateral oblique views of the lumbar spine. COMPARISON: No relevant prior studies available. FINDINGS: VERTEBRAE: Moderate facet arthropathy of L4 to S1. No acute fracture. Normal alignment. SACRUM/COCCYX: Unremarkable as visualized. No acute fracture. DISC SPACES: No acute findings. No significant narrowing. SOFT TISSUES: Unremarkable. RAD/L/S Spine Min 4 Views IMPRESSION: Degenerative changes as above. Reading [facility] CC: Dr. Neel Turner MD Day Care Attendant: Signed Normal [facility] Serum or plasma thyroid stim ulating hormone (TSH) measurement (units/volume)Ordered By: Neel Turner on 07-16-2024 TSH Qn 0.196 uIU/mL Low 0.358-3.740 [facility] TSH QnOrdered By: Neel Turner o n 07-16-2024 Thyroid Stimulating Hormone (TSH) 0.196 uIU/mL Low 0.358-3.740 [facility] Thyroid Stim Hormone (TSH)on 07-16-2024 TSH 0.196 uIU/mL Low 0.358-3.740 [facility] Comment on above: Performed By: #### L 501.9520 #### [facility] [address] [place], [place], [address] Absolute neutrophil countOrd ered By: Neel Turner on 05-28-2024 Neutrophils (Bld) [#/Vol] 3.6 10*3/uL 2.0-7.7 [facility] Albumin to globulin ratioOrd ered By: Neel Turner on 05-28-2024 Albumin/Globulin [Mass ratio] 1.3 {ratio} 0.9-2.4 [facility] Automated blood erythrocyte countOrdered By: Neel Turner on 05-28-2024 RBC (Bld) [#/Vol] 4.84 10*6/uL Normal 4.6-6.2 [facility] Comment on above: Performed By: #### L 500.4050, L100.0100, L501.9520, L500.4100 #### [facility] [address] [place], [place], [id number] Automated blood hematocrit ( percentage)Ordered By: Neel Darlyn on 05-28-2024 Hematocrit (Bld) [Volume fraction] 45.2 % Normal 40-54 [facility] Comment on above: Performed By: #### L 500.4050, L100.0100, L501.9520, L500.4100 #### [facility] [address] [place], [place], [address] Automated lymphocyte count a s percentage of total leukocytesOrdered By: Nele Darlyn on 05-28-2024 Lymphocytes/100 WBC (Bld) 24.3 % Normal 19-41 [facility] Comment on above: Performed By: #### L 500.4050, L100.0100, L501.9520, L500.4100 #### [facility] [address] [place], [address] Basophil percentageOrdered B y: Neel Darlyn on 05-28-2024 Basophils/100 WBC (Bld) 1.6 % High 0-1 [facility] Comment on above: Performed By: #### L 500.4050, L100.0100, L501.9520, L500.4100 #### [facility] [address] [place], [address] Bilirubin, totalOrdered By: Neel Turner on 05-28-2024 Bilirubin [Mass/Vol] 0.80 mg/dL 0.20-1.00 [facility] Comment on above: For patients on eltr ombopag therapy, use of Dimension [place] TBIL is not recommended. Blood urea nitrogen (BUN)/cr eatinine ratioOrdered By: Neel Turner on 05-28-2024 Urea nitrogen/Creatinine [Mass ratio] 9.2 mg/mg Low 10-20 [facility] CBC W/Diff, Automatedon Absolute Lymph 1.63 X10 3/uL Normal 0.83-4.51 [facility] Comment on above: Performed By: #### L 500.4050, L100.0100, L501.9520, L500.4100 #### [facility] [address] [place], [address] Absolute Neut 3.6 X10 3/uL Normal 2.0-7.7 [facility] Comment on above: Performed By: #### L 500.4050, L100.0100, L501.9520, L500.4100 #### [facility] [address] [place], [address] IG% 0.400 Normal 0.0-0.9 [facility] Comment on above: Result Comment: IG% - Immature Granulocytes (promyelocytes, myelocytes and metamyelocytes) > 1% indicates that a LEFT SHIFT is Present. Performed By: #### L 500.4050, L100.0100, L501.9520, L500.4100 #### [facility] [address] [place], [address] Nucleated RBC (Bld) [#/Vol] 0 10*3/uL Normal 0-5 [facility] Comment on above: Performed By: #### L 500.4050, L100.0100, L501.9520, L500.4100 #### [facility] [address] [place], [address] RDW SD 44.9 fl High 35.1-43.9 [facility] Comment on above: Performed By: #### L 500.4050, L100.0100, L501.9520, L500.4100 #### [facility] [address] [place], [address] Carbon dioxide measurementOr dered By: Neel Turner on 05-28-2024 CO2 [Moles/Vol] 30.0 mmol/L 21.0-32.0 [facility] Chloride measurementOrdered By: Neel Turner on 05-28-2024 Chloride [Moles/Vol] 107 mmol/L 98-107 [facility] Comprehensive Metabolic Prof ilon 05-28-2024 Albumin [Mass/Vol] 4.0 g/dL Normal 3.2-5.0 [facility] Comment on above: Performed By: #### L 500.4050, L100.0100, L501.9520, L500.4100 #### [facility] [address] [place], [address] Albumin/Globulin [Mass ratio] 1.3 {ratio} Normal 0.9-2.4 [facility] Comment on above: Performed By: #### L 500.4050, L100.0100, L501.9520, L500.4100 #### [facility] [address] [place], [address] ALK P 117 U/L Normal 45-117 [facility] Comment on above: Performed By: #### L 500.4050, L100.0100, L501.9520, L500.4100 #### [facility] [address] [place], [address] ALT [Catalytic activity/Vol] 47 U/L Normal 16-61 [facility] Comment on above: Performed By: #### L 500.4050, L100.0100, L501.9520, L500.4100 #### [facility] [address] [place], [address] AST [Catalytic activity/Vol] 29 U/L Normal 15-37 [facility] Comment on above: Performed By: #### L 500.4050, L100.0100, L501.9520, L500.4100 #### [facility] [address] [place], [address] Bilirubin [Mass/Vol] 0.80 mg/dL Normal 0.20-1.00 [facility] Comment on above: Result Comment: For patients on eltrombopag therapy, use of Dimension [place] TBIL is not recommended. Performed By: #### L 500.4050, L100.0100, L501.9520, L500.4100 #### [facility] [address] [place], [address] BUN/CRE 9.2 RATIO Low 10-20 [facility] Comment on above: Performed By: #### L 500.4050, L100.0100, L501.9520, L500.4100 #### [facility] [address] [place], [address] CA,Total 8.7 mg/dL Normal 8.5-10.1 [facility] Comment on above: Performed By: #### L 500.4050, L100.0100, L501.9520, L500.4100 #### [facility] [address] [place], [address] Chloride [Moles/Vol] 107 mmol/L Normal 98-107 [facility] Comment on above: Performed By: #### L 500.4050, L100.0100, L501.9520, L500.4100 #### [facility] [address] [place], [address] CO2 [Moles/Vol] 30.0 mmol/L Normal 21.0-32.0 [facility] Comment on above: Performed By: #### L 500.4050, L100.0100, L501.9520, L500.4100 #### [facility] [address] [place], [address] Creatinine [Mass/Vol] 1.20 mg/dL Normal 0.70-1.30 [facility] Comment on above: Result Comment: The validity of the calculated GFR GFRAA in patients over 70 years has not been determined. Clinical correlation is essential. Performed By: #### L 500.4050, L100.0100, L501.9520, L500.4100 #### [facility] [address] [place], [address] EST GFR - AA 80 mL/min Normal >60 [facility] Comment on above: Result Comment: Afri can Russian GFR Calc Performed By: #### L 500.4050, L100.0100, L501.9520, L500.4100 #### [facility] [address] [place], [address] GAP 2 Low 5-15 [facility] Comment on above: Performed By: #### L 500.4050, L100.0100, L501.9520, L500.4100 #### [facility] [address] [place], [address] GFR/1.73 sq M.predicted among non-blacks MDRD (S/P/Bld) [Vol rate/Area] 66 mL/min/{1.73_m2} Normal >60 [facility] Comment on above: Result Comment: Non- GFR Calc Performed By: #### L 500.4050, L100.0100, L501.9520, L500.4100 #### [facility] [address] [place], [address] Globulin (S) [Mass/Vol] 3.1 g/dL Normal 2.2-4.2 [facility] Comment on above: Performed By: #### L 500.4050, L100.0100, L501.9520, L500.4100 #### [facility] [address] [place], [address] Glucose [Mass/Vol] 109 mg/dL High 74-106 [facility] Comment on above: Result Comment: Fast ing Glucose result from 100 to 125 mg/dL suggests IMPAIRED HOMEOSTASIS per A.D.A. criteria. Performed By: #### L 500.4050, L100.0100, L501.9520, L500.4100 #### [facility] [address] [place], [address] Potassium [Moles/Vol] 4.3 mmol/L Normal 3.5-5.1 [facility] Comment on above: Performed By: #### L 500.4050, L100.0100, L501.9520, L500.4100 #### [facility] [address] [place], [address] Sodium [Moles/Vol] 139 mmol/L Normal 136-145 [facility] Comment on above: Performed By: #### L 500.4050, L100.0100, L501.9520, L500.4100 #### [facility] [address] [place], [address] T PROT 7.1 g/dL Normal 6.4-8.2 [facility] Comment on above: Performed By: #### L 500.4050, L100.0100, L501.9520, L500.4100 #### [facility] [address] [place], [address] Urea nitrogen [Mass/Vol] 11 mg/dL Normal 7-18 [facility] Comment on above: Performed By: #### L 500.4050, L100.0100, L501.9520, L500.4100 #### [facility] [address] [place], [address] Eosinophil percentageOrdered By: Neel Turner on 05-28-2024 Eosinophils/100 WBC (Bld) 10.7 % High 0-5 [facility] Comment on above: Performed By: #### L 500.4050, L100.0100, L501.9520, L500.4100 #### [facility] [address] [place], [address] Erythrocyte distribution wid th ratioOrdered By: Neel Turner on 05-28-2024 Erythrocyte distribution width (RBC) [Ratio] 13.2 % Normal 11.6-14.6 [facility] Comment on above: Performed By: #### L 500.4050, L100.0100, L501.9520, L500.4100 #### [facility] [address] [place], [address] Erythrocyte distribution wid th standard deviationOrdered By: Neel Darlyn on 05-28-2024 Erythrocyte distribution width (RBC) [Entitic vol] 44.9 fL High 35.1-43.9 [facility] Estimated glomerular filtrat ion rate (GFR) AmericanOrdered By: Neel Darlyn on 05-28-2024 Estimated GFR (MDRD) Amer 80 mL/min >60 [facility] Comment on above: GFR Calc Glomerular filtration rate ( GFR) estimationOrdered By: Neel Darlyn on 05-28-2024 Estimated GFR (MDRD) Non-Af Amer 66 mL/min >60 [facility] Comment on above: Non- GFR Calc Glucose measurementOrdered B y: Neel Darlyn on 05-28-2024 Glucose [Mass/Vol] 109 mg/dL High 74-106 [facility] Comment on above: Fasting Glucose resu lt from 100 to 125 mg/dL suggests IMPAIRED HOMEOSTASIS per A.D.A. criteria. Hemoglobin measurementOrdere d By: Neel Turner on 05-28-2024 Hemoglobin (Bld) [Mass/Vol] 15.1 g/dL Normal 13.0-16.5 [facility] Comment on above: Performed By: #### L 500.4050, L100.0100, L501.9520, L500.4100 #### [facility] [address] [place], [address] High density lipoprotein (HD L) measurementOrdered By: Neel Turner on 05-28-2024 Cholesterol in HDL [Mass/Vol] 61 mg/dL >40 [facility] Comment on above: The drugs N-Acetylcy steine and Metamizole may falsely depress this assay. Reference Range HDL <40 mg/dL Low HDL Cholesterol HDL >or= 60 mg/dL High HDL Cholesterol Immature granulocytes/100 WB C Auto (Bld)Ordered By: Neel Turner on 05-28-2024 Immature granulocytes/100 WBC (Bld) 0.400 % 0.0-0.9 [facility] Comment on above: IG% - Immature Granu locytes (promyelocytes, myelocytes and metamyelocytes) > 1% indicates that a LEFT SHIFT is Present. Laboratory - Chemistry and C hemistry - challengeOrdered By: Neel Turner on 05-28-2024 AST [Catalytic activity/Vol] 29 U/L 15-37 [facility] Lipid Profileon 05-28-2024 Cholesterol [Mass/Vol] 178 mg/dL Normal 200 [facility] Comment on above: Result Comment: <200 mg/dL Desirable 200-240 mg/dL Borderline >240 mg/dL High Risk Performed By: #### L 500.4050, L100.0100, L501.9520, L500.4100 #### [facility] [address] [place], [address] Cholesterol in HDL [Mass/Vol] 61 mg/dL Normal [facility] Comment on above: Result Comment: The drugs N-Acetylcysteine and Metamizole may falsely depress this assay. Reference Range HDL <40 mg/dL Low HDL Cholesterol HDL >or= 60 mg/dL High HDL Cholesterol Performed By: #### L 500.4050, L100.0100, L501.9520, L500.4100 #### [facility] [address] [place], [address] Cholesterol in LDL [Mass/Vol] 97 mg/dL Normal 0-130 [facility] Comment on above: Performed By: #### L 500.4050, L100.0100, L501.9520, L500.4100 #### [facility] [address] [place], [address] Cholesterol in VLDL [Mass/Vol] 20 mg/dL Normal 5-40 [facility] Comment on above: Performed By: #### L 500.4050, L100.0100, L501.9520, L500.4100 #### [facility] [address] [place], [address] Triglyceride [Mass/Vol] 101 mg/dL Normal [facility] Comment on above: Result Comment: The drugs N-Acetylcysteine and Metamizole may falsely depress this assay. Serum Triglycerides Reference Interval Normal <150 mg/dL Borderline high 150 - 199 mg/dL High 200 - 499 mg/dL Very High > or = 500 mg/dL Performed By: #### L 500.4050, L100.0100, L501.9520, L500.4100 #### [facility] [address] [place], [address] Low density lipoprotein (LDL ) cholesterol measurementOrdered By: Neel Turner on 05-28-2024 Cholesterol in LDL [Mass/Vol] 97 mg/dL 0-130 [facility] Lymphocytes Auto (Unsp spec) [#/Vol]Ordered By: Neel Turner on 05-28-2024 Lymphocytes (Bld) [#/Vol] 1.63 10*3/uL 0.83-4.5 1 [facility] MCV (mean corpuscular volume ) determinationOrdered By: Neel Turner on 05-28-2024 MCV (RBC) [Entitic vol] 93.4 fL Normal 80-94 [facility] Comment on above: Performed By: #### L 500.4050, L100.0100, L501.9520, L500.4100 #### [facility] [address] [place], [address] Mean corpuscular hemoglobin (MCH) determinationOrdered By: Neel Turner on 05-28-2024 MCH (RBC) [Entitic mass] 31.2 pg Normal 27.0-32.0 [facility] Comment on above: Performed By: #### L 500.4050, L100.0100, L501.9520, L500.4100 #### [facility] [address] [place], [address] Mean corpuscular hemoglobin concentration (MCHC) determinationOrdered By: Neel Turner on 05-28-2024 MCHC (RBC) [Mass/Vol] 33.4 g/dL Normal 32-36 [facility] Comment on above: Performed By: #### L 500.4050, L100.0100, L501.9520, L500.4100 #### [facility] [address] [place], [address] Mean platelet volume determi nationOrdered By: Neel Turner on 05-28-2024 Platelet mean volume (Bld) [Entitic vol] 10.0 fL Normal 6.2-12.0 [facility] Comment on above: Performed By: #### L 500.4050, L100.0100, L501.9520, L500.4100 #### [facility] [address] [place], [address] Monocyte percentageOrdered B y: Neel Turner on 05-28-2024 Monocytes/100 WBC (Bld) 9.7 % Normal 0-10 [facility] Comment on above: Performed By: #### L 500.4050, L100.0100, L501.9520, L500.4100 #### [facility] [address] [place], [address] Neutrophil percentageOrdered By: Neel Turner on 05-28-2024 Neutrophils/100 WBC (Bld) 53.3 % Normal 47-70 [facility] Comment on above: Performed By: #### L 500.4050, L100.0100, L501.9520, L500.4100 #### [facility] [address] [place], [address] Nucleated red blood cell per centageOrdered By: Neel Turner on 05-28-2024 Nucleated RBC/100 WBC (Bld) [Ratio] 0 % 0-5 [facility] Platelet countOrdered By: Chavo Turner on 05-28-2024 Platelets (Bld) [#/Vol] 307 10*3/uL Normal 150-450 [facility] Comment on above: Performed By: #### L 500.4050, L100.0100, L501.9520, L500.4100 #### [facility] [address] [place], [place], [id number] Potassium measurementOrdered By: Neel Turner on 05-28-2024 Potassium [Moles/Vol] 4.3 mmol/L 3.5-5.1 [facility] Serum anion gap measurementO rdered By: Neel Turner on 05-28-2024 Anion gap [Moles/Vol] 2 mmol/L Low 5-15 [facility] Serum globulin measurementOr dered By: Neel Turner 05-28-2024 Globulin (S) [Mass/Vol] 3.1 g/dL 2.2-4.2 [facility] Serum or plasma alanine olea otransferase (ALT) measurementOrdered By: Neel Turner on 05-28-2024 ALT [Catalytic activity/Vol] 47 U/L 16-61 [facility] Serum or plasma albumin breanna urement (mass/volume)Ordered By: Neel Turner 05-28-2024 Albumin [Mass/Vol] 4.0 g/dL 3.2-5.0 [facility] Serum or plasma alkaline benjy sphatase measurementOrdered By: Neel Turner 05-28-2024 ALP [Catalytic activity/Vol] 117 U/L 45-117 [facility] Serum or plasma calcium breanna urement (mass/volume)Ordered By: Neel Turner on 05-28-2024 Calcium [Mass/Vol] 8.7 mg/dL 8.5-10.1 [facility] Serum or plasma cholesterol measurement (mass/volume)Ordered By: Neel Turner on 05-28-2024 Cholesterol [Mass/Vol] 178 mg/dL <200 [facility] Comment on above: <200 mg/dL Desirable 200-240 mg/dL Borderline >240 mg/dL High Risk Serum or plasma creatinine m easurement (mass/volume)Ordered By: Neel Turner on 05-28-2024 Creatinine [Mass/Vol] 1.20 mg/dL 0.70-1.30 [facility] Comment on above: The validity of the calculated GFR & GFRAA in patients over 70 years has not been determined. Clinical correlation is essential. Serum or plasma urea nitroge n measurement (mass/volume)Ordered By: Neel Turner on 05-28-2024 Urea nitrogen [Mass/Vol] 11 mg/dL 7-18 [facility] Sodium levelOrdered By: Neel Turner on 05-28-2024 Sodium [Moles/Vol] 139 mmol/L 136-145 [facility] TSH QnOrdered By: Neel Turner o n 05-28-2024 Thyroid Stimulating Hormone (TSH) 5.250 uIU/mL High 0.358-3.740 [facility] Thyroid Stim Hormone (TSH)on 05-28-2024 TSH 5.250 uIU/mL High 0.358-3.740 [facility] Comment on above: Performed By: #### L 500.4050, L100.0100, L501.9520, L500.4100 #### [facility] [address] [place], [address] Total proteinOrdered By: Neel Turner on 05-28-2024 Protein [Mass/Vol] 7.1 g/dL 6.4-8.2 [facility] Triglycerides measurementOrd ered By: Neel Turner on 05-28-2024 Triglyceride [Mass/Vol] 101 mg/dL <199 [facility] Comment on above: The drugs N-Acetylcy steine and Metamizole may falsely depress this assay.Serum Triglycerides Reference Interval Normal <150 mg/dL Borderline high 150 - 199 mg/dL High 200 - 499 mg/dL Very High > or = 500 mg/dL Very low density lipoprotein (VLDL) cholesterol measurementOrdered By: Neel Turner on 05-28-2024 VLDL Cholesterol 20 mg/dL 5-40 [facility] White blood cell (WBC) count Ordered By: Neel Turner on 05-28-2024 WBC (Bld) [#/Vol] 6.7 10*3/uL Normal 4.4-11.0 [facility] Comment on above: Performed By: #### L 500.4050, L100.0100, L501.9520, L500.4100 #### [facility] [address] [facility] [place], [address] Thyroid Stim Hormone (TSH)on 02-09-2024 TSH 2.380 uIU/mL Normal 0.358-3.740 [facility] Comment on above: Performed By: #### L 501.9520 ####[facility] [address] [place], [address] Thyroid Stim Hormone (TSH)on 12-26-2023 TSH 0.13 uIU/mL Low 0.358-3.74 [facility] Comment on above: Performed By: #### L 501.9520 #### [facility] [address] [place], [address] CBC W/Diff, Automatedon 06-2 Absolute Lymph 1.96 X10 3/uL Normal 0.83-4.51 [facility] Comment on above: Performed By: #### L 501.9910, L500.4050, L100.0100, L501.9520 ####[facility] [address] [place], [address] Absolute Neut 3.7 X10 3/uL Normal 2.0-7.7 [facility] Comment on above: Performed By: #### L 501.9910, L500.4050, L100.0100, L501.9520 ####[facility] [address] [place], [address] Basophils/100 WBC (Bld) 1.6 % High 0-1 [facility] Comment on above: Performed By: #### L 501.9910, L500.4050, L100.0100, L501.9520 ####[facility] [address] [place], [address] Eosinophils/100 WBC (Bld) 12.4 % High 0-5 [facility] Comment on above: Performed By: #### L 501.9910, L500.4050, L100.0100, L501.9520 ####[facility] [address] [place], [address] Erythrocyte distribution width (RBC) [Ratio] 13.5 % Normal 11.6-14.6 [facility] Comment on above: Performed By: #### L 501.9910, L500.4050, L100.0100, L501.9520 ####[facility] [address] [place], [address] Hematocrit (Bld) [Volume fraction] 47.5 % Normal 40-54 [facility] Comment on above: Performed By: #### L 501.9910, L500.4050, L100.0100, L501.9520 ####[facility] [address] [place], [address] Hemoglobin (Bld) [Mass/Vol] 15.5 g/dL Normal 13.0-16.5 [facility] Comment on above: Performed By: #### L 501.9910, L500.4050, L100.0100, L501.9520 ####[facility] [address] [place], [address] IG% 0.100 Normal 0.0-0.9 [facility] Comment on above: Result Comment: IG% - Immature Granulocytes (promyelocytes, myelocytes and metamyelocytes) > 1% indicates that a LEFT SHIFT is Present. Performed By: #### L 501.9910, L500.4050, L100.0100, L501.9520 ####[facility] [address] [place], [address] Lymphocytes/100 WBC (Bld) 26.7 % Normal 19-41 [facility] Comment on above: Performed By: #### L 501.9910, L500.4050, L100.0100, L501.9520 ####[facility] [address] [place], [address] MCH (RBC) [Entitic mass] 30.4 pg Normal 27.0-32.0 [facility] Comment on above: Performed By: #### L 501.9910, L500.4050, L100.0100, L501.9520 ####[facility] [address] [place], [address] MCHC (RBC) [Mass/Vol] 32.6 g/dL Normal 32-36 [facility] Comment on above: Performed By: #### L 501.9910, L500.4050, L100.0100, L501.9520 ####[facility] [address] [place], [address] MCV (RBC) [Entitic vol] 93.1 fL Normal 80-94 [facility] Comment on above: Performed By: #### L 501.9910, L500.4050, L100.0100, L501.9520 ####[facility] [address] [place], [address] Monocytes/100 WBC (Bld) 8.2 % Normal 0-10 [facility] Comment on above: Performed By: #### L 501.9910, L500.4050, L100.0100, L501.9520 ####[facility] [address] [place], [address] Neutrophils/100 WBC (Bld) 51.0 % Normal 47-70 [facility] Comment on above: Performed By: #### L 501.9910, L500.4050, L100.0100, L501.9520 ####[facility] [address] [place], [address] Nucleated RBC (Bld) [#/Vol] 0 10*3/uL Normal 0-5 [facility] Comment on above: Performed By: #### L 501.9910, L500.4050, L100.0100, L501.9520 ####[facility] [address] [place], [address] Platelet mean volume (Bld) [Entitic vol] 10.0 fL Normal 6.2-12.0 [facility] Comment on above: Performed By: #### L 501.9910, L500.4050, L100.0100, L501.9520 ####[facility] [address] [place], [address] Platelets (Bld) [#/Vol] 307 10*3/uL Normal 150-450 [facility] Comment on above: Performed By: #### L 501.9910, L500.4050, L100.0100, L501.9520 ####[facility] [address] [place], [address] RBC (Bld) [#/Vol] 5.10 10*6/uL Normal 4.6-6.2 [facility] Comment on above: Performed By: #### L 501.9910, L500.4050, L100.0100, L501.9520 ####[facility] [address] [place], [address] RDW SD 46.3 fl High 35.1-43.9 [facility] Comment on above: Performed By: #### L 501.9910, L500.4050, L100.0100, L501.9520 ####[facility] [address] [place], [address] WBC (Bld) [#/Vol] 7.3 10*3/uL Normal 4.4-11.0 [facility] Comment on above: Performed By: #### L 501.9910, L500.4050, L100.0100, L501.9520 ####[facility] [address] [place], [address] Comprehensive Metabolic Prof wion 11-14-2023 Albumin [Mass/Vol] 4.0 g/dL Normal 3.2-5.0 [facility] Comment on above: Performed By: #### L 501.9910, L500.4050, L100.0100, L501.9520 ####[facility] [address] [place], [address] Albumin/Globulin [Mass ratio] 1.3 {ratio} Normal 0.9-2.4 [facility] Comment on above: Performed By: #### L 501.9910, L500.4050, L100.0100, L501.9520 ####[facility] [address] [place], [address] ALK P 109 U/L Normal 45-117 [facility] Comment on above: Performed By: #### L 501.9910, L500.4050, L100.0100, L501.9520 ####[facility] [address] [place], [address] ALT [Catalytic activity/Vol] 53 U/L Normal 16-61 [facility] Comment on above: Performed By: #### L 501.9910, L500.4050, L100.0100, L501.9520 ####[facility] [address] [place], [address] AST [Catalytic activity/Vol] 23 U/L Normal 15-37 [facility] Comment on above: Performed By: #### L 501.9910, L500.4050, L100.0100, L501.9520 ####[facility] [address] [place], [address] Bilirubin [Mass/Vol] 0.80 mg/dL Normal 0.20-1.00 [facility] Comment on above: Result Comment: For patients on eltrombopag therapy, use of Dimension [place] TBIL is not recommended. Performed By: #### L 501.9910, L500.4050, L100.0100, L501.9520 ####[facility] [address] [place], [address] BUN/CRE 16.5 RATIO Normal 10-20 [facility] Comment on above: Performed By: #### L 501.9910, L500.4050, L100.0100, L501.9520 ####[facility] [address] [place], [address] CA,Total 9.1 mg/dL Normal 8.5-10.1 [facility] Comment on above: Performed By: #### L 501.9910, L500.4050, L100.0100, L501.9520 ####[facility] [address] [place], [address] Chloride [Moles/Vol] 107 mmol/L Normal 98-107 [facility] Comment on above: Performed By: #### L 501.9910, L500.4050, L100.0100, L501.9520 ####[facility] [address] [place], [address] CO2 [Moles/Vol] 27.0 mmol/L Normal 21.0-32.0 [facility] Comment on above: Performed By: #### L 501.9910, L500.4050, L100.0100, L501.9520 ####[facility] [address] [place], [address] Creatinine [Mass/Vol] 1.21 mg/dL Normal 0.70-1.30 [facility] Comment on above: Result Comment: The validity of the calculated GFR GFRAA in patients over 70 years has not been determined. Clinical correlation is essential. Performed By: #### L 501.9910, L500.4050, L100.0100, L501.9520 ####[facility] [address] [place], [address] EST GFR - AA 80 mL/min Normal >60 [facility] Comment on above: Result Comment: Afri can Russian GFR Calc Performed By: #### L 501.9910, L500.4050, L100.0100, L501.9520 ####[facility] [address] [place], [address] GAP 6 Normal 5-15 [facility] Comment on above: Performed By: #### L 501.9910, L500.4050, L100.0100, L501.9520 ####[facility] [address] [place], [address] GFR/1.73 sq M.predicted among non-blacks MDRD (S/P/Bld) [Vol rate/Area] 66 mL/min/{1.73_m2} Normal >60 [facility] Comment on above: Result Comment: Non- GFR Calc Performed By: #### L 501.9910, L500.4050, L100.0100, L501.9520 ####[facility] [address] [place], [address] Globulin (S) [Mass/Vol] 3.1 g/dL Normal 2.2-4.2 [facility] Comment on above: Performed By: #### L 501.9910, L500.4050, L100.0100, L501.9520 ####[facility] [address] [place], [address] Glucose [Mass/Vol] 106 mg/dL Normal 74-106 [facility] Comment on above: Result Comment: Fast ing Glucose result from 100 to 125 mg/dL suggests IMPAIRED HOMEOSTASIS per A.D.A. criteria. Performed By: #### L 501.9910, L500.4050, L100.0100, L501.9520 ####[facility] [address] [place], [address] Potassium [Moles/Vol] 4.2 mmol/L Normal 3.5-5.1 [facility] Comment on above: Performed By: #### L 501.9910, L500.4050, L100.0100, L501.9520 ####[facility] [address] [place], [address] Sodium [Moles/Vol] 140 mmol/L Normal 136-145 [facility] Comment on above: Performed By: #### L 501.9910, L500.4050, L100.0100, L501.9520 ####[facility] [address] [place], [address] T PROT 7.1 g/dL Normal 6.4-8.2 [facility] Comment on above: Performed By: #### L 501.9910, L500.4050, L100.0100, L501.9520 ####[facility] [address] [place], [address] Urea nitrogen [Mass/Vol] 20 mg/dL High 7-18 [facility] Comment on above: Performed By: #### L 501.9910, L500.4050, L100.0100, L501.9520 ####[facility] [address], [address] PSA,Total - Annual Screenon 11-14-2023 PSA,TOT SCREEN 0.48 ng/mL Normal 0.00-4.00 [facility] Comment on above: Result Comment: This test was performed using the TPSA assay method for the hyperWALLET [employer] chemistry system. Values obtained with different assay methods cannot be used interchangably. When changing PSA assays in the course of monitoring a patient, additional sequential testing should be carried out to confirm baseline values. Performed By: #### L 501.9910, L500.4050, L100.0100, L501.9520 ####[facility] [address] [facility] [place], [address] Thyroid Stim Hormone (TSH)on 11-14-2023 TSH 0.07 uIU/mL Low 0.358-3.74 [facility] Comment on above: Performed By: #### L 501.9910, L500.4050, L100.0100, L501.9520 ####[facility] [address] [place], [address] Stress Reporton 10-20-2023 Stress Report [facility] [address] [place] [address] MR#: [id number] Acct: [id number] Name: DADA SOLO Rep #: [id number] : 1965 58 From: Gail Torres MD Primary Care: Dr. Neel Turner MD Status: [facility] [address] Referring Dr: Neel Turner MD Sex: M C Stress Test Report Date: 10/14/2023 Procedure: Pharmacologic stress nuclear imaging study Indications: Chest pain Consent: Per the patient Procedure: The patient underwent pharmacologic (Regadenoson) evaluation with a peak heart rate of 107 beats per minute (65%predicted maximal heart rate) and a peak blood pressure of 118/64 mmHg. The baseline ECG demonstrated normal sinus rhythm. EKG during lexiscan infusion revealed no significant ischemic changes. EKG post infusion revealed no significant ischemic changes [There were no cardiac dysrhythmias pretest, during pharmacologic infusion, or recovery]. [There was no complaint of chest discomfort during pharmacologic infusion or recovery]. The examination was discontinued secondary to completion of protocol. Impression: 1. Lexiscan stress test test is negative for Lexiscan infusion induced EKG changes of ischemia. 2. Lexiscan stress test test is negative for Lexiscan infusion induced chest pain. 3. Results of the nuclear portion of the test is as below Myocardial perfusion imaging study: Technique: The patient was injected with 14.5 millicuries of technetium 99m Cardiolite and subsequently rest SPECT Cardiolite nuclear imaging was obtained in the horizontal long, vertical long, and short axis views. The patient underwent pharmacologic [Regadenoson 0.4mg] evaluation. Please see above for details. The patient was injected with 44.8 millicuries of technetium 99m Cardiolite and subsequently stress SPECT Cardiolite nuclear imaging was obtained in the horizontal long, vertical long, and short axis views. A gated Cardiolite study at peak stress was obtained. Interpretation: Rest and stress SPECT Cardiolite nuclear imaging status post realignment, normalization, and attenuation correction demonstrate no evidence of significant ischemia or infarction. Gated images reveal no significant regional wall motion abnormalities. The reported LVEF is 55%. Impression: 1. There is []. 2. Estimated ejection fraction is []. This note was generated with Wanovaation software. It may contain incorrect words, spelling, and punctuation that were not noted in checking the note before signing. 10/20/23 1130 Date Gail Torres MD CC: Dr. Neel Turner MD Date Dictated: 10/20/23 1128 Date Transcribed: 10/20/231127 Day Care Attendant: NN Signed Normal [facility] No Panel InformationOrdered By: Neel Turner on 08-06-2023 Lyme Disease IgG Ab 18 kDa Band Absent . [facility] Lyme Disease IgG Ab 23 kDa Band Absent . [facility] Lyme Disease IgG Ab 28 kDa Band Absent . [facility] Lyme Disease IgG Ab 30 kDa Band Absent . [facility] Lyme Disease IgG Ab 39 kDa Band Absent . [facility] Lyme Disease IgG Ab 41 kDa Band Absent . [facility] Lyme Disease IgG Ab 45 kDa Band Absent . [facility] Lyme Disease IgG Ab 58 kDa Band Absent . [facility] Lyme Disease IgG Ab 66 kDa Band Absent . [facility] Lyme Disease IgG Ab 93 kDa Band Absent . [facility] Lyme Disease IgG [place] Interp Negative . [facility] Comment on above: Positive: 5 of the f ollowing Borrelia-specific bands: 18,23,28,30,39,41,45,58, 66, and 93. Negative: No bands or banding patterns which do not meet positive criteria. Lyme Disease IgM Ab (Western Blot) Negative . [facility] Comment on above: Note: An equivocal o r positive EIA result followed by anegative Line Blot result is considered NEGATIVE. Anequivocal or positive EIA result followed by a positiveLine Blot is considered POSITIVE by the CDC.Positive: 2 of the following bands: 23,39 or 41Negative: No bands or banding patterns which do not meetpositive criteria.Criteria for positivity are those recommended byCDC/ASTPHLD. p23=Osp C, g24=youvxgzwfKqkc:Sera from individuals with the following may cross reactin the Lyme Line Blot assays: other spirochetal diseases(periodontal disease, leptospirosis, relapsing fever, yaws,and pinta); connective autoimmune (Rheumatoid Arthritis andSystemic Lupus Erythematosus and also individuals withAntinuclear Antibody); other infections (Damien MountainSpotted Fever; Frederick-Knig Virus, and Cytomegalovirus).Please Note: Lyme immunoblot alone is not recommended forthe diagnosis of Lyme disease. Current guidelines recommendthe use of a two-tiered approach to Lyme serology testingto improve the sensitivity and specificity of testing.[facility] offers test code 984767 Lyme Disease Serology withReflex to aid in the diagnosis of Lyme Disease.Performed at: [address] [id number] Director: Vel Infante MD, Phone: [phone] Lyme Disease IgM Ab 23 kDa Band Absent . [facility] Lyme Disease IgM Ab 39 kDa Band Absent . [facility] Lyme Disease IgM Ab 41 kDa Band Absent . [facility] CBC W Auto Differential pane l (Bld)on 07-14-2023 Basophils (Bld) [#/Vol] 0.13 x10*3/uL High 0.00-0.10 [facility] Comment on above: Performed By: #### 5 7021-8 #### KARYN NELSON ([id number]) [facility] ([facility]) [address] [place] [address] 89621 Basophils/100 WBC (Bld) 1.6 % Normal 0.0-2.0 U [facility] Comment on above: Performed By: #### 7021-8 #### KARYN NELSON ([id number]) [facility] ([facility]) [address] [place] [address] 97601 Eosinophils (Bld) [#/Vol] 0.62 x10*3/uL Normal 0.00-0. 70 [facility] Comment on above: Performed By: #### 5 7021-8 #### KARYN NELSON ([id number]) [facility] ([facility]) [address] [place] [address] 75678 Eosinophils/100 WBC (Bld) 7.7 % Normal 0.0-6.0 [facility] Comment on above: Performed By: #### 7021-8 #### KARYN NELSON ([id number]) [facility] ([facility]) [address] [place] [address] 82205 Erythrocyte distribution width (RBC) [Ratio] 13.1 % Normal 11.5-14.5 [facility] Comment on above: Performed By: #### 5 7021-8 #### KARYN NELSON ([id number]) [facility] ([facility]) [address] [place] [address] 32069 Hematocrit (Bld) [Volume fraction] 45.4 % Normal 41.0-52.0 [facility] Comment on above: Performed By: #### 7021-8 #### KARYN NELSON ([id number]) [facility] ([facility]) [address] [place] [address] 27036 Hemoglobin (Bld) [Mass/Vol] 15.1 g/dL Normal 13.5-17.5 [facility] Comment on above: Performed By: #### 7021-8 #### KARYN NELSON ([id number]) [facility] ([facility]) [address] [place] [address] 40484 Immature granulocytes (Bld) [#/Vol] 0.01 x10*3/uL Normal 0.00-0.70 [facility] Comment on above: Performed By: #### 5 7021-8 #### KARYN NELSON ([id number]) [facility] ([facility]) [address] [place] [address] 43757 Immature granulocytes/100 WBC (Bld) 0.1 % Normal 0.0-0.9 [facility] Comment on above: Result Comment: Sandhya ture Granulocyte Count (IG) includes promyelocytes, myelocytes and metamyelocytes but does not include bands. Percent differential counts (%) should be interpreted in the context of the absolute cell counts (cells/UL). Performed By: #### 5 7021-8 #### KARYN NELSON ([id number]) [facility] ([facility]) [address] [place] [address] 25802 Lymphocytes (Bld) [#/Vol] 2.84 x10*3/uL Normal 1.20-4. 80 [facility] Comment on above: Performed By: #### 5 7021-8 #### KARYN NELSON ([id number]) [facility] ([facility]) [address] [place] [address] 90701 Lymphocytes/100 WBC (Bld) 35.2 % Normal 13.0-44.0 [facility] Comment on above: Performed By: #### 5 7021-8 #### KARYN NELSON ([id number]) [facility] ([facility]) [address] [place] [address] 30248 MCH (RBC) [Entitic mass] 31.0 pg Normal 26.0-34.0 [facility] Comment on above: Performed By: #### 5 7021-8 #### KARYN NELSON ([id number]) [facility] ([facility]) [address] [place] [address] 60387 MCHC (RBC) [Mass/Vol] 33.3 g/dL Normal 32.0-36.0 [facility] Comment on above: Performed By: #### 5 7021-8 #### KARYN NELSON ([id number]) [facility] ([facility]) [address] [place] [address] 15026 MCV (RBC) [Entitic vol] 93 fL Normal 80-100 U [facility] Comment on above: Performed By: #### 5 7021-8 #### KARYN NELSON ([id number]) [facility] ([facility]) [address] [place] [address] 00563 Monocytes (Bld) [#/Vol] 0.72 x10*3/uL Normal 0.10-1.00 [facility] Comment on above: Performed By: #### 5 7021-8 #### KARYN NELSON ([id number]) [facility] ([facility]) [address] [place] [address] 26325 Monocytes/100 WBC (Bld) 8.9 % Normal 2.0-10.0 U [facility] Comment on above: Performed By: #### 5 7021-8 #### KARYN NELSON ([id number]) [facility] ([facility]) [address] [place] [address] 67079 Neutrophils (Bld) [#/Vol] 3.74 x10*3/uL Normal 1.20-7. 70 [facility] Comment on above: Result Comment: Perc ent differential counts (%) should be interpreted in the context of the absolute cell counts (cells/uL). Performed By: #### 5 7021-8 #### KARYN NELSON ([id number]) [facility] ([facility]) [address] [place] [address] 59256 Neutrophils/100 WBC (Bld) 46.5 % Normal 40.0-80.0 [facility] Comment on above: Performed By: #### 5 7021-8 #### KARYN NELSON ([id number]) [facility] ([facility]) [address] [place] [address] 02499 Nucleated RBC/100 WBC (Bld) [Ratio] 0.0 /100 WBCs Normal 0.0-0.0 [facility] Comment on above: Performed By: #### 5 7021-8 #### KARYN NELSON ([id number]) [facility] ([facility]) [address] [place] [address] 79017 Platelets (Bld) [#/Vol] 314 x10*3/uL Normal 150-450 [facility] Comment on above: Performed By: #### 5 7021-8 #### KARYN NELSON ([id number]) [facility] ([facility]) [address] [place] [address] 15578 RBC (Bld) [#/Vol] 4.87 x10*6/uL Normal 4.50-5.90 [facility] Comment on above: Performed By: #### 5 7021-8 #### KARYN NELSON ([id number]) [facility] ([facility]) [address] [place] [address] 32317 WBC (Bld) [#/Vol] 8.1 x10*3/uL Normal 4.4-11.3 [facility] Comment on above: Performed By: #### 5 7021-8 #### KARYN NELSON ([id number]) [facility] ([facility]) [address] [place] [address] 74611 Basophils (Bld) [#/Vol] 0.13 10*3/uL High [facility] Basophils/100 WBC (Bld) 1.6 % 0.0 - 2.0 % [facility] Eosinophils (Bld) [#/Vol] 0.62 10*3/uL [facility] Eosinophils/100 WBC (Bld) 7.7 % 0.0 - 6.0 % [facility] Erythrocyte distribution width (RBC) [Ratio] 13.1 % 11.5 - 14.5 % [facility] Hematocrit (Bld) [Volume fraction] 45.4 % 41.0 - 52.0 % [facility] Hemoglobin (Bld) [Mass/Vol] 15.1 g/dL 13.5 - 17.5 g/dL [facility] Immature granulocytes (Bld) [#/Vol] 0.01 10*3/uL [facility] Immature granulocytes/100 WBC (Bld) 0.1 % 0.0 - 0.9 % [facility] Comment on above: Immature Granulocyte Count (IG) includes promyelocytes, myelocytes and metamyelocytes but does not include bands. Percent differential counts (%) should be interpreted in the context of the absolute cell counts (cells/UL). Interpretation and review of laboratory results Abnormal [facility] Lymphocytes (Bld) [#/Vol] 2.84 10*3/uL [facility] Lymphocytes/100 WBC (Bld) 35.2 % 13 .0 - 44.0 % [facility] MCH (RBC) [Entitic mass] 31.0 pg 26. 0 - 34.0 pg [facility] MCHC (RBC) [Mass/Vol] 33.3 g/dL 32.0 - 36.0 g/dL [facility] MCV (RBC) [Entitic vol] 93 fL 80 - 100 fL [facility] Monocytes (Bld) [#/Vol] 0.72 10*3/uL [facility] Monocytes/100 WBC (Bld) 8.9 % 2.0 - 10.0 % [facility] Neutrophils (Bld) [#/Vol] 3.74 10*3/uL [facility] Comment on above: Percent differential counts (%) should be interpreted in the context of the absolute cell counts (cells/uL). Neutrophils/100 WBC (Bld) 46.5 % 40 .0 - 80.0 % [facility] Nucleated RBC/100 WBC (Bld) [Ratio] 0.0 % [facility] Platelets (Bld) [#/Vol] 314 10*3/uL [facility] RBC (Bld) [#/Vol] 4.87 10*6/uL [facility] WBC (Bld) [#/Vol] 8.1 10*3/uL [facility] CT HEAD WO IV CONTRASTon CT HEAD WO IV CONTRAST Interpreted By: Jonah Dugan, STUDY: CT HEAD WO IV CONTRAST; 07/14/2023 1:02 pm INDICATION: Signs/Symptoms:sync ope. COMPARISON: None. ACCESSION NUMBER(S): [id number] ORDERING CLINICIAN: LOGAN GRIFFIN TECHNIQUE: Noncontrast axial CT scan of head was performed. Angled reformats in brain and bone windows were generated. The images were reviewed in bone, brain, blood and soft tissue windows. FINDINGS: CSF Spaces: The ventricles, sulci and basal cisterns are within normal limits. There is no extraaxial fluid collection. Parenchyma: The logan-white differentiation is intact. There is no mass effect or midline shift. There is no intracranial hemorrhage. Calvarium: The calvarium is unremarkable. Paranasal sinuses and mastoids: Visualized paranasal sinuses and mastoids are clear. IMPRESSION: No evidence of acute cortical infarct or intracranial hemorrhage. MACRO: None Signed by: Jonah Dugan 07/14/2023 1:29 PM Dictation workstation: [id number] [facility] CT Head WO contraston 2023 No evidence of acute cortical infarct or intracranial hemorrhage. MACRO: None Signed by: Jonah Dugan 07/14/2023 1:29 PM Dictation workstation: [id number] MMODAL Interpreted By: Jonah Dugan, STUDY: CT HEAD WO IV CONTRAST; 07/14/2023 1:02 pm INDICATION: Signs/Symptoms:sync ope. COMPARISON: None. ACCESSION NUMBER(S): [id number] ORDERING CLINICIAN: LOGAN GRIFFIN TECHNIQUE: Noncontrast axial CT scan of head was performed. Angled reformats in brain and bone windows were generated. The images were reviewed in bone, brain, blood and soft tissue windows. FINDINGS: CSF Spaces: The ventricles, sulci and basal cisterns are within normal limits. There is no extraaxial fluid collection. Parenchyma: The logan-white differentiation is intact. There is no mass effect or midline shift. There is no intracranial hemorrhage. Calvarium: The calvarium is unremarkable. Paranasal sinuses and mastoids: Visualized paranasal sinuses and mastoids are clear. [facility]ODAL Jonah Dugan MD - 07/14/2023 Interpreted By: Jonah Dugan, STUDY: CT HEAD WO IV CONTRAST; 07/14/2023 1:02 pm INDICATION: Signs/Symptoms:sync ope. COMPARISON: None. ACCESSION NUMBER(S): [id number] ORDERING CLINICIAN: LOGAN GRIFFIN TECHNIQUE: Noncontrast axial CT scan of head was performed. Angled reformats in brain and bone windows were generated. The images were reviewed in bone, brain, blood and soft tissue windows. FINDINGS: CSF Spaces: The ventricles, sulci and basal cisterns are within normal limits. There is no extraaxial fluid collection. Parenchyma: The logan-white differentiation is intact. There is no mass effect or midline shift. There is no intracranial hemorrhage. Calvarium: The calvarium is unremarkable. Paranasal sinuses and mastoids: Visualized paranasal sinuses and mastoids are clear. IMPRESSION: No evidence of acute cortical infarct or intracranial hemorrhage. MACRO: None Signed by: Jonah Dugan 07/14/2023 1:29 PM Dictation workstation: [id number] [facility] Work Phone: Radiology Study observation (narrative) [facility] Work Phone: CT Head WO contrastOrdered B y: Jonah Dugan on 07-14-2023 [facility] Work Phone: Comprehensive metabolic 2000 panelon 07-14-2023 Albumin BCP dye [Mass/Vol] 4.0 g/dL Normal 3.4-5.0 [facility] Comment on above: Performed By: #### 2 4323-8 #### KARYN NELSON ([id number]) [facility] ([facility]) [address] [place] [address] ALP [Catalytic activity/Vol] 95 U/L Normal 33-120 [facility] Comment on above: Performed By: #### 2 4323-8 #### KARYN NELSON ([id number]) [facility] ([facility]) [facility] [place] [address] ALT With P-5'-P [Catalytic activity/Vol] 38 U/L Normal 10-52 [facility] Comment on above: Result Comment: Rachel ents treated with Sulfasalazine may generate falsely decreased results for ALT. Performed By: #### 2 4323-8 #### KARYN NELSON ([id number]) [facility] ([facility]) [address] [place] [address] Anion gap [Moles/Vol] 13 mmol/L Normal 10-20 [facility] Comment on above: Performed By: #### 2 4323-8 #### KARYN NELSON ([id number]) [facility] ([facility]) [address] [place] [address] AST With P-5'-P [Catalytic activity/Vol] 19 U/L Normal 9-39 [facility] Comment on above: Performed By: #### 2 4322-8 #### KARYN NELSON ([id number]) [facility] ([facility]) [address] [place] [address] 29368 Bilirubin [Mass/Vol] 0.5 mg/dL Normal 0.0-1.2 [facility] Comment on above: Performed By: #### 2 4322-8 #### KARYN NELSON ([id number]) [facility] ([facility]) [address] [place] [address] Calcium [Mass/Vol] 9.3 mg/dL Normal 8.6-10.3 [facility] Comment on above: Performed By: #### 2 4322-8 #### KARYN NELSON ([id number]) [facility] ([facility]) [address] [place] [address] Chloride [Moles/Vol] 106 mmol/L Normal 98-107 [facility] Comment on above: Performed By: #### 2 4322-8 #### KARYN NELSON ([id number]) [facility] ([facility]) [address] [place] [address] CO2 [Moles/Vol] 24 mmol/L Normal 21-32 [facility] Comment on above: Performed By: #### 2 432-8 #### KARYN NELSON ([id number]) [facility] ([facility]) [address] [place] [address] Creatinine [Mass/Vol] 1.15 mg/dL Normal 0.50-1.30 [facility] Comment on above: Performed By: #### 2 4323-8 #### KARYN NELSON ([id number]) [facility] ([facility]) [address] [place] [address] 18921 Glomerular filtration rate/1.73 sq M.predicted 75 mL/min/1.73m*2 Normal >60 [facility] Comment on above: Result Comment: Calc ulations of estimated GFR are performed using the 2020 CKD-EPI Study Refit equation without the race variable for the IDMS-Traceable creatinine methods. https://jasn.asnjournals.org/content//ASN.20 03061159 Performed By: #### 2 4323-8 #### KARYN NELSON ([id number]) [facility] ([facility]) [address] [place] [address] 13692 Glucose [Mass/Vol] 167 mg/dL High 74-99 [facility] Comment on above: Performed By: #### 2 4323-8 #### KARYN NELSON ([id number]) [facility] ([facility]) [address] [place] [address] 21702 Potassium [Moles/Vol] 3.6 mmol/L Normal 3.5-5.3 [facility] Comment on above: Performed By: #### 2 4323-8 #### KARYN NELSON ([id number]) [facility] ([facility]) [address] [place] [address] 56640 Protein [Mass/Vol] 6.2 g/dL Low 6.4-8.2 [facility] Comment on above: Performed By: #### 2 4323-8 #### KARYN NELSON ([id number]) [facility] ([facility]) [address] [place] [address] 28025 Sodium [Moles/Vol] 139 mmol/L Normal 136-145 [facility] Comment on above: Performed By: #### 2 4323-8 #### KARYN NELSON ([id number]) [facility] ([facility]) [address] [place] [address] 58859 Urea nitrogen [Mass/Vol] 14 mg/dL Normal 6-23 [facility] Comment on above: Performed By: #### 2 4323-8 #### BOSS OMAR ([id number]) [facility] ([facility]) [address] [place] [address] Albumin BCP dye [Mass/Vol] 4.0 g/dL 3.4 - 5.0 g/dL [facility] ALP [Catalytic activity/Vol] 95 U/L 33 - 120 U/L [facility] ALT With P-5'-P [Catalytic activity/Vol] 38 U/L 10 - 52 U/L [facility] Comment on above: Patients treated wit h Sulfasalazine may generate falsely decreased results for ALT. Anion gap [Moles/Vol] 13 mmol/L 10 - 2 0 mmol/L [facility] AST With P-5'-P [Catalytic activity/Vol] 19 U/L 9 - 39 U/L [facility] Bilirubin [Mass/Vol] 0.5 mg/dL 0.0 - 1 .2 mg/dL [facility] Calcium [Mass/Vol] 9.3 mg/dL 8.6 - 10. 3 mg/dL [facility] Chloride [Moles/Vol] 106 mmol/L 98 - 10 7 mmol/L [facility] CO2 [Moles/Vol] 24 mmol/L 21 - 32 mmol/L [facility] Creatinine [Mass/Vol] 1.15 mg/dL 0.50 - 1.30 mg/dL [facility] GFR/1.73 sq M.predicted among non-blacks MDRD (S/P/Bld) [Vol rate/Area] 75 mL/min/{1.73_m2} - PINF [facility] Comment on above: Calculations of celestina mated GFR are performed using the 2020 CKD-EPI Study Refit equation without the race variable for the IDMS-Traceable creatinine methods. https://jasn.asnjournals.org/content/22/ASN.20 98699363 Glucose [Mass/Vol] 167 mg/dL High 74 - 99 mg/dL [facility] Interpretation and review of laboratory results Abnormal [facility] Potassium [Moles/Vol] 3.6 mmol/L 3.5 - 5.3 mmol/L [facility] Protein [Mass/Vol] 6.2 g/dL Low 6.4 - 8.2 g/dL [facility] Sodium [Moles/Vol] 139 mmol/L 136 - 145 mmol/L [facility] Urea nitrogen [Mass/Vol] 14 mg/dL 6 - 23 mg/d L [facility] ECG 12-LEADon 07-14-2023 ECG 12-LEAD Ventricular Rate 85 Atrial Rate 85 P-R Interval 188 QRS Duration 84 Q-T Interval 380 QTC Calculation(Bazett) 452 P [place] 44 R [place] 32 T [place] 49 QRS Count 14 Q Onset 222 P Onset 128 P Offset 187 T Offset 412 QTC Fredericia 426 Diagnosis Normal sinus rhythm Normal ECG No previous ECGs available Normal [facility] FLUAV and FLUBV RNA COSTA+prob e Nom (Unsp spec)on 07-14-2023 FLUAV RNA COSTA+probe Ql (Resp) Not detected Normal Not Detected [facility] Comment on above: Order Comment: This assay is an in vitro diagnostic multiplex nucleic acid amplification test for the detection and discrimination of Influenza A & B from nasopharyngeal specimens, and has been validated for use at [facility]. Negative results do not preclude Influenza A/B infections, and should not be used as the sole basis for diagnosis, treatment, or other management decisions. If Influenza A/B and RSV PCR results are negative, testing for Parainfluenza virus, Adenovirus and Metapneumovirus is routinely performed for [facility] pediatric oncology and intensive care inpatients, and is available on other patients by placing an add-on request. Performed By: #### 4 [id number] #### BOSS OMAR ([id number]) [facility] ([facility]) [address] [place] [address] FLUBV RNA COSTA+probe Ql (Resp) Not detected Normal Not Detected [facility] Comment on above: Order Comment: This assay is an in vitro diagnostic multiplex nucleic acid amplification test for the detection and discrimination of Influenza A & B from nasopharyngeal specimens, and has been validated for use at [facility]. Negative results do not preclude Influenza A/B infections, and should not be used as the sole basis for diagnosis, treatment, or other management decisions. If Influenza A/B and RSV PCR results are negative, testing for Parainfluenza virus, Adenovirus and Metapneumovirus is routinely performed for [facility] pediatric oncology and intensive care inpatients, and is available on other patients by placing an add-on request. Performed By: #### 4 [id number] #### BOSS OMAR ([id number]) [facility] ([facility]) [address] [place] [address] FLUAV RNA COSTA+probe Ql (Resp) Not detected Not Detected [facility] FLUBV RNA COSTA+probe Ql (Resp) Not detected Not Detected [facility] This assay is an in vitro diagnostic multiplex nucleic acid amplification test for the detection and discrimination of Influenza A & B from nasopharyngeal specimens, and has been validated for use at [facility]. Negative results do not preclude Influenza A/B infections, and should not be used as the sole basis for diagnosis, treatment, or other management decisions. If Influenza A/B and RSV PCR results are negative, testing for Parainfluenza virus, Adenovirus and Metapneumovirus is routinely performed for [facility] pediatric oncology and intensive care inpatients, and is available on other patients by placing an add-on request. [facility] No Panel Informationon 07-14 Interpretation and review of laboratory results Normal [facility] SARS coronavirus 2 RNAon SARS-CoV-2 (COVID-19) RNA COSTA+probe Ql (Resp) Not detected Normal Not Detected [facility] Comment on above: Order Comment: This assay has received FDA Emergency Use [...] and has been validated for use at [facility]. Negative results do not preclude COVID-19 infections and should not be used as the sole basis for diagnosis, treatment, or other management decisions. Performed By: #### 9 [id number] #### BOSS OMAR ([id number]) [facility] ([facility]) [address] [place] [address] SARS-CoV-2 (COVID-19) RNA NA A+probe Ql (Resp)on 07-14-2023 This assay has received FDA Emergency Use [...] and has been validated for use at [facility]. Negative results do not preclude COVID-19 infections and should not be used as the sole basis for diagnosis, treatment, or other management decisions. [facility] Sars-CoV-2 PCRon 07-14-2023 SARS-CoV-2 (COVID-19) RNA COSTA+probe Ql (Resp) Not detected Not Detected [facility] Tropinin I.cardiac panel Hig h sensitivity methodon 07-14-2023 Interpretation and review of laboratory results Normal [facility] Less than 99th percentile of normal range [...] performed using a different testing methodology at [facility] than at other [facility]. Direct result comparisons should only be made within the same method. [facility] Troponin I, High Sensitivity on 07-14-2023 Tropinin I.cardiac panel High sensitivity method ng/L 0 - 20 ng/L [facility] Troponin I.cardiac panelon 0 07-14-2023 Tropinin I.cardiac panel High sensitivity method <3 Normal 0-20 [facility] Comment on above: Order Comment: Less than 99th percentile of normal range [...] performed using a different testing methodology at [facility] than at other [facility]. Direct result comparisons should only be made within the same method. Performed By: #### 8 [id number] #### KARYN NELSON ([id number]) [facility] ([facility]) [address] [place] [address] Urinalysis complete W Reflex Culture panel (U)on 07-14-2023 Appearance (U) Hazy Normal Clear [facility] Comment on above: Performed By: #### 5 8077-9 #### KARYN NELSON ([id number]) [facility] ([facility]) [address] [place] [address] Bilirubin (U) [Mass/Vol] Negative Normal NEGATIVE [facility] Comment on above: Performed By: #### 5 8077-9 #### KARYN NELSON ([id number]) [facility] ([facility]) [address] [place] [address] Color (U) Yellow Normal Straw, Yellow [facility] Comment on above: Performed By: #### 5 8077-9 #### KARYN NELSON ([id number]) [facility] ([facility]) [address] [place] [address] Glucose Auto test strip (U) [Mass/Vol] Negative Normal NEGATIVE [facility] Comment on above: Performed By: #### 5 8077-9 #### KARYN NELSON ([id number]) [facility] ([facility]) [address] [place] [address] Granular casts Computer assisted (U) [#/Area] 3+ /LPF Abnormal NONE [facility] Comment on above: Performed By: #### 5 8077-9 #### KARYN NELSON ([id number]) [facility] ([facility]) [address] [place] [address] Hyaline casts Auto (Urine sed) [#/Area] 1+ /LPF Abnormal NONE [facility] Comment on above: Performed By: #### 5 8077-9 #### KARYN NELSON ([id number]) [facility] ([facility]) [address] [place] [address] Ketones (U) [Mass/Vol] 20 (1+) [facility] Performed By: #### 5 8077-9 #### KARYN NELSON ([id number]) [facility] ([facility]) [address] [place] [address] Leukocyte esterase Auto test strip Ql (U) Negative Normal NEGATIVE [facility] Comment on above: Performed By: #### 5 8077-9 #### KARYN NELSON ([id number]) [facility] ([facility]) [address] [place], [place] [id number] Mucus Auto (Urine sed) [#/Area] 1+ /LPF Normal Reference range not established. [facility] Comment on above: Performed By: #### 5 8077-9 #### KARYN NELSON ([id number]) [facility] ([facility]) [address] [place] [address] Nitrite Auto test strip Ql (U) Negative Normal NEGATIVE [facility] Comment on above: Performed By: #### 5 8077-9 #### KARYN NELSON ([id number]) [facility] ([facility]) [address] [place] [address] pH (U) 5.0 [pH] Normal 5.0, 5.5, 6.0, 6.5, 7.0, 7.5, 8.0 [facility] Comment on above: Performed By: #### 5 8077-9 #### KARYN NELSON ([id number]) [facility] ([facility]) [address] [place] [address] Protein (U) [Mass/Vol] 100 (2+) Normal NEGATIVE [facility] Comment on above: Performed By: #### 5 8077-9 #### KARYN NELSON ([id number]) [facility] ([facility]) [address] [place] [address] RBC (U) [#/Vol] Negative Normal NEGATIVE [facility] Comment on above: Performed By: #### 5 8077-9 #### KARYN NELSON ([id number]) [facility] ([facility]) [address] [place] [address] RBC Auto (Urine sed) [#/Area] 3-5 Normal NONE, 1-2, 3-5 [facility] Comment on above: Performed By: #### 5 8077-9 #### KARYN NELSON ([id number]) [facility] ([facility]) [address] [place] [address] Specific gravity (U) [Rel density] 1.019 Normal 1.005-1.035 [facility] Comment on above: Performed By: #### 5 8077-9 #### KARYN NELSON ([id number]) [facility] ([facility]) [address] [place] [address] Urobilinogen (U) [Mass/Vol] mg/dL Normal <2.0 [facility] Comment on above: Performed By: #### 5 8077-9 #### KARYN NELSON ([id number]) [facility] ([facility]) [address] [place] [address] WBC Auto (Urine sed) [#/Area] 1-5 Normal 1-5, NONE [facility] Comment on above: Performed By: #### 5 8077-9 #### BOSS OMAR ([id number]) [facility] ([facility]) [address] [place] [address] Appearance (U) Hazy Abnormal Clear [facility] Bilirubin (U) [Mass/Vol] Negative NEGATIVE [facility] Color (U) Yellow Straw, Yellow [facility] Glucose Auto test strip (U) [Mass/Vol] Negative NEGATIVE mg/dL [facility] Granular casts Computer assisted (U) [#/Area] 3+ Abnormal NONE /LPF [facility] Hyaline casts Auto (Urine sed) [#/Area] 1+ Abnormal NONE /[facility] Interpretation and review of laboratory results Abnormal [facility] Ketones (U) [Mass/Vol] 20 (1+) Abnormal NEGAT SANDRA mg/dL [facility] Leukocyte esterase Auto test strip Ql (U) Negative NEGATIVE [facility] Mucus Auto (Urine sed) [#/Area] 1+ Reference range not established. /LPF [facility] Nitrite Auto test strip Ql (U) Negative NEGATIVE [facility] pH (U) 5.0 [pH] 5.0, 5.5, 6.0, 6.5, 7.0, 7.5, 8.0 [facility] Protein (U) [Mass/Vol] 100 (2+) Abnormal NEGAT SANDRA mg/dL [facility] RBC (U) [#/Vol] Negative NEGATIVE [facility] RBC Auto (Urine sed) [#/Area] 3-5 NONE, 1-2, 3-5 /HPF [facility] Specific gravity (U) [Rel density] 1.019 1.005 - 1.035 [facility] Urobilinogen (U) [Mass/Vol] mg/dL NINF - 2.0 mg/dL [facility] WBC Auto (Urine sed) [#/Area] 1-5 1-5, NONE /HPF [facility] XR CHEST 1 VIEWon 07-14-2023 XR CHEST 1 VIEW Interpreted By: Zeiszler, John Paul, STUDY: XR CHEST 1 VIEW 07/14/2023 12:08 pm INDICATION: Signs/Symptoms:sync ope COMPARISON: 12/02/2011 ACCESSION NUMBER(S): [id number] ORDERING CLINICIAN: LOGAN GRIFFIN TECHNIQUE: A single AP portable radiograph of the chest was obtained. FINDINGS: Multiple cardiac monitoring leads are seen over the chest. No focal infiltrate, pleural effusion or pneumothorax is identified. The cardiac silhouette is within normal limits for size. IMPRESSION: No focal infiltrate or pneumothorax is identified. MACRO: None. Signed by: John Paul Sales 07/14/2023 12:27 PM Dictation workstation: [id number] [facility] XR Chest Single viewon 07-14 No focal infiltrate or pneumothorax is identified. MACRO: None. Signed by: John Paul Sales 07/14/2023 12:27 PM Dictation workstation: [employer] MMODAL Interpreted By: John Paul Sales, STUDY: XR CHEST 1 VIEW 07/14/2023 12:08 pm INDICATION: Signs/Symptoms:sync ope COMPARISON: 12/02/2011 ACCESSION NUMBER(S): [id number] ORDERING CLINICIAN: LOGAN GRIFFIN TECHNIQUE: A single AP portable radiograph of the chest was obtained. FINDINGS: Multiple cardiac monitoring leads are seen over the chest. No focal infiltrate, pleural effusion or pneumothorax is identified. The cardiac silhouette is within normal limits for size. [facility] MMODAL John Paul Sales MD - 07/14/2023 Interpreted By: John Paul Sales, STUDY: XR CHEST 1 VIEW 07/14/2023 12:08 pm INDICATION: Signs/Symptoms:sync ope COMPARISON: 12/02/2011 ACCESSION NUMBER(S): [id number] ORDERING CLINICIAN: LOGAN GRIFFIN TECHNIQUE: A single AP portable radiograph of the chest was obtained. FINDINGS: Multiple cardiac monitoring leads are seen over the chest. No focal infiltrate, pleural effusion or pneumothorax is identified. The cardiac silhouette is within normal limits for size. IMPRESSION: No focal infiltrate or pneumothorax is identified. MACRO: None. Signed by: John Paul Sales 07/14/2023 12:27 PM Dictation workstation: [id number] [facility] Work Phone: Radiology Study observation (narrative) [facility] Work Phone: XR Chest Single viewOrdered By: John Paul Sales on 07-14-2023 [facility] Work Phone: Absolute lymphocyte countOrd ered By: Neel Turner on 05-09-2023 Lymphocytes Auto (Unsp spec) [#/Vol] 2.09 10*3/uL 0.83-4.51 [facility] Basophil percentageOrdered B y: Neel Turner on 05-09-2023 Basophils/100 WBC (Bld) 1.7 % 0-1 [facility] Bilirubin [Mass/Vol] 0.60 mg/dL 0.20-1.00 [facility] Comment on above: For patients on eltr ombopag therapy, use of Dimension [place] TBIL is not recommended. Chloride [Moles/Vol] 107 mmol/L 98-107 [facility] Eosinophils/100 WBC (Bld) 6.6 % 0-5 [facility] Glucose [Mass/Vol] 113 mg/dL 74-106 [facility] Comment on above: Fasting Glucose resu lt from 100 to 125 mg/dL suggests IMPAIRED HOMEOSTASIS per A.D.A. criteria. Neutrophils (Bld) [#/Vol] 5.3 10*3/uL 2.0-7.7 [facility] Neutrophils/100 WBC (Bld) 60.0 % 47-70 [facility] Potassium [Moles/Vol] 4.1 mmol/L 3.5-5.1 [facility] Protein [Mass/Vol] 7.4 g/dL 6.4-8.2 [facility] Sodium [Moles/Vol] 142 mmol/L 136-145 [facility] WBC (Bld) [#/Vol] 8.8 10*3/uL 4.4-11.0 [facility] Blood erythrocytes count (nu mber/volume)Ordered By: Neel Turner on 05-09-2023 RBC (Bld) [#/Vol] 5.11 10*6/uL 4.6-6.2 [facility] Blood hemoglobin measurement (mass/volume)Ordered By: [facility] on 05-09-2023 Hemoglobin (Bld) [Mass/Vol] 15.5 g/dL 13.0-16.5 [facility] Blood lymphocytes/100 leukoc ytesOrdered By: [facility] on 05-09-2023 Lymphocytes/100 WBC (Bld) 23.8 % 19-41 [facility] Blood monocytes/100 leukocyt esOrdered By: [facility] on 05-09-2023 Monocytes/100 WBC (Bld) 7.7 % 0-10 [facility] Blood platelet mean volumeOr dered By: [facility] on 05-09-2023 Platelet mean volume (Bld) [Entitic vol] 10.2 fL 6.2-12.0 [facility] Determination of erythrocyte mean corpuscular volume (MCV)Ordered By: [facility] on 05-09-2023 MCV (RBC) [Entitic vol] 93.3 fL 80-94 [facility] Hematocrit Auto (Bld) [Volum e fraction]Ordered By: [facility] on 05-09-2023 Hematocrit (Bld) [Volume fraction] 47.7 % 40-54 [facility] Laboratory - Chemistry and C hemistry - challengeOrdered By: [facility] 05-09-2023 ALP [Catalytic activity/Vol] 102 U/L 45-117 [facility] ALT [Catalytic activity/Vol] 46 U/L 16-61 [facility] CO2 [Moles/Vol] 29.0 mmol/L 21.0-32.0 [facility] Globulin (S) [Mass/Vol] 3.4 g/dL 2.2-4.2 [facility] Urea nitrogen/Creatinine [Mass ratio] 11.1 mg/mg 10-20 [facility] Laboratory - Hematology and Cell countsOrdered By: [facility] 05-09-2023 Erythrocyte distribution width (RBC) [Entitic vol] 46.5 fL 35.1-43.9 [facility] Erythrocyte distribution width (RBC) [Ratio] 13.5 % 11.6-14.6 [facility] Immature granulocytes/100 WBC (Bld) 0.200 % 0.0-0.9 [facility] Comment on above: IG% - Immature Granu locytes (promyelocytes, myelocytes and metamyelocytes) > 1% indicates that a LEFT SHIFT is Present. MCH (RBC) [Entitic mass] 30.3 pg 27.0-32.0 [facility] Nucleated RBC/100 WBC (Bld) [Ratio] 0 % 0-5 [facility] MCHC Auto (RBC) [Mass/Vol]Or dered By: Neel Turner on 05-09-2023 MCHC (RBC) [Mass/Vol] 32.5 g/dL 32-36 [facility] No Panel InformationOrdered By: Neel Turner on 05-09-2023 Estimated GFR (MDRD) Amer 70 mL/min >60 [facility] Comment on above: GFR Calc Estimated GFR (MDRD) Non-Af Amer 58 mL/min >60 [facility] Comment on above: Non- GFR Calc Thyroid Stimulating Hormone (TSH) 0.39 uIU/mL 0.358-3.74 [facility] Platelets bldOrdered By: Neel Turner on 05-09-2023 Platelets (Bld) [#/Vol] 320 10*3/uL 150-450 [facility] Serum or plasma albumin breanna urement (mass/volume)Ordered By: Neel Turner on 05-09-2023 Albumin [Mass/Vol] 4.0 g/dL 3.2-5.0 [facility] Serum or plasma albumin/glob ulin mass ratioOrdered By: Neel Turner 05-09-2023 Albumin/Globulin [Mass ratio] 1.2 {ratio} 0.9-2.4 [facility] Serum or plasma calcium breanna urement (mass/volume)Ordered By: Neel Turner 05-09-2023 Calcium [Mass/Vol] 8.9 mg/dL 8.5-10.1 [facility] Serum or plasma creatinine m easurement (mass/volume)Ordered By: Neel Turner on 05-09-2023 Creatinine [Mass/Vol] 1.35 mg/dL 0.70-1.30 [facility] Comment on above: The validity of the calculated GFR & GFRAA in patients over 70 years has not been determined. Clinical correlation is essential. Serum or plasma urea nitroge n measurement (mass/volume)Ordered By: Neel Turner on 05-09-2023 Urea nitrogen [Mass/Vol] 15 mg/dL 7-18 [facility] Thin prep Papanicolaou smear with manual screeningOrdered By: Neel Turner on 05-09-2023 Thin prep Papanicolaou smear with manual screening 21 U/L 15-37 [facility] Thin prep Papanicolaou smear with manual screening 6 5-15 [facility] Laboratory - Microbiology an d Antimicrobial susceptibilityOrdered By: Neel Turner on 02-27-2023 SARS-CoV-2 (COVID-19) RNA COSTA+probe Ql (Unsp spec) [facility] No Panel InformationOrdered By: Neel Turner on 02-27-2023 Influenza Types A,B Direct FA (KARLA) [facility] RSV Ag EIAOrdered By: Neel salazar on 02-27-2023 RSV Ag Immune stain Ql (Tiss) [facility] Laboratory - Microbiology an d Antimicrobial susceptibilityOrdered By: Neel Turner on 02-13-2023 SARS-CoV-2 (COVID-19) RNA COSTA+probe Ql (Unsp spec) [facility] No Panel InformationOrdered By: Neel Turner on 02-13-2023 Influenza Types A,B Direct FA (KARLA) [facility] RSV Ag EIAOrdered By: Neel salazar on 02-13-2023 RSV Ag Immune stain Ql (Tiss) [facility] No Panel InformationOrdered By: Dr. Turner on 06-27-2022 Thyroid Stimulating Hormone (TSH) 2.23 uIU/mL 0.358-3.74 [facility] Absolute lymphocyte countOrd ered By: Dr. Turner on 05-02-2022 Lymphocytes Auto (Unsp spec) [#/Vol] 1.32 10*3/uL 0.83-4.51 [facility] Basophil percentageOrdered B y: Dr. Turner on 05-02-2022 Basophils/100 WBC (Bld) 1.0 % 0-1 [facility] Bilirubin [Mass/Vol] 0.60 mg/dL 0.20-1.00 [facility] Comment on above: For patients on eltr ombopag therapy, use of Dimension [place] TBIL is not recommended. Chloride [Moles/Vol] 106 mmol/L 98-107 [facility] Eosinophils/100 WBC (Bld) 10.1 % 0-5 [facility] Glucose [Mass/Vol] 132 mg/dL 74-106 [facility] Comment on above: Fasting Glucose resu lt greater than or equal to 126 mg/dL suggests DIABETES MELLITUS per A.D.A. criteria. Neutrophils (Bld) [#/Vol] 3.0 10*3/uL 2.0-7.7 [facility] Neutrophils/100 WBC (Bld) 52.1 % 47-70 [facility] Potassium [Moles/Vol] 3.8 mmol/L 3.5-5.1 [facility] Protein [Mass/Vol] 7.1 g/dL 6.4-8.2 [facility] Sodium [Moles/Vol] 141 mmol/L 136-145 [facility] WBC (Bld) [#/Vol] 5.7 10*3/uL 4.4-11.0 [facility] Blood erythrocytes count (nu mber/volume)Ordered By: Dr. Turner on 05-02-2022 RBC (Bld) [#/Vol] 5.25 10*6/uL 4.6-6.2 [facility] Blood hemoglobin measurement (mass/volume)Ordered By: Dr. Turner on 05-02-2022 Hemoglobin (Bld) [Mass/Vol] 15.6 g/dL 13.0-16.5 [facility] Blood lymphocytes/100 leukoc ytesOrdered By: Dr. Turner on 05-02-2022 Lymphocytes/100 WBC (Bld) 23.0 % 19-41 [facility] Blood monocytes/100 leukocyt esOrdered By: Dr. Turner on 05-02-2022 Monocytes/100 WBC (Bld) 13.6 % 0-10 [facility] Blood platelet mean volumeOr dered By: Dr. Turner on 05-02-2022 Platelet mean volume (Bld) [Entitic vol] 10.7 fL 6.2-12.0 [facility] Determination of erythrocyte mean corpuscular volume (MCV)Ordered By: Dr. Turner on 05-02-2022 MCV (RBC) [Entitic vol] 92.8 fL 80-94 [facility] Hematocrit Auto (Bld) [Volum e fraction]Ordered By: Dr. Turner on 05-02-2022 Hematocrit (Bld) [Volume fraction] 48.7 % 40-54 [facility] Laboratory - Chemistry and C hemistry - challengeOrdered By: Dr. Turner on 05-02-2022 ALP [Catalytic activity/Vol] 100 U/L 45-117 [facility] ALT [Catalytic activity/Vol] 63 U/L 16-61 [facility] CO2 [Moles/Vol] 29.0 mmol/L 21.0-32.0 [facility] Globulin (S) [Mass/Vol] 3.2 g/dL 2.2-4.2 [facility] Urea nitrogen/Creatinine [Mass ratio] 9.8 mg/mg 10-20 [facility] Laboratory - Hematology and Cell countsOrdered By: Dr. Turner on 05-02-2022 Erythrocyte distribution width (RBC) [Entitic vol] 47.5 fL 35.1-43.9 [facility] Erythrocyte distribution width (RBC) [Ratio] 13.9 % 11.6-14.6 [facility] Immature granulocytes/100 WBC (Bld) 0.200 % 0.0-0.9 [facility] Comment on above: IG% - Immature Granu locytes (promyelocytes, myelocytes and metamyelocytes) > 1% indicates that a LEFT SHIFT is Present. MCH (RBC) [Entitic mass] 29.7 pg 27.0-32.0 [facility] Nucleated RBC/100 WBC (Bld) [Ratio] 0 % 0-5 [facility] MCHC Auto (RBC) [Mass/Vol]Or dered By: Dr. Turner on 05-02-2022 MCHC (RBC) [Mass/Vol] 32.0 g/dL 32-36 [facility] No Panel InformationOrdered By: Dr. Turner on 05-02-2022 Estimated GFR (MDRD) Amer 72 mL/min >60 [facility] Comment on above: GFR Calc Estimated GFR (MDRD) Non-Af Amer 60 mL/min >60 [facility] Comment on above: Non- GFR Calc Thyroid Stimulating Hormone (TSH) 7.93 uIU/mL 0.358-3.74 [facility] Platelets bldOrdered By: Dr. Turner on 05-02-2022 Platelets (Bld) [#/Vol] 267 10*3/uL 150-450 [facility] Serum or plasma albumin breanna urement (mass/volume)Ordered By: Dr. Turner on 05-02-2022 Albumin [Mass/Vol] 3.9 g/dL 3.2-5.0 [facility] Serum or plasma albumin/glob ulin mass ratioOrdered By: Dr. Turner on 05-02-2022 Albumin/Globulin [Mass ratio] 1.2 {ratio} 0.9-2.4 [facility] Serum or plasma calcium breanna urement (mass/volume)Ordered By: Dr. Turner on 05-02-2022 Calcium [Mass/Vol] 8.8 mg/dL 8.5-10.1 [facility] Serum or plasma creatinine m easurement (mass/volume)Ordered By: Dr. Turner on 05-02-2022 Creatinine [Mass/Vol] 1.32 mg/dL 0.70-1.30 [facility] Comment on above: The validity of the calculated GFR & GFRAA in patients over 70 years has not been determined. Clinical correlation is essential. Serum or plasma urea nitroge n measurement (mass/volume)Ordered By: Dr. Turner on 05-02-2022 Urea nitrogen [Mass/Vol] 13 mg/dL 7-18 [facility] Thin prep Papanicolaou smear with manual screeningOrdered By: Dr. Turner on 05-02-2022 Thin prep Papanicolaou smear with manual screening 28 U/L 15-37 [facility] Thin prep Papanicolaou smear with manual screening 6 5-15 [facility] Laboratory - Microbiology an d Antimicrobial susceptibilityOrdered By: Dr. Turner on 04-16-2022 SARS-CoV-2 (COVID-19) RNA COSTA+probe Ql (Unsp spec) Not detected Not Detect [facility] Comment on above: Normal Reference Ran ge: Not DetectedMethod:(RT-PCR) real-time reverse transcriptase PCRLuminex NITZA Instrument*The Food and Drug Administration (FDA) has issued an Emergency Use Authorization (EAU) for the NITZA SARS-CoV-2 Assay for the rapid detection of the virus that causes COVID-19. This test has been validated, but the [facility] of this validation is pending.*Negative results do not preclude infection and should not be used as the sole basis for treatment or patient management. Optimum specimen types and timing for peak viral levels during infections caused by SARS-CoV-2 have not been determined. Collection of multiple specimens from the same patient may be necessary to detect the virus. The possibility of a false negative result should be considered if the patient has clinical presentation or has had recent exposure. No Panel InformationOrdered By: Dr. Turner on 04-16-2022 Influenza Types A,B Direct FA (KARLA) [facility] RSV Ag EIAOrdered By: Dr. Rai salazar on 04-16-2022 RSV Ag Immune stain Ql (Tiss) [facility] Basophil percentageOrdered B y: Dr. Coker on 04-03-2022 Basophil percentage 2.2 mg/dL 2.5-4.9 [facility] Chloride [Moles/Vol] 104 mmol/L 98-107 [facility] Glucose [Mass/Vol] 94 mg/dL 74-106 [facility] Potassium [Moles/Vol] 4.1 mmol/L 3.5-5.1 [facility] Sodium [Moles/Vol] 139 mmol/L 136-145 [facility] Laboratory - Chemistry and C hemistry - challengeOrdered By: Dr. Coker on 04-03-2022 CO2 [Moles/Vol] 28.0 mmol/L 21.0-32.0 [facility] Urea nitrogen/Creatinine [Mass ratio] 13.1 mg/mg 10-20 [facility] No Panel InformationOrdered By: Dr. Coker on 04-03-2022 Estimated GFR (MDRD) Amer 74 mL/min >60 [facility] Comment on above: GFR Calc Estimated GFR (MDRD) Non-Af Amer 61 mL/min >60 [facility] Comment on above: Non- GFR Calc Serum or plasma albumin breanna urement (mass/volume)Ordered By: Dr. Coker on 04-03-2022 Albumin [Mass/Vol] 3.9 g/dL 3.2-5.0 [facility] Serum or plasma calcium breanna urement (mass/volume)Ordered By: Dr. Coker on 04-03-2022 Calcium [Mass/Vol] 8.7 mg/dL 8.5-10.1 [facility] Serum or plasma creatinine m easurement (mass/volume)Ordered By: Dr. Coker on 04-03-2022 Creatinine [Mass/Vol] 1.30 mg/dL 0.70-1.30 [facility] Comment on above: The validity of the calculated GFR & GFRAA in patients over 70 years has not been determined. Clinical correlation is essential. Serum or plasma urea nitroge n measurement (mass/volume)Ordered By: Dr. Coker on 04-03-2022 Urea nitrogen [Mass/Vol] 17 mg/dL 7-18 [facility] Absolute lymphocyte counton 12-07-2021 Lymphocytes Auto (Unsp spec) [#/Vol] 0.87 10*3/uL 0.83-4.51 [facility] Work Phone: Basophil percentageon 2021 Basophils/100 WBC (Bld) 1.1 % 0-1 [facility] Work Phone: Chloride [Moles/Vol] 106 mmol/L 98-107 [facility] Work Phone: Eosinophils/100 WBC (Bld) 2.2 % 0-5 [facility] Work Phone: Glucose [Mass/Vol] 150 mg/dL 74-106 [facility] Work Phone: Comment on above: Fasting Glucose resu lt greater than or equal to 126 mg/dL suggests DIABETES MELLITUS per A.D.A. criteria. Neutrophils (Bld) [#/Vol] 6.4 10*3/uL 2.0-7.7 [facility] Work Phone: Neutrophils/100 WBC (Bld) 81.0 % 47-70 [facility] Work Phone: Potassium [Moles/Vol] 4.5 mmol/L 3.5-5.1 [facility] Work Phone: Sodium [Moles/Vol] 138 mmol/L 136-145 [facility] Work Phone: WBC (Bld) [#/Vol] 7.9 10*3/uL 4.4-11.0 [facility]: Blood erythrocytes count (nu mber/volume)on 12-07-2021 RBC (Bld) [#/Vol] 4.76 10*6/uL 4.6-6.2 [facility]: Blood hemoglobin measurement (mass/volume)on 12-07-2021 Hemoglobin (Bld) [Mass/Vol] 14.8 g/dL 13.0-16.5 [facility] Work Phone: Blood lymphocytes/100 leukoc yteson 12-07-2021 Lymphocytes/100 WBC (Bld) 11.1 % 19-41 [facility] Work Phone: Blood monocytes/100 leukocyt eson 12-07-2021 Monocytes/100 WBC (Bld) 2.8 % 0-10 [facility] Work Phone: Blood platelet mean volumeon 12-07-2021 Platelet mean volume (Bld) [Entitic vol] 10.4 fL 6.2-12.0 [facility] Work Phone: Determination of erythrocyte mean corpuscular volume (MCV)on 12-07-2021 MCV (RBC) [Entitic vol] 94.5 fL 80-94 [facility] Work Phone: Hematocrit Auto (Bld) [Volum e fraction]on 12-07-2021 Hematocrit (Bld) [Volume fraction] 45.0 % 40-54 [facility] Work Phone: Laboratory - Chemistry and C hemistry - challengeon 12-07-2021 CO2 [Moles/Vol] 27.0 mmol/L 21.0-32.0 [facility] Work Phone: Urea nitrogen/Creatinine [Mass ratio] 13.4 mg/mg 10-20 [facility] Work Phone: Laboratory - Hematology and Cell countson 12-07-2021 Erythrocyte distribution width (RBC) [Entitic vol] 45.8 fL 35.1-43.9 [facility] Work Phone: Erythrocyte distribution width (RBC) [Ratio] 13.3 % 11.6-14.6 [facility] Work Phone: Immature granulocytes/100 WBC (Bld) 1.800 % 0.0-0.9 [facility] Work Phone: Comment on above: IG% - Immature Granu locytes (promyelocytes, myelocytes and metamyelocytes) > 1% indicates that a LEFT SHIFT is Present. MCH (RBC) [Entitic mass] 31.1 pg 27.0-32.0 [facility] Work Phone: Nucleated RBC/100 WBC (Bld) [Ratio] 0 % 0-5 [facility] Work Phone: MCHC Auto (RBC) [Mass/Vol]on 12-07-2021 MCHC (RBC) [Mass/Vol] 32.9 g/dL 32-36 [facility] Work Phone: No Panel Informationon 12-07 Estimated GFR (MDRD) Amer 67 mL/min >60 [facility] Work Phone: Comment on above: GFR Calc Estimated GFR (MDRD) Non-Af Amer 55 mL/min >60 [facility] Work Phone: Comment on above: Non- GFR Calc Platelets bldon 12-07-2021 Platelets (Bld) [#/Vol] 302 10*3/uL 150-450 [facility] Work Phone: Serum or plasma calcium breanna urement (mass/volume)on 12-07-2021 Calcium [Mass/Vol] 9.2 mg/dL 8.5-10.1 [facility] Work Phone: Serum or plasma creatinine m easurement (mass/volume)on 12-07-2021 Creatinine [Mass/Vol] 1.42 mg/dL 0.70-1.30 [facility] Work Phone: Comment on above: The validity of the calculated GFR & GFRAA in patients over 70 years has not been determined. Clinical correlation is essential. Serum or plasma urea nitroge n measurement (mass/volume)on 12-07-2021 Urea nitrogen [Mass/Vol] 19 mg/dL 7-18 [facility] Work Phone: Thin prep Papanicolaou smear with manual screeningon 12-07-2021 Thin prep Papanicolaou smear with manual screening 5 5-15 [facility] Work Phone: Absolute lymphocyte counton 11-01-2021 Lymphocytes Auto (Unsp spec) [#/Vol] 1.80 10*3/uL 0.83-4.51 [facility] Work Phone: Basophil percentageon 2021 Basophils/100 WBC (Bld) 1.3 % 0-1 [facility] Work Phone: Bilirubin [Mass/Vol] 0.70 mg/dL 0.20-1.00 [facility] Work Phone: Comment on above: For patients on eltr ombopag therapy, use of Dimension [place] TBIL is not recommended. Chloride [Moles/Vol] 104 mmol/L 98-107 [facility] Work Phone: Eosinophils/100 WBC (Bld) 4.6 % 0-5 [facility] Work Phone: Glucose [Mass/Vol] 102 mg/dL 74-106 [facility] Work Phone: Comment on above: Fasting Glucose resu lt from 100 to 125 mg/dL suggests IMPAIRED HOMEOSTASIS per A.D.A. criteria. Neutrophils (Bld) [#/Vol] 4.5 10*3/uL 2.0-7.7 [facility] Work Phone: Neutrophils/100 WBC (Bld) 59.8 % 47-70 [facility] Work Phone: Potassium [Moles/Vol] 4.4 mmol/L 3.5-5.1 [facility] Work Phone: Protein [Mass/Vol] 7.1 g/dL 6.4-8.2 [facility] Work Phone: Sodium [Moles/Vol] 137 mmol/L 136-145 [facility] Work Phone: Testosterone [Mass/Vol] 492.88 ng/dL [facility] Work Phone: Comment on above: CENTRAL 90% REFERENC E RANGES MALE AGE <50 197.44 - 669.58 ng/dL MALE AGE > or = 50 187.72 - 684.19 ng/dL FEMALE AGE <50 8.38 - 35.01 ng/dL FEMALE AGE > or = 50 <7.00 - 35.92 ng/dL Effective as of 12/19/20 WBC (Bld) [#/Vol] 7.5 10*3/uL 4.4-11.0 [facility] Work Phone: Blood erythrocytes count (nu mber/volume)on 11-01-2021 RBC (Bld) [#/Vol] 4.96 10*6/uL 4.6-6.2 [facility] Work Phone: Blood hemoglobin measurement (mass/volume)on 11-01-2021 Hemoglobin (Bld) [Mass/Vol] 15.4 g/dL 13.0-16.5 [facility] Work Phone: Blood lymphocytes/100 leukoc yteson 11-01-2021 Lymphocytes/100 WBC (Bld) 24.2 % 19-41 [facility] Work Phone: Blood monocytes/100 leukocyt eson 11-01-2021 Monocytes/100 WBC (Bld) 9.8 % 0-10 [facility] Work Phone: Blood platelet mean volumeon 11-01-2021 Platelet mean volume (Bld) [Entitic vol] 10.4 fL 6.2-12.0 [facility] Work Phone: Determination of erythrocyte mean corpuscular volume (MCV)on 11-01-2021 MCV (RBC) [Entitic vol] 94.6 fL 80-94 [facility] Work Phone: Hematocrit Auto (Bld) [Volum e fraction]on 11-01-2021 Hematocrit (Bld) [Volume fraction] 46.9 % 40-54 [facility] Work Phone: Laboratory - Chemistry and C hemistry - challengeon 11-01-2021 ALP [Catalytic activity/Vol] 84 U/L 45-117 [facility] Work Phone: ALT [Catalytic activity/Vol] 54 U/L 16-61 [facility] Work Phone: CO2 [Moles/Vol] 27.0 mmol/L 21.0-32.0 [facility] Work Phone: Globulin (S) [Mass/Vol] 3.2 g/dL 2.2-4.2 [facility] Work Phone: Urea nitrogen/Creatinine [Mass ratio] 10.4 mg/mg 10-20 [facility] Work Phone: Laboratory - Hematology and Cell countson 11-01-2021 Erythrocyte distribution width (RBC) [Entitic vol] 46.9 fL 35.1-43.9 [facility] Work Phone: Erythrocyte distribution width (RBC) [Ratio] 13.5 % 11.6-14.6 [facility] Work Phone: Immature granulocytes/100 WBC (Bld) 0.300 % 0.0-0.9 [facility] Work Phone: Comment on above: IG% - Immature Granu locytes (promyelocytes, myelocytes and metamyelocytes) > 1% indicates that a LEFT SHIFT is Present. MCH (RBC) [Entitic mass] 31.0 pg 27.0-32.0 [facility] Work Phone: Nucleated RBC/100 WBC (Bld) [Ratio] 0 % 0-5 [facility] Work Phone: MCHC Auto (RBC) [Mass/Vol]on 11-01-2021 MCHC (RBC) [Mass/Vol] 32.8 g/dL 32-36 [facility] Work Phone: No Panel Informationon 11-01 Estimated GFR (MDRD) Amer 66 mL/min >60 [facility] Work Phone: Comment on above: GFR Calc Estimated GFR (MDRD) Non-Af Amer 54 mL/min >60 [facility] Work Phone: Comment on above: Non- GFR Calc Prostate Specific Antigen Screen 0.42 ng/mL 0.00-4.00 [facility] Work Phone: Comment on above: This test was perfor med using the TPSA assay method for [employer] chemistry system. Values obtained with differentassay methods cannot be used interchangably.When changing PSA assays in the course of monitoring apatient, additional sequential testing should be carriedout to confirm baseline values. Thyroid Stimulating Hormone (TSH) 1.15 uIU/mL 0.358-3.74 [facility] Work Phone: Platelets bldon 11-01-2021 Platelets (Bld) [#/Vol] 307 10*3/uL 150-450 [facility] Work Phone: Serum or plasma albumin breanna urement (mass/volume)on 11-01-2021 Albumin [Mass/Vol] 3.9 g/dL 3.2-5.0 [facility] Work Phone: Serum or plasma albumin/glob ulin mass ratioon 11-01-2021 Albumin/Globulin [Mass ratio] 1.2 {ratio} 0.9-2.4 [facility] Work Phone: Serum or plasma calcium breanna urement (mass/volume)on 11-01-2021 Calcium [Mass/Vol] 9.0 mg/dL 8.5-10.1 [facility] Work Phone: Serum or plasma creatinine m easurement (mass/volume)on 11-01-2021 Creatinine [Mass/Vol] 1.44 mg/dL 0.70-1.30 [facility] Work Phone: Comment on above: The validity of the calculated GFR & GFRAA in patients over 70 years has not been determined. Clinical correlation is essential. Serum or plasma urea nitroge n measurement (mass/volume)on 11-01-2021 Urea nitrogen [Mass/Vol] 15 mg/dL 7-18 [facility] Work Phone: Thin prep Papanicolaou smear with manual screeningon 11-01-2021 Thin prep Papanicolaou smear with manual screening 27 U/L 15-37 [facility] Work Phone: Thin prep Papanicolaou smear with manual screening 6 5-15 [facility] Work Phone: Basophil percentageon 2021 Basophil percentage 1.2 mg/dL 2.5-4.9 [facility] Work Phone: Chloride [Moles/Vol] 108 mmol/L 98-107 [facility] Work Phone: Glucose [Mass/Vol] 164 mg/dL 74-106 [facility] Work Phone: Comment on above: Fasting Glucose resu lt greater than or equal to 126 mg/dL suggests DIABETES MELLITUS per A.D.A. criteria. Potassium [Moles/Vol] 3.9 mmol/L 3.5-5.1 [facility] Work Phone: Sodium [Moles/Vol] 140 mmol/L 136-145 [facility] Work Phone: Laboratory - Chemistry and C hemistry - challengeon 07-06-2021 CO2 [Moles/Vol] 28.0 mmol/L 21.0-32.0 [facility] Work Phone: Urea nitrogen/Creatinine [Mass ratio] 11.8 mg/mg 10-20 [facility] Work Phone: No Panel Informationon 07-06 Estimated GFR (MDRD) Amer 76 mL/min >60 [facility] Work Phone: Comment on above: GFR Calc Estimated GFR (MDRD) Non-Af Amer 63 mL/min >60 [facility] Work Phone: Comment on above: Non- GFR Calc Serum or plasma albumin breanna urement (mass/volume)on 07-06-2021 Albumin [Mass/Vol] 3.6 g/dL 3.2-5.0 [facility] Work Phone: Serum or plasma calcium breanna urement (mass/volume)on 07-06-2021 Calcium [Mass/Vol] 8.6 mg/dL 8.5-10.1 [facility] Work Phone: Serum or plasma creatinine m easurement (mass/volume)on 07-06-2021 Creatinine [Mass/Vol] 1.27 mg/dL 0.70-1.30 [facility] Work Phone: Comment on above: The validity of the calculated GFR & GFRAA in patients over 70 years has not been determined. Clinical correlation is essential. Serum or plasma urea nitroge n measurement (mass/volume)on 07-06-2021 Urea nitrogen [Mass/Vol] 15 mg/dL 7-18 [facility] Work Phone: Basophil percentageon 2021 Basophil percentage 2.0 mg/dL 2.5-4.9 [facility] Work Phone: Chloride [Moles/Vol] 104 mmol/L 98-107 [facility] Work Phone: Glucose [Mass/Vol] 102 mg/dL 74-106 [facility] Work Phone: Comment on above: Fasting Glucose resu lt from 100 to 125 mg/dL suggests IMPAIRED HOMEOSTASIS per A.D.A. criteria. Potassium [Moles/Vol] 4.1 mmol/L 3.5-5.1 [facility] Work Phone: Comment on above: Slight Hemolysis, Re sult may be falsely increased. Sodium [Moles/Vol] 139 mmol/L 136-145 [facility] Work Phone: Laboratory - Chemistry and C hemistry - challengeon 06-08-2021 CO2 [Moles/Vol] 28.0 mmol/L 21.0-32.0 [facility] Work Phone: Urea nitrogen/Creatinine [Mass ratio] 13.3 mg/mg 10-20 [facility] Work Phone: No Panel Informationon 06-08 Estimated GFR (MDRD) Amer 81 mL/min >60 [facility] Work Phone: Comment on above: GFR Calc Estimated GFR (MDRD) Non-Af Amer 67 mL/min >60 [facility] Work Phone: Comment on above: Non- GFR Calc Serum or plasma albumin breanna urement (mass/volume)on 06-08-2021 Albumin [Mass/Vol] 4.0 g/dL 3.2-5.0 [facility] Work Phone: Serum or plasma calcium breanna urement (mass/volume)on 06-08-2021 Calcium [Mass/Vol] 8.9 mg/dL 8.5-10.1 [facility] Work Phone: Serum or plasma creatinine m easurement (mass/volume)on 06-08-2021 Creatinine [Mass/Vol] 1.20 mg/dL 0.70-1.30 [facility] Work Phone: Comment on above: The validity of the calculated GFR & GFRAA in patients over 70 years has not been determined. Clinical correlation is essential. Serum or plasma urea nitroge n measurement (mass/volume)on 06-08-2021 Urea nitrogen [Mass/Vol] 16 mg/dL 7-18 [facility] Work Phone: Basophil percentageon 2021 Chloride [Moles/Vol] 105 mmol/L 98-107 [facility] Work Phone: Glucose [Mass/Vol] 103 mg/dL 74-106 [facility] Work Phone: Comment on above: Fasting Glucose resu lt from 100 to 125 mg/dL suggests IMPAIRED HOMEOSTASIS per A.D.A. criteria.Please note revised GLUCOSE reference range effective 2017. Potassium [Moles/Vol] 4.5 mmol/L 3.5-5.1 [facility] Work Phone: Sodium [Moles/Vol] 140 mmol/L 136-145 [facility] Work Phone: Laboratory - Chemistry and C hemistry - challengeon 05-30-2021 CO2 [Moles/Vol] 29.0 mmol/L 21.0-32.0 [facility] Work Phone: Urea nitrogen/Creatinine [Mass ratio] 12.6 mg/mg 10-20 [facility] Work Phone: No Panel Informationon 05-30 Estimated GFR (MDRD) Amer 76 mL/min >60 [facility] Work Phone: Comment on above: GFR Calc Estimated GFR (MDRD) Non-Af Amer 63 mL/min >60 [facility] Work Phone: Comment on above: Non- GFR Calc Serum or plasma calcium breanna urement (mass/volume)on 05-30-2021 Calcium [Mass/Vol] 9.2 mg/dL 8.5-10.1 [facility] Work Phone: Serum or plasma creatinine m easurement (mass/volume)on 05-30-2021 Creatinine [Mass/Vol] 1.27 mg/dL 0.70-1.30 [facility] Work Phone: Comment on above: The validity of the calculated GFR & GFRAA in patients over 70 years has not been determined. Clinical correlation is essential. Serum or plasma urea nitroge n measurement (mass/volume)on 05-30-2021 Urea nitrogen [Mass/Vol] 16 mg/dL 7-18 [facility] Work Phone: Thin prep Papanicolaou smear with manual screeningon 05-30-2021 Thin prep Papanicolaou smear with manual screening 6 5-15 [facility] Work Phone: Clinical Summary: HMSPatient IDon 08-19-2019 SOP [facility] Work Phone: Office Visit: New - 1st visi t with practice, Rm: 12on 08-19-2019 NEGATED: Highlighted rowTobacco smoking status NHIS Tobacco smoking status CTIS [facility] Work Phone: XR Finger(s) Min 2 Views [place] 03-31-2017 XR Finger(s) Min 2 Views Left Exam Date/Time:03/31/2017 09:52 ESTReason for Exam:Pain, TraumaticReportExam ination: 3 views left third digit.INDICATION: Smashed middle finger with a hammer 4 days ago.COMPARISON: None.FINDINGS:There is soft tissue swelling and possible injury to the nail at the distal endof the third finger.I identify no dislocation or fracture or radiopaque foreign body.IMPRESSION:Sof t tissue swelling. No evidence of long finger dislocation or fracture. FINAL REPORT Dictated: 03/31/2017 9:56 am Juventino Casarez DOigned (Electronic Signature): 03/31/2017 9:56 amSigned by: Juventino Casarez DO Technologist: TRThom [facility] Culture, urine Bacteria identified Cx Nom (U) Culture exhibits no growth. [facility] Work Phone: No Panel Information Influenza Types A,B Direct FA (KARLA) [facility] Work Phone: RSV Ag EIA RSV Ag Immune stain Ql (Tiss) [facility] Work Phone: Vital Signs Date Time Vital Sign Value Performing Clinician Facility 08-06-2023 08:47-0400 Body height 193.[address] Neel Turner Work Phone: [facility] 08-06-2023 08:47-0400 Body mass index (BMI) [Ratio] 34.4 kg/m2 Dr. Neel Turner Work Phone: [facility] 08-06-2023 08:47-0400 Body weight 128.[address] Neel Turner Work Phone: [facility] 08-06-2023 08:47-0400 Diastolic blood pressure 100 mm[Hg] Dr. Neel Turner Work Phone: [facility] 08-06-2023 08:47-0400 Heart rate 108 /min Dr. Neel Turner Work Phone: [facility] 08-06-2023 08:47-0400 Respiratory rate 18 /min Dr. Neel Turner Work Phone: [facility] 08-06-2023 08:47-0400 Systolic blood pressure 143 mm[Hg] Dr. Neel Turner Work Phone: [facility] 07-14-2023 14:30-0500 Diastolic blood pressure 82 mm[Hg] Logan Griffin DO Work Phone: [facility] 07-14-2023 14:30-0500 Heart rate 79 /min Logan Griffin DO Work Phone: [facility] 07-14-2023 14:30-0500 Respiratory rate 15 /min Logan Abernathyservando DO Work Phone: [facility] 07-14-2023 14:30-0500 SaO2% (BldA) [Mass fraction] 96 % Logan Irene DO Work Phone: [facility] 07-14-2023 14:30-0500 Systolic blood pressure 123 mm[Hg] Logan Abernathyservando DO Work Phone: [facility] 07-14-2023 12:00-0500 Body height 193 cm Logan Irene DO Work Phone: [facility] 07-14-2023 12:00-0500 Body mass index (BMI) [Ratio] 33.47 kg/m2 Logan Irene DO Work Phone: [facility] 07-14-2023 12:00-0500 Body temperature 97.39 [degF] Logan Abernathyservando DO Work Phone: [facility] 07-14-2023 12:00-0500 Body weight 124.74 kg Logan Abernathyservando DO Work Phone: [facility] NEGATED: Highlighted [id number] 12:23-0400 BMI (Body Mass Index) 34.21 kg/m2 Balaji García [employer] [facility] Work Phone: NEGATED: Highlighted [id number] 12:23-040 Body weight 127.01 kg Balaji García [employer] [facility] Work Phone: NEGATED: Highlighted [id number] Body weight 127 kg Balaji García [employer] [facility] Work Phone: NEGATED: Highlighted [id number] Height 193.04 cm Balaji García [facility] Work Phone: NEGATED: Highlighted [id number] 12:23-0400 Height 193 cm Balaji García [facility] Work Phone: Encounters Encounter Date Encounter Type Care Provider Facility Start: 10-07-2024 End: 10-07-[address] Neel Turner MD Work Phone: [facility] Work Phone: Start: 10-07-2024 End: 10-07-[address] Neel Turner MD -Physical Therapy Work Phone: Start: 09-28-[address] Neel gonzalez MD -Physical Therapy Work Phone: Start: 09-25-2024 End: 09-25-[address] Neel Turner MD Work Phone: [facility] Work Phone: Start: 09-25-2024 End: 09-25-[address] Neel Turner MD -Laboratory Work Phone: Start: 09-25-2024 End: 09-25-2024 ambulatory Neel Turner Facility:[facility] Start: 09-06-2024 End: 09-06-[address] Neel Turner MD Work Phone: [facility] Work Phone: Start: 09-06-2024 End: 09-06-[address] Neel Turner MD -Laboratory, Specimen Work Phone: Start: 09-06-2024 End: 09-06-2024 ambulatory Neel Chi Darlyn Facility:[facility] Start: 08-31-[address] Neel gonzalez MD -Physical Therapy Work Phone: Start: 08-13-2024 End: 08-13-[address] Neel Turner MD Work Phone: [facility] Work Phone: Start: 08-13-2024 End: 08-13-[address] Neel Turner MD -Radiology, [facility] Work Phone: Start: 08-13-2024 End: 08-13-2024 ambulatory Neel Chi Darlyn Facility:[facility] Start: 07-16-2024 End: 07-16-[address] Neel Turner MD -Laboratory Work Phone: Start: 07-16-2024 End: 07-16-2024 ambulatory Neel Chi Darlyn Facility:[facility] Start: 05-28-2024 End: 05-28-[address] Neel Turner MD -Laboratory Work Phone: Start: 05-28-2024 End: 05-28-2024 ambulatory Neel Chi Darlyn Facility:[facility] Start: 02-09-2024 End: 02-09-2024 ambulatory Neel Chi Darlyn Facility:[facility] Start: 12-26-2023 End: 12-26-2023 ambulatory Neel Chi Darlyn Facility:[facility] Start: 11-14-2023 End: 11-14-2023 ambulatory Neel Chi Darlyn Facility:[facility] Start: 10-20-2023 ambulatory Gail Torres Fa cility:[facility] Start: 10-14-2023 End: 10-14-2023 ambulatory Neel Chi Darlyn Facility:[facility] Start: 08-15-2023 Non-patient / Non-visit Dr. Chavo Turner Work Phone: [facility] Start: 08-15-2023 End: 08-15-[address] Neel Turner Work Phone: [facility] Work Phone: Start: 08-15-2023 End: 08-15-[address] Neel Turner Work Phone: [facility]-Cardiovascula r Services Work Phone: Start: 08-11-2023 End: 08-11-[address] Neel Turner Work Phone: [facility] Work Phone: Start: 08-11-2023 End: 08-11-[address] Neel Turner Work Phone: [facility]-Pulmonary Services/Neurology Work Phone: Start: 08-06-2023 End: 08-06-[address] Neel Turner Work Phone: [facility] Work Phone: Start: 08-06-2023 End: 08-06-[address] Neel Turner Work Phone: [facility]-Laboratory, Phy Office [address] [place] [address] Start: 08-06-2023 End: 08-06-[address] Neel Turner Work Phone: [facility] Work Phone: Start: 07-29-2023 End: 07-29-2023 ambulatory [facility] Work Phone: Start: 07-29-2023 End: 07-29-2023 Patient encounter procedure [facility] Work Phone: Start: 07-14-2023 End: 02-19-2024 Emergency department patient visit LOGAN GRIFFIN [facility] Start: 07-14-2023 End: 07-14-2023 Emergency department patient visit Logan Tomas Josemanuelservando DO Work Phone: [facility] Emergency Medicine Comment on above: Syncope, unspecified syncope type (Primary Dx); Volume depletion Start: 05-09-2023 End: 05-09-2023 ambulatory [facility] Work Phone: Start: 05-09-2023 End: 05-09-2023 [facility] Start: 02-27-2023 End: 02-27-2023 Patient encounter procedure [facility]-Pulmonary Services/Neurology Work Phone: Start: 02-13-2023 End: 02-13-2023 Patient encounter procedure [facility]-Pulmonary Services/Neurology Work Phone: Start: 06-27-2022 End: 06-27-2022 ambulatory [facility] Work Phone: Start: 06-27-2022 End: 06-27-2022 [facility] Start: 05-02-2022 End: 05-02-2022 ambulatory [facility] Work Phone: Start: 05-02-2022 End: 05-02-2022 [facility] Start: 04-16-2022 End: 04-16-2022 ambulatory [facility] Work Phone: Start: 04-16-2022 End: 04-16-2022 Patient encounter procedure [facility]-Pulmonary Services/Neurology Start: 04-03-2022 End: 04-03-2022 ambulatory [facility] Work Phone: Start: 04-03-2022 End: 04-03-2022 [facility] Start: 12-07-2021 End: 12-07-[address] Neel Turner Work Phone: [facility]-Cat Scan, [facility] Start: 12-05-2021 Non-patient / Non-visit Dr. Chavo Turner Work Phone: [facility] Start: 12-05-2021 End: 12-05-[address] Neel Turner Work Phone: [facility]-Cardiovascula r Services Start: 11-01-2021 End: 11-01-2021 Patient encounter procedure [facility]-Laboratory, Phy Office 3rd Flr Start: 09-04-2021 End: 09-04-2021 Patient encounter procedure [facility]-Radiology, [facility] Start: 07-06-2021 End: 07-06-2021 Patient encounter procedure [facility]-Laboratory, Phy Office 3rd Flr Start: 06-08-2021 End: 06-08-2021 Patient encounter procedure [facility]-Laboratory, Phy Office 3rd Flr Start: 05-30-2021 End: 05-30-2021 Patient encounter procedure [facility]-Laboratory, Phy Office 3rd Flr Start: 05-24-2021 Patient encounter procedure [facility]-Ultrasound, [facility] Start: 08-19-2019 End: 08-21-2019 Patient encounter procedure Roby Azevedo MD Work Phone: [facility] Work Phone: Start: 03-31-2017 End: 03-31-2017 Emergency department patient visit [facility] Facility:[facility] Procedures Date Procedure Procedure Detail Performing Clinician Start: 09-06-2024 SARS-CoV-2, Influenz a & RSV (PCR) Dr. Neel Turner MD Work Phone: Start: 08-13-2024 X-ray of lumbosacral spine Dr. Neel Turner MD Work Phone: Start: 07-29-2023 Magnetic resonance angiography of head without contrast Start: 07-29-2023 MRI of brain with contrast Start: 07-14-2023 ECG 12-LEAD LOGAN LE MASTERS Start: 07-14-2023 EXTRA URINE PHIPPS TUBE C AMERON LEMASTERS Start: 07-14-2023 URINALYSIS MICROSCOP IC WITH REFLEX [...] 07-14-2023 INFLUENZA A AND B PCR C ALFREDO GRIFFIN Start: 07-14-2023 SARS-COV-2 PCR LOGAN GRIFFIN [...] LOGAN GRIFFIN Start: 07-14-2023 Ct head/brain w/o co ntrast material Logan Griffin DO Work Phone: Start: [...] panel Logan Griffin DO Work Phone: Start: 02-27-2023 Coronavirus COVID-19 PCR Start: 02-27-2023 Influenza Types A,B Direct FA (KARLA) Start: 02-27-2023 Respiratory syncytia l virus antigen assay Start: 02-13-2023 Coronavirus COVID-19 PCR Start: 02-13-2023 Influenza Types A,B Direct FA (KARLA) Start: 02-13-2023 Respiratory syncytia l virus antigen assay Start: 12-07-2021 CT of head without contrast Dr. Neel Turner Work Phone: Start: 12-05-2021 MRI of joint of lowe r extremity Dr. Neel Turner Work Phone: Start: 09-04-2021 Radiography of ankle Start: 05-24-2021 Elastography Parenchyma/Organ Start: 05-24-2021 Ultrasonography of abdomen Start: 08-19-2019 End: 08-21-2019 Blood pressure screening [...] Tobacco non-user Roby Azevedo MD Work Phone: Influenza Types A,B Direct FA (KARLA) Influenza Types A,B Direct FA (KARLA) Respiratory syncytia l virus antigen assay Respiratory syncytia l virus antigen assay Urine culture Dr. Neel Turner Work Phone: NEGATED: Highlighted rowStart: 08-19-2019 End: 08-19-2019 Documentation of current medications Balaji García LPN Plan of Treatment Date Care Activity Detail Author Start: 01-24-2023 COVID-19 Vaccine ( season) COVID-19 Vaccine ( season) [facility] Start: 1988 DTaP/Tdap/Td Vaccine s (1 - Tdap) DTaP/Tdap/Td Vaccines (1 - Tdap) [facility] Start: 1984 Hepatitis C screening Hepatitis C Sc reening [facility] Start: 09-23-1967 MMR Vaccines (1 of 1 - Standard series) MMR Vaccines (1 of 1 - Standard series) [facility] Start: 1966 Hepatitis B Vaccines (1 of 3 - 3-dose series) Hepatitis B Vaccines (1 of 3 - 3-dose series) [facility] Start: 1966 HIV screening HIV Screening [facility] Start: 1966 Lipid panel Lipid Panel [facility] Start: 1966 Screening for malign ant neoplasm of colon [facility] Start: 1966 Yearly Adult Physical Yearly Adult P hysical [facility] ECG 12 lead ECG 12 lead ECG STAT 07/14/2023 2:47 PM EST [facility] Work Phone: End: 07-14-2023 Extra Urine Phipps Tube [facility] Work Phone: Comment on above: Once for 1 Occurrenc es starting 07/14/2023 until 07/14/2023 End: 07-14-2023 Urinalysis complete W Reflex Culture panel - Urine [facility] Service Area Work Phone: Comment on above: Once (Lab) for 1 Occ urrences starting 07/14/2023 until 07/14/2023 [facility] Work Phone: Payers Date Payer Category Payer Self-pay [id number] 2022 Unknown [id number] 2017 Unknown 1966 Unknown [id number] 2.16.84 [id number] Unknown [id number] 2.16.8 [id number] Unknown [id number] 2.16.8 [id number] Unknown [id number] 2.16.8 [id number] Unknown [id number] 2.16.8 [id number] Unknown [id number] 2.16.8 [id number] Unknown [id number] 2.16.8 [id number] Unknown [id number] 2.16.8 [id number] Unknown [id number] 2.16.8 [id number] Unknown [id number] 2.16.8 [id number] Unknown [id number] 2.16.8 [id number] Unknown [id number] 2.16.8 [id number] Unknown [id number] 2.16.8 [id number] Social History Date Type Detail Facility Start: 08-08-2020 End: 08-06-2023 Tobacco smoking status CTIS Unknown if ever smoked [facility] Start: 02-01-2019 Non-smoker [facility] Start: 1965 Sex Assigned At Male [facility] Start: 1965 Sex Assigned At Not on file [facility] Work Phone: Gender identity Not on file [facility] Work Phone: Start: 07-04-2023 End: 07-14-2023 Exposure to SARS-CoV-2 (event) Not sure [facility] Work Phone: Start: 08-06-2023 Tobacco smoking status NHIS Ex-smoker (finding) [facility] Start: 08-20-2024 End: 09-09-2024 Sex Male (finding) [facility] NEGATED: Highlighted rowStart: 08-19-2019 End: 08-19-2019 Alcohol use Alcohol use [facility] Work Phone: NEGATED: Highlighted rowStart: 08-19-2019 End: 08-19-2019 Details of drug misuse behavior Details of drug misuse behavior [facility] Work Phone: NEGATED: Highlighted rowStart: 08-19-2019 End: 08-19-2019 How many days of moderate to strenuous exercise, like a brisk walk, did you do in the last 7 days? How many days of moderate to strenuous exercise, like a brisk walk, did you do in the last 7 days? [facility] Work Phone: NEGATED: Highlighted rowStart: 08-19-2019 End: 08-19-2019 Assertion Never smoker [facility] Work Phone: Discharge summary 10-07-2024 Note Date & Type Note Facility 10-07-2024 Discharge summary Note Date/Time October 07, 2024 7:00p m [facility] Physical Therapy [facility] [address] [place] [address] [address] [place] [address] / REHABILITATION SERVICES DISCHARGE SUMMARY MR#: [id number] Acct: [id number] Name: DADA SOLO Rep #: [id number] : 1965 59 From: Carmine Landaverde DPT, OCS, CSCS Referring Dr.: Dr. Neel Turner MD Status: REG RCR Insurance: [facility] [employer] [facility]Y [facility]URANCE Discharge Summary D/C summary: It has been my pleasure to treat DADA SOLO referred by Dr. Neel Betancourt MD, with the diagnosis of LBP for a total of 6 visit(s). Discharge Date: 10/07/24 Please see the following information for a summary of their discharge status. Subjective Subjective: No pain today. overdid jogging and knees hurt. Back tolerated well. Wise gets him at 3 am at times. Takes ibuprofen and it goes away. Intermittent without reason. HEP exercises daily, does them every other day or so. Will continue ex via HEP. Dr. Turner in October for normal follow up. Pain LBP: Pain Intensity (Out of 10): 4 Overall Improvement % Improvement: 100 Objective Objective/Function: Full Lumbar ROM without pain today. walks normal and feeling better. Feels able to manage with HEP from here on out. wise pain more intermittent and maangeable with meds. Goals Goal 1:: Sleep without waking at night for 2 weeks Goal Progress: Goal Met Goal 2:: I appropriate HEP for strength, ROM and body mechanics/posture to limitfuture problems. Goal Progress: Goal Met Goal 3:: full lumbar ROM without deviations Goal Progress: Goal Met Goal 4:: Pain in LB and leg symptoms 80% better adn 1/10 at worst. Goal Progress: Goal Met Goal 5:: oswestry score 5 or better. Goal Progress: Progressing Plan Plan: d/c to HEP D/C Information d/c sentence: If there are questions or concerns regarding this patient's physical therapy, please feel free to call me at [phone]. Thank you for the referral of thispatient. Sincerely, Carmine Landaverde DPT, OCS, CSCS Balance/Gait/Functional tests Balance/Special Test Scores Oswestry Low Back Score: 11 Improvement % Improvement: 100 <Electronically signed by Carmine Landaverde DPT, OCS, CSCS> 10/07/24 1741 CC: Dr. Neel Turner MD ~ EBG Signed [facility] Work Phone: Discharge summary 10-07-2024 Note Date & Type Note Facility 10-07-2024 Discharge summary [facility] Radiology Diagnostic study note 08-13-2024 Note Date & Type Note Facility 08-13-2024 Radiology Diagnostic study note [facility] Imaging Services [address] [place] [address] L/S Spine Min 4 Views MR#: [id number] Acct: [id number] Name: DAAD SOLO Rep #: [id number] : 1965 M 58 From: Shalonda Balderrama MD PCP: Dr. Neel Turner MD Status: CARA DOVER Study:L/S Spine Min 4 Views Date of Exam: 08/13/24 Exam# [id number] Ordering Dr: Neel Turner MD EXAM: XR Lumbosacral Spine, 4 or 5 Views CLINICAL INDICATION: LOW BACK PAIN TECHNIQUE: Frontal, lateral and bilateral oblique views of the lumbar spine. COMPARISON: No relevant prior studies available. FINDINGS: VERTEBRAE: Moderate facet arthropathy of L4 to S1. No acute fracture. Normal alignment. SACRUM/COCCYX: Unremarkable as visualized. No acute fracture. DISC SPACES: No acute findings. No significant narrowing. SOFT TISSUES: Unremarkable. RAD/L/S Spine Min 4 Views IMPRESSION: Degenerative changes as above. Reading Location[facility] CC: Dr. Neel Turner MD ~ Day Care Attendant: Signed [facility] Emergency department Note 07-14-2023 Logan Griffin, DO - 07/14/2023 11:56 AM EST Note Date & Type Note Facility 07-14-2023 Emergency department Note Associated Order(s): ECG 12 lead HPI Chief Complaint Patient presents with Syncope Brought to ED per AFD squad after syncopal episode at [facility] while sitting at a table. He denies any pain or SOB before the episode or now. He is diaphoretic and tired. He did not hit his head or fall to ground. No injuries from episode. EKG done at Limitations to History: None HPI: 57-year-old male presents with concern for syncopal episode while at [facility]. Was seated. States he was feeling unwell [...] findings identified. Psychiatric: Appropriate mood and affect. [place] Coma Scale Score: 15 Patient History No [...] Urine Yellow Appearance, Urine Hazy (*) Specific [place], Urine 1.019 pH, Urine 5.0 Protein, Urine [...] performed using a different testing methodology at [facility] than at [facility]. Direct result comparisons should only be made [...] and has been validated for use at [facility]. Negative results do not preclude COVID-19 infections [...] and has been validated for use at [facility]. Negative results do not preclude Influenza A/B infections, and should not be used as the sole basis for diagnosis, treatment, or other management decisions. If Influenza A/B and RSV PCR results are negative, testing for Parainfluenza virus, Adenovirus and Metapneumovirus is routinely performed for [facility] pediatric oncology and intensive care inpatients, and is available on other patients by placing an add-on request. URINALYSIS WITH REFLEX CULTURE AND MICROSCOPIC Narrative: The following orders were created for panel order Urinalysis with Reflex Culture and Microscopic. Procedure Abnormality Status --------- ------ Urinalysis with Reflex C...[[id number]] Abnormal Final result Extra Urine Phipps Tube[[id number]] In process Please view results for these tests on the individual orders. EXTRA URINE PHIPPS TUBE CT head wo IV contrast Final Result No evidence of acute cortical infarct or intracranial hemorrhage. MACRO: None Signed by: Jonah Dugan 07/14/2023 1:29 PM Dictation workstation: [id number] XR chest 1 view Final Result No focal infiltrate or pneumothorax is identified. MACRO: None. Signed by: John Paul Sales 07/14/2023 12:27 PM Dictation workstation: [id number] Medical Decision Making: Patient appears well nontoxic. [...] ED Physician in the absence of a public health policy analyst: yes Comments: EKG interpreted by Dr. Logan Griffin: Normal sinus rhythm at 85 bpm. KS interval 188 ms. QTc of [address] ms. No evidence of ST elevation or depression at this time. Logan Griffin DO 07/14/23 1447 documented in this encounter [facility] Work Phone: Physician Emergency department Note 07-14-2023 Logan Griffin DO - 07/14/2023 11:56 AM EST Note Date & Type Note Facility 07-14-2023 Physician Emergency department Note Associated Order(s): ECG 12 lead HPI Chief Complaint Patient presents with Syncope Brought to ED per AFD squad after syncopal episode at [facility] while sitting at a table. He denies any pain or SOB before the episode or now. He is diaphoretic and tired. He did not hit his head or fall to ground. No injuries from episode. EKG done at Limitations to History: None HPI: 57-year-old male presents with concern for syncopal episode while at [facility]. Was seated. States he was feeling unwell [...] Urine Yellow Appearance, Urine Hazy (*) Specific [place], Urine 1.019 pH, Urine 5.0 Protein, Urine [...] performed using a different testing methodology at [facility] than at [facility]. Direct result comparisons should only be made [...] and has been validated for use at [facility]. Negative results do not preclude COVID-19 infections [...] and has been validated for use at [facility]. Negative results do not preclude Influenza A/B infections, and should not be used as the sole basis for diagnosis, treatment, or other management decisions. If Influenza A/B and RSV PCR results are negative, testing for Parainfluenza virus, Adenovirus and Metapneumovirus is routinely performed for [facility] pediatric oncology and intensive care inpatients, and is available on other patients by placing an add-on request. URINALYSIS WITH REFLEX CULTURE AND MICROSCOPIC Narrative: The following orders were created for panel order Urinalysis with Reflex Culture and Microscopic. Procedure Abnormality Status --------- ------ Urinalysis with Reflex C...[[id number]] Abnormal Final result Extra Urine Phipps Tube[[id number]] In process Please view results for these tests on the individual orders. EXTRA URINE PHIPPS TUBE CT head wo IV contrast Final Result No evidence of acute cortical infarct or intracranial hemorrhage. MACRO: None Signed by: Jonah Dugan 07/14/2023 1:29 PM Dictation workstation: [id number] XR chest 1 view Final Result No focal infiltrate or pneumothorax is identified. MACRO: None. Signed by: John Paul Sales 07/14/2023 12:27 PM Dictation workstation: [id number] Medical Decision Making: Patient appears well nontoxic. [...] ED Physician in the absence of a public health policy analyst: yes Comments: EKG interpreted by Dr. Logan Griffin: Normal sinus rhythm at 85 bpm. KS interval 188 ms. QTc of [address] ms. No evidence of ST elevation or depression at this time. Logan Griffin DO 07/14/23 1447 [facility] Work Phone: Evaluation note Note Date & Type Note Facility Evaluation note No assessment information availa ble [facility] Work Phone: Evaluation note Note Date & Type Note Facility Evaluation note Diagnosis Syncope, unspecified syncope type- Primary Volume depletion Volume depletion, unspecified documented in this encounter [facility] Work Phone: Evaluation note Note Date & Type Note Facility Evaluation note Diagnosis Onset Date Syncope acute [facility] Work Phone: Reason for referral (narrative) Consultation (Routine) - Authorized Note Date & Type Note Facility Reason for referral (narrati ve) Specialty Diagnoses / Procedures Referred By Corina nieto Referred To Contact Family Medicine / Primary Care Logan Griffin DO [address] [place] [address] Department [place] [address] Referral ID Status Reason Start Date Expiration Date Visits Requested Visits Authorized [id number] Authorized Specialty Services Required 07/14/2023 07/13/2024 1 1 [facility] Work Phone: Reason for referral (narrative) Note Date & Type Note Facility Reason for referral (narrative) No reason for referral information available [facility] Work Phone: Summary Purpose Family History No Family History Records Found Relationship Condition Age at Onset Recorded Date/T ej father Myocardial infarction 40 Cardiac disease Unknown grandfather Myocardial infarction 40 aunt Cardiac disease Unknown uncle Cardiac disease Unknown Advance Directives No Advanced Directives Records Found Advance Directive Response Recorded Date/ Time Advance Directives No January 8:23am Living Will No February 01, 2 019 8:23am Power of Rf Microwave Engineer No February 01, 2019 8:23am Advance Directive Response Recorded Date/ Time Advance Directives No January 7:23am Living Will No February 01 2 019 7:23am Power of Rf Microwave Engineer No February 01, 2019 7:23am Advance Directive Response Recorded Date/ Time Advance Directives No January 8:23am Chief Complaint Chief Complaint Description Start Date [...] has not been provided by the sender. 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 BLODD WORK Chief Complaint ANKLE PAIN LIGHTHEADNESS Chief Complaint CHILLS WITH OUT FEVE R Chief Complaint SCREENING VIRAL SYMPTOMS Chief Complaint Syncope and collapse Chief Complaint Syncope and collapse S/P SABIANIST 07/14 SYNCOPE Syncope and collapse Reason for Visit Syncope Chief Complaint Syncope and collapse S/P SABIANIST 07/14 SYNCOPE Syncope and collapse SYNCOPE *PETTY TO READ* Reason for Visit Syncope Chief Complaint Admit Date LBP RX HERE August 31, 2024 5:30 pm Chief Complaint Admit Date LBP RX HERE September 28, 2024 5:00pm Chief Complaint Admit Date LBP RX HERE October 07, 2024 5:30p m Additional Source Comments (unrecognized sect ion and content) No Status Records FoundNo Status Records FoundNo Status Records FoundNo Status Records Found INFORMATION SOURCE (unrecogn ized section and content) DATE CREATED AUTHOR 11/18/2017 [facility] DATE CREATED AUTHOR AUTHOR'S ORGANIZ ATION 07/16/2023 [facility] DATE CREATED AUTHOR AUTHOR'S ORGANIZ ATION 07/22/2023 [facility] DATE CREATED AUTHOR AUTHOR'S ORGANIZ ATION 10/09/2024 [facility] Reason for Visit (unrecogniz ed section and content) Reason For Visit Description New - 1st visit with practice Preliminary reason f or visit data, not yet signed by the author as of bilateral hand pain Reason Comments Syncope Brought to ED per AF D squad after syncopal episode at [facility] while sitting at a table. He denies any pain or SOB before the episode or now. He is diaphoretic and tired. He did not hit his head or fall to ground. No injuries from episode. EKG done at BS Goals (unrecognized section and content) Goals may be documented in a n alternate sectionGoals may be documented in an alternate sectionGoals may be documented in an alternate sectionGoals may be documented in an alternate sectionGoals may be documented in an alternate sectionGoals may be documented in an alternate sectionGoals may be documented in an alternate sectionGoals may be documented in an alternate sectionGoals may be documented in an alternate sectionGoals may be documented in an alternate sectionGoals may be documented in an alternate sectionGoals may be documented in an alternate sectionGoals may be documented in an alternate sectionGoals may be documented in an alternate sectionGoals may be documented in an alternate sectionGoals may be documented in an alternate sectionGoals may be documented in an alternate section Care Teams (unrecognized sec tion and content) Team Status: Active Member Role Status Dates Dr. Neel Turner MD Family Provider Active Dr. Neel Turner MD Primary Care Provider Active Team Status: Inactive Member Role Status Dates Dr. Neel Turner MD Primary Care Provider Active Dr. Marnie Coker DO Attending Provider Active Team Status: Inactive Member Role Status Dates Dr. Neel Turner MD Primary Care Provi jessie, Attending Provider, Referring Provider Active Team Status: Inactive Member Role Status Dates Dr. Neel Turner MD Primary Care Provider, Attending Provider Active Paraffiner Relationship Specialty Start Date End Date Norman Turner MD [address] [facility] [address] [address] PCP - General Gerontology 07/14/23 Team Status: Inactive Member Role Status Dates Dr. Neel Turner MD Primary Care Provider, Referring Provider Active Dr. Miguel Ptety MD Attending Provider Active Team Status: Active Member Role Status Dates Dr. Neel Turner MD Primary Care Provi jessie, Attending Provider, Referring Provider Active Team Status: Active Member Role Status Dates Dr. Neel Turner MD Primary Care Provider Active Dr. Jesus Zuñiga MD Attending Provider Active Team Status: Active Member Role Status Dates Dr. Neel Turner MD Primary Care Provider Active Team Status: Inactive Member Role Status Dates Dr. Neel Turner MD Primary Care Provider Active Start: May 28, 2024 End: May 28, 2024 Dr. Neel Turner MD Attending Provider Active Start: May 28, 2024 End: May 28, 2024 Dr. Neel Turner MD Referring Provider Active Start: May 28, 2024 End: May 28, 2024 Team Status: Inactive Member Role Status Dates Dr. Neel Turner MD Primary Care Provider Active Start: July 16, 2024 End: July 16, 2024 Dr. Neel Turner MD Attending Provider Active Start: July 16, 2024 End: July 16, 2024 Dr. Neel Turner MD Referring Provider Active Start: July 16, 2024 End: July 16, 2024 Team Status: Inactive Member Role Status Dates Dr. Neel Turner MD Primary Care Provider Active Start: August 13, 2024 End: August 13, 2024 Dr. Neel Turner MD Attending Provider Active Start: August 13, 2024 End: August 13, 2024 Dr. Neel Turner MD Referring Provider Active Start: August 13, 2024 End: August 13, 2024 Team Status: Active Member Role Status Dates Dr. Neel Turner MD Primary Care Provider Active Start: August 31, 2024 Dr. Neel Turner MD Attending Provider Active Start: August 31, 2024 Dr. Neel Turner MD Referring Provider Active Start: August 31, 2024 Team Status: Inactive Member Role Status Dates Dr. Neel Turner MD Primary Care Provider Active Start: September 06, 2024 End: September 06, 2024 Dr. Neel Turner MD Attending Provider Active Start: September 06, 2024 End: September 06, 2024 Team Status: Inactive Member Role Status Dates Dr. Neel Turner MD Primary Care Provider Active Start: September 25, 2024 End: September 25, 2024 Dr. Neel Turner MD Attending Provider Active Start: September 25, 2024 End: September 25, 2024 Dr. Neel Turner MD Referring Provider Active Start: September 25, 2024 End: September 25, 2024 Team Status: Active Member Role Status Dates Dr. Neel Turner MD Primary Care Provider Active Start: September 28, 2024 Dr. Neel Turner MD Attending Provider Active Start: September 28, 2024 Dr. Neel Turner MD Referring Provider Active Start: September 28, 2024 Team Status: Inactive Member Role Status Dates Dr. Neel Turner MD Primary Care Provider Active Start: October 07, 2024 End: October 07, 2024 Dr. Neel Turner MD Attending Provider Active Start: October 07, 2024 End: October 07, 2024 Dr. Neel Turner MD Referring Provider Active Start: October 07, 2024 End: October 07, 2024 Scheduled Active and Recently Administ ered Medications (unrecognized section and content) Medication Order 07/12/2023 07/13/2023 07/14/2023 sodium chloride 0.9 % bolus 1,000 mL (COMPLETED) 1,000 mL, intravenous, at 1,000 mL/hr, Administer over 1 Hours, Once, On Fri07/14/23 at 1200, For 1 dose 1206 (New Bag - Prov ider: Per Pino, RN)1251 (Stopped - Provider: Per Pino, MARVIN) PRN Medication Order 07/12/2023 07/13/2023 07/14/2023 oxygen (O2) therapy inhalation, Continuous PRN - O2/gases, other, Starting on Fri07/14/23 at 1202, Device: Nasal Cannula, Rate in liters per minute: 2 LPM 1202 (Start - Provid er: Reta Rachel CHIPPER OPERATOR) FOR RECORDS PERTAINING TO PATIENTS WHO ARE [...] BE BASED ON THE PRIMARY CLINICAL RECORDS. [employer] provides no warranty or guarantee of the accuracy or completeness of information in this document.
== END | disposition home or self-care (01) ==
LOC: LAB 09:38
PROVIDERS: PCP Family Medicine Geriatric Medicine; Referring Provider Family Medicine Geriatric Medicine; Visit Provider Family Medicine Geriatric Medicine
DX: I10 Essential (primary) hypertension (principal); E78.5 Hyperlipidemia, unspecified; Z12.5 Encounter for screening for malignant neoplasm of prostate
CPT/HCPCS: 36415; 80053; 80061; 84153; 84443; 85025; G0103

== ENCOUNTER → 2025-02-21 | Outpatient (CLI) | payer OTHER, SELFPAY | END | disposition home or self-care (01) | LOC: POLAB3 11:46 | PROVIDERS: PCP Family Medicine Geriatric Medicine; Visit Provider Family Medicine Geriatric Medicine | DX: R68.83 Chills (without fever) (principal) | CPT/HCPCS: 87631 ==

== ENCOUNTER → 2025-02-22 | Outpatient (CLI) | payer OTHER, SELFPAY | END | disposition home or self-care (01) | LOC: POLAB3 09:04 | PROVIDERS: PCP Family Medicine Geriatric Medicine; Visit Provider Family Medicine Geriatric Medicine | DX: Z00.00 Encounter for general adult medical examination without abnormal findings (principal) ==

== ENCOUNTER → 2025-05-16 | Outpatient (CLI) | payer MEDICAID, SELFPAY ==
[2025-05-16 10:03] LABS: Hematocrit 44.3 % (40-54); Hemoglobin 14.9 g/dL (13.0-16.5); Immature Granulocytes Count 0.020 X10^3/uL (0.0-0.0); Mean Corp Hgb Conc 33.6 g/dL (32-36); Mean Corpuscular Volume 92.5 fL (80-94); Mean Platelet Vol. 10.4 fl (6.2-12.0); NRBC Flagged by Analyzer 0 % (0-5); Platelet Count 270 K/mm3 (150-450); RBC Distribution Width CV 13.5 % (11.6-14.6); RBC Distribution Width SD 46.3 fl (35.1-43.9); Red Blood Count 4.79 M/mm3 (4.6-6.2); White Blood Count 7.6 K/mm3 (4.4-11.0)
[2025-05-16 10:53] LABS: AST(SGOT) 23 U/L (<=37); Alanine Aminotransfer ALT/SGPT 35 U/L (<=46); Albumin, Serum 4.3 g/dL (3.5-5.0); Alkaline Phosphatase 98 U/L (40-129); Anion Gap 9 (5-15); BUN 12 mg/dL (4-19); BUN/Creat Ratio 10.7 RATIO (10-20); Calcium,Total 9.2 mg/dL (7.6-11.0); Carbon Dioxide 26.7 mmol/L (21.0-32.0); Chloride 105 mmol/L (98-108); Cholesterol 153 mg/dL (<=200); Globulin 2.3 g/dL (2.2-4.2); Glucose 138 mg/dL (70-99); Low Density Lipoprotein Calc. 85 mg/dL; Potassium 4.0 mmol/L (3.3-5.1); Triglycerides 106 mg/dL; Very Low Density Lipoprotein 21 mg/dL (5-40); cholesterol:hdl ratio screen 3.15
[2025-05-16 16:35] LABS: Xtra Tube Kwok EXTRA TUBE
== END | disposition home or self-care (01) ==
PROVIDERS: PCP Family Medicine Geriatric Medicine; Visit Provider Family Medicine Geriatric Medicine
DX: E03.9 Hypothyroidism, unspecified (principal); E78.5 Hyperlipidemia, unspecified; I10 Essential (primary) hypertension
CPT/HCPCS: 36415; 80053; 80061; 84443; 85025